=== PATIENT | male | born 1960 | race Two or more races ===

== ENCOUNTER → 2016-05-16 | Outpatient (CLI) | payer OTHER | LOC: M LAB 18:11 | PROVIDERS: ATTEND Physician Assistant | DX: R73.9 Hyperglycemia, unspecified (principal) ==

== ENCOUNTER → 2016-12-26 | Outpatient (CLI) | payer OTHER ==
[2016-12-26 17:45] LABS: BASO % 0.5 % (0.0-1.0); EOS # 0.1 K/mm3 (0.0-0.50); EOS % 1.4 % (0.0-3.0); LARGE UNSTAINED CELL # 0.2 K/mm3 (0.0-0.4); LYMPH # 2.1 K/mm3 (1.5-4.5); MEAN CORPUSCULAR HEMOGLOBIN 31.8 pg (27.0-33.0); MEAN CORPUSCULAR HGB CONC 34.1 g/dl (32.0-36.5); MEAN CORPUSCULAR VOLUME 93.3 fl (80.0-96.0); MONO # 0.5 K/mm3 (0.0-0.8); MONO % 5.9 % (0.0-5.0); NEUTROPHILS # 5.7 K/mm3 (1.8-7.7); NEUTROPHILS % 67.2 % (36.0-66.0); PLATELET COUNT, AUTOMATED 202 k/mm3 (150-450); RED CELL DISTRIBUTION WIDTH 13.1 % (11.5-14.5); WHITE BLOOD COUNT 8.5 K/mm3 (4.0-10.0)
[2016-12-26 18:50] LABS: ALBUMIN 3.5 GM/DL (3.2-5.2); ALBUMIN/GLOBULIN RATIO 0.83 (1.00-1.93); ALKALINE PHOSPHATASE 76 U/L (45-117); ALT/SGPT 34 U/L (12-78); ANION GAP 11 MEQ/L (8-16); AST/SGOT 22 U/L (15-37); BILIRUBIN,TOTAL 0.8 MG/DL (0.2-1.0); BLOOD UREA NITROGEN 21 MG/DL (7-18); CALCIUM LEVEL 8.2 MG/DL (8.5-10.1); CARBON DIOXIDE LEVEL 23 MEQ/L (21-32); CHLORIDE LEVEL 108 MEQ/L (98-107); CHOLESTEROL LEVEL 167 MG/DL (<200); CREATININE FOR GFR 0.87 MG/DL (0.70-1.30); FREE T4 0.94 NG/DL (0.76-1.46); GLOMERULAR FILTRATION RATE > 60.0 (>56); GLUCOSE, FASTING 102 MG/DL (70-105); POTASSIUM SERUM 4.4 MEQ/L (3.5-5.1); SODIUM LEVEL 142 MEQ/L (136-145); TOTAL PROTEIN 7.7 GM/DL (6.4-8.2); TRIGLYCERIDES LEVEL 86 MG/DL (<150)
== END ==
LOC: M LAB 17:10
PROVIDERS: ATTEND Physician Assistant
DX: Z13.29 Encounter for screening for other suspected endocrine disorder (principal); Z13.21 Encounter for screening for nutritional disorder

== ENCOUNTER → 2017-03-28 | Day surgery (SDC) | payer OTHER ==
[~2017-03-28] VITALS: Ht 175.3 cm; Wt 154.2 kg
[~2017-03-28] MED LIST: COLA100C5 PO; GLUC1CAP10 PO; LIDOCAINE 2% INJ 100 MG/5 ML SDV (FOR ANES.) As Ordered ONE; LISI-538; MELO15TA4; METO1TAB7; MULT1TAB10 PO; NS 1,000 ML IV ONE; OXYB10TA; PROPOFOL 200 MG/20 ML VIAL As Ordered ONE; TRAM50TA2; VITA500T PO; VITATAB11 PO
== END ==
LOC: M OPP 07:21
PROVIDERS: ATTEND Internal Medicine Gastroenterology
DX: Z12.11 Encounter for screening for malignant neoplasm of colon (principal); Z53.9 Procedure and treatment not carried out, unspecified reason

== ENCOUNTER → 2017-03-29 | Outpatient (CLI) | payer OTHER ==
[~2017-03-29] MED LIST changes: -LIDOCAINE 2% INJ 100 MG/5 ML SDV (FOR ANES.) As Ordered ONE; -NS 1,000 ML IV ONE; -PROPOFOL 200 MG/20 ML VIAL As Ordered ONE
[2017-03-29 16:09] LABS: BASO % 0.5 % (0.0-1.0); EOS # 0.1 10^3/uL (0.0-0.50); EOS % 1.3 % (0.0-3.0); IMMATURE GRANULOCYTE % 0.8 % (0-0); LYMPH # 1.6 10^3/uL (1.5-4.5); LYMPH % 20.4 % (24.0-44.0); MEAN CORPUSCULAR HEMOGLOBIN 30.5 pg (27.0-33.0); MEAN CORPUSCULAR HGB CONC 33.3 g/dl (32.0-36.5); MEAN CORPUSCULAR VOLUME 91.6 fl (80.0-96.0); MONO # 0.7 10^3/uL (0.0-0.8); MONO % 8.6 % (0.0-5.0); NEUTROPHILS # 5.2 10^3/uL (1.8-7.7); NEUTROPHILS % 68.4 % (36.0-66.0); PLATELET COUNT, AUTOMATED 210 10^3/uL (150-450); RED CELL DISTRIBUTION WIDTH 13.2 % (11.5-14.5); WHITE BLOOD COUNT 7.7 10^3/uL (4.0-10.0)
[2017-03-29 16:38] LABS: ALBUMIN 3.6 GM/DL (3.2-5.2); ALBUMIN/GLOBULIN RATIO 0.88 (1.00-1.93); ALKALINE PHOSPHATASE 80 U/L (45-117); ALT/SGPT 36 U/L (12-78); ANION GAP 8 MEQ/L (8-16); AST/SGOT 23 U/L (7-37); BILIRUBIN,TOTAL 0.8 MG/DL (0.2-1.0); BLOOD UREA NITROGEN 19 MG/DL (7-18); CALCIUM LEVEL 9.1 MG/DL (8.5-10.1); CARBON DIOXIDE LEVEL 26 MEQ/L (21-32); CHLORIDE LEVEL 106 MEQ/L (98-107); CREATININE FOR GFR 0.85 MG/DL (0.70-1.30); FERRITIN 73 NG/ML (26-388); GLOMERULAR FILTRATION RATE > 60.0 (>56); GLUCOSE, FASTING 113 MG/DL (70-105); PERCENT SATURATION 24.7 % (19.7-50.0); SODIUM LEVEL 140 MEQ/L (136-145); TOTAL IRON BINDING CAPACITY 279 UG/DL (250-450); TOTAL PROTEIN 7.7 GM/DL (6.4-8.2)
== END ==
LOC: M LAB 15:19
PROVIDERS: ATTEND Physician Assistant
DX: Z12.5 Encounter for screening for malignant neoplasm of prostate (principal); D64.9 Anemia, unspecified; I10 Essential (primary) hypertension; E55.9 Vitamin D deficiency, unspecified

== ENCOUNTER → 2017-07-11 | Outpatient (CLI) | payer OTHER | LOC: M PAIN 11:15 | DX: G89.29 Other chronic pain (principal); M54.5 Low back pain; M25.572 Pain in left ankle and joints of left foot; M25.571 Pain in right ankle and joints of right foot; M79.672 Pain in left foot; M79.671 Pain in right foot; E66.01 Morbid (severe) obesity due to excess calories; I10 Essential (primary) hypertension; R26.89 Other abnormalities of gait and mobility; I87.2 Venous insufficiency (chronic) (peripheral); Z87.891 Personal history of nicotine dependence; Z79.899 Other long term (current) drug therapy; Z88.2 Allergy status to sulfonamides; Z68.43 Body mass index [BMI] 50.0-59.9, adult | CPT/HCPCS: G0463 ==

== ENCOUNTER 2017-08-19 14:47 | Emergency (ER) | payer OTHER ==
[2017-08-19 15:56] LABS: KETONE, URINE AUTO RFX NEGATIVE (NEGATIVE); LEUKOCYTE ESTERASE UR AUTO RFX NEGATIVE (NEGATIVE); RBC, URINE AUTO RFX 1 /HPF (0-3); SPECIFIC GRAVITY UR AUTO RFX 1.017 (1.002-1.035); SQUAM EPITHELIAL CELL UR AURFX 0 /HPF (0-6); WBC, URINE AUTO RFX 1 /HPF (0-3)
[2017-08-19 16:35] LABS: NITRITE, URINE AUTO RFX POSITIVE (NEGATIVE)
== END 2017-08-19 16:48 | disposition home or self-care (01) ==
LOC: M ED 14:47
DX: N30.00 Acute cystitis without hematuria (principal); I10 Essential (primary) hypertension; G47.30 Sleep apnea, unspecified; N40.1 Benign prostatic hyperplasia with lower urinary tract symptoms; Z79.82 Long term (current) use of aspirin; Z79.899 Other long term (current) drug therapy; Z88.2 Allergy status to sulfonamides
CPT/HCPCS: 81001

== ENCOUNTER → 2017-08-29 | Outpatient (CLI) | payer OTHER ==
[2017-08-29 16:04] LABS: BASO # 0.1 10^3/uL (0.0-0.2); BASO % 0.8 % (0.0-1.0); EOS # 0.1 10^3/uL (0.0-0.50); EOS % 1.4 % (0.0-3.0); HEMATOCRIT 39.3 % (42.0-52.0); HEMOGLOBIN 13.4 g/dl (13.5-17.5); LYMPH # 1.6 10^3/uL (1.5-4.5); LYMPH % 20.3 % (24.0-44.0); MEAN CORPUSCULAR HEMOGLOBIN 31.9 pg (27.0-33.0); MEAN CORPUSCULAR HGB CONC 34.1 g/dl (32.0-36.5); MEAN CORPUSCULAR VOLUME 93.6 fl (80.0-96.0); MONO # 0.6 10^3/uL (0.0-0.8); MONO % 6.9 % (0.0-5.0); NEUTROPHILS # 5.6 10^3/uL (1.8-7.7); NEUTROPHILS % 69.6 % (36.0-66.0); PLATELET COUNT, AUTOMATED 196 10^3/uL (150-450); RED CELL DISTRIBUTION WIDTH 12.7 % (11.5-14.5)
[2017-08-29 16:14] LABS: ESTIMATED AVERAGE GLUCOSE 131 MG/DL (60-110); HEMOGLOBIN A1c 6.2 %
[2017-08-29 16:27] LABS: ALBUMIN 3.4 GM/DL (3.2-5.2); ALBUMIN/GLOBULIN RATIO 0.83 (1.00-1.93); ALKALINE PHOSPHATASE 86 U/L (45-117); ALT/SGPT 38 U/L (12-78); ANION GAP 7 MEQ/L (8-16); AST/SGOT 22 U/L (7-37); BILIRUBIN,TOTAL 0.6 MG/DL (0.2-1.0); BLOOD UREA NITROGEN 21 MG/DL (7-18); CALCIUM LEVEL 8.8 MG/DL (8.5-10.1); CARBON DIOXIDE LEVEL 26 MEQ/L (21-32); CHLORIDE LEVEL 108 MEQ/L (98-107); CREATININE FOR GFR 0.95 MG/DL (0.70-1.30); GLOMERULAR FILTRATION RATE > 60.0 (>56); GLUCOSE, FASTING 171 MG/DL (70-100); SODIUM LEVEL 141 MEQ/L (136-145); TOTAL 25(OH) VITAMIN D 30.8 NG/ML (30.0-100.0); TOTAL PROTEIN 7.5 GM/DL (6.4-8.2)
== END ==
LOC: M LAB 15:32
DX: R73.9 Hyperglycemia, unspecified (principal); I10 Essential (primary) hypertension; E55.9 Vitamin D deficiency, unspecified; R10.9 Unspecified abdominal pain
CPT/HCPCS: 74021

== ENCOUNTER → 2017-09-12 | Outpatient (CLI) | payer OTHER | LOC: M PAIN 14:00 | DX: G89.29 Other chronic pain (principal); M25.50 Pain in unspecified joint; M54.5 Low back pain; M79.672 Pain in left foot; M79.671 Pain in right foot; E66.01 Morbid (severe) obesity due to excess calories; I87.2 Venous insufficiency (chronic) (peripheral); R26.89 Other abnormalities of gait and mobility; I10 Essential (primary) hypertension; Z68.43 Body mass index [BMI] 50.0-59.9, adult; Z88.2 Allergy status to sulfonamides; Z79.891 Long term (current) use of opiate analgesic; Z79.899 Other long term (current) drug therapy | CPT/HCPCS: G0463 ==

== ENCOUNTER → 2017-11-07 | Outpatient (REF) | payer OTHER ==
[2017-11-07 19:07] LABS: AMORPHOUS SEDIMENT SMALL (NEGATIVE); APPEARANCE, URINE HAZY (CLEAR); BACTERIA, URINE AUTO NEGATIVE (NEGATIVE); BILIRUBIN, URINE AUTO NEGATIVE (NEGATIVE); BLOOD, URINE BLOOD NEGATIVE (NEGATIVE); COLOR, URINE YELLOW (YELLOW); GLUCOSE, URINE (UA) AUTO NEGATIVE (NEGATIVE); KETONE, URINE AUTO NEGATIVE (NEGATIVE); LEUKOCYTE ESTERASE, URINE AUTO NEGATIVE (NEGATIVE); MUCUS, URINE SMALL (NEGATIVE); NITRITE, URINE AUTO NEGATIVE (NEGATIVE); PROTEIN, URINE AUTO NEGATIVE (NEGATIVE); RBC, URINE AUTO 0 /HPF (0-3); SPECIFIC GRAVITY URINE AUTO 1.021 (1.002-1.035); SQUAMOUS EPITHELIAL CELL UR AU 1 /HPF (0-6); WBC, URINE AUTO 0 /HPF (0-3)
== END ==
LOC: M SMT 18:01
DX: N32.81 Overactive bladder (principal)
CPT/HCPCS: 81001

== ENCOUNTER → 2018-01-09 | Outpatient (CLI) | payer OTHER | LOC: M PAIN 11:45 | DX: M25.50 Pain in unspecified joint (principal); M54.5 Low back pain; M79.672 Pain in left foot; M79.671 Pain in right foot; G89.29 Other chronic pain; I10 Essential (primary) hypertension; G47.30 Sleep apnea, unspecified; E55.9 Vitamin D deficiency, unspecified; R73.9 Hyperglycemia, unspecified; E66.01 Morbid (severe) obesity due to excess calories; Z68.43 Body mass index [BMI] 50.0-59.9, adult; Z79.891 Long term (current) use of opiate analgesic; Z79.899 Other long term (current) drug therapy; Z88.2 Allergy status to sulfonamides | CPT/HCPCS: G0463 ==

== ENCOUNTER → 2018-06-05 | Outpatient (CLI) | payer OTHER ==
[~2018-06-05] MED LIST changes: +MACR100C43 PO; +MELO15TA28; -MELO15TA4
--- NOTE | 2018-06-13 01:16 | ECWPNPC ---
PATIENT NAME: RASHEEDA WELLER : 1960 GENDER: MALE VISIT DATE: 06/05/2018 DISCHARGE DATE: 06/05/18 1514 VISIT LOCKED DATE TIME: PHYSICIAN: JASON FRANCOIS RESOURCE: JASON FRANCOIS REASON FOR APPOINTMENT 1. APOLINAR FOOT AND KNEE PAIN HISTORY OF PRESENT ILLNESS HISTORY OF PRESENT ILLNESS: HERE FOR F/U OF CHRONIC BILAT. 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 PER DAY PRN FOR SEVERE PAIN EPISODES. PAIN THE PATIENT DESCRIBES THE PAIN... THE PATIENT DESCRIBES THE PAIN... THE PATIENT DESCRIBES THE PAIN... FALL RISK SCREENING: SCREENING :NO FALLS IN THE PAST YEAR CURRENT MEDICATIONS TAKING MULTIVITAMINS - CAPSULE ORALLY TAKING TRAMADOL HCL 50 MG TABLET 1 TABLET NEEDED ORALLY TID MDD#3 TAKING B COMPLEX - TABLET ORALLY TAKING TOPROL XL 50 MG TABLET EXTENDED RELEASE 24 HOUR 1 TABLET ORALLY ONCE A DAY TAKING LISINOPRIL 20 MG TABLET 1 TABLET ORALLY ONCE A DAY TAKING MOBIC 15 MG TABLET 1 TABLET ORALLY ONCE A DAY TAKING COLACE 100 MG CAPSULE 1 CAPSULE NEEDED ORALLY ONCE A DAY TAKING DRISDOL 94025 UNIT CAPSULE 1 CAPSULE ORALLY WEEKLY TAKING FLOMAX 0.4 MG CAPSULE 1 CAPSULE ORALLY ONCE A DAY MEDICATION LIST REVIEWED AND RECONCILED WITH THE PATIENT PAST MEDICAL HISTORY STASIS DERMATITIS MORBID OBESITY STASIS ULCER CHROMIC KNEE AND FOOT PAIN HTN HYPERKALEMIA SLEEP APNEA = VITAMIN D DEFICIENCY HYPERGLYCEMIA ANEMIA OAB, FREQ, URENCY ALLERGIES SULFA (FOR ALLERGY USE ONLY): STOMACH PAIN: SIDE EFFECTS SURGICAL HISTORY DEEP WOUND IN LUNG REPAIR 2009 FAMILY HISTORY FATHER: 60 YRS, QUADRUPAL BI-PASS, OF ESOPHOGEAL CANCER, DIAGNOSED WITH CANCER MOTHER: ALIVE 78 YRS, DIAGNOSED WITH HYPERTENSION SIBLINGS: ALIVE 54 YRS, BACK ISSUES. SISTER DISABLED, SISTER KIDNEY FAILURE, SISTER HAS KIDNEY STONES, DIAGNOSED WITH OTHER 1 SISTER(S) . SISTER: DIABLED D/T ABUSE FROM EX AND BACK RELATED ISSUES; HAS HAD CA PREVIOUSLY X2-PT UNSURE WHAT TYPE; HX OF KIDNEY STONES. SOCIAL HISTORY GENERAL: TOBACCO USE ARE YOU A:NONSMOKER LUNG CANCER SCREENING SMOKING STATUS:NON SMOKER BMI CARE GOAL FOLLOW-UP ABOVE NORMAL BMI FOLLOW-UPDIETARY MANAGEMENT EDUCATION, GUIDANCE, AND COUNSELING ALCOHOL SCREENING POINTS6 INTERPRETATIONPOSITIVE DID YOU HAVE A DRINK CONTAINING ALCOHOL IN THE PAST YEAR?YES HOW OFTEN DID YOU HAVE A DRINK CONTAINING ALCOHOL IN THE PAST YEAR?FOUR OR MORE TIMES A WEEK (4 POINTS) HOW MANY DRINKS DID YOU HAVE ON A TYPICAL DAY WHEN YOU WERE DRINKING IN THE PAST YEAR?3 OR 4 (1 POINT) HOW OFTEN DID YOU HAVE SIX OR MORE DRINKS ON ONE OCCASION IN THE PAST YEAR?LESS THAN MONTHLY (1 POINT) RECREATIONAL DRUG USE DRUG USE?NO CAFFEINE CAFFEINE USE?YES ENERGY DRINKS = 1 CAN PER DAY SODA = 1 CAN PER DAY HOW OFTEN AND HOW MUCH? 1 DAILY SEXUAL HX HAD SEX IN THE LAST 12 MONTHS (VAGINAL, ORAL, OR ANAL)?NO HAVE YOU EVER HAD AN STD?NO HIV / HEP-C SCREENING HIV TEST OFFERED TO PATIENT:YES DATE OFFERED:05/17/2016 TEST ACCEPTED:NO REASON:PATIENT DECLINED ALREADY TESTED HEP-C TEST OFFERED TO PATIENT:YES DATE OFFERED:05/17/2016 TEST ACCEPTED:NO REASON:PATIENT DECLINED ALREADY TESTED MANDAEISM [id number] NONE LANGUAGE LANGUAGES SPOKEN:PORTUGUESE EDUCATION LEVEL OF EDUCATION:FINISHED COLLEGE LEARNING BARRIERS / SPECIAL NEEDS CHANGE FROM LAST VISIT?NO BARRIERS TO LEARNING?NO HEARING IMPAIRED?NO VISION IMPAIRED?NO COGNITIVELY IMPAIRED?NO READINESS TO LEARN?YES LEARNING PREFERENCES?NO LEARNING CAPABILITIES PRESENT?YES EMOTIONAL BARRIERS?NO SPECIAL DEVICES?NO COGNOS ANALYST NEEDED?NO DOMESTIC VIOLENCE STATUS: DENIES 04/2018 DO YOU FEEL SAFE IN YOUR ENVIRONMENT?YES OCCUPATION: [employer] DIET: REGULAR. EXERCISE: NO REGULAR EXERCISE. MARITAL STATUS: SINGLE. OTHERS AT HOME: SISTER, NEPHEW. PAIN CLINIC PFS, CLERGY, PUBLIC HEALTH REFERRALS HAS THE PATIENT BEEN EDUCATED REGARDING HIS/HER PLAN OF CARE?YES HAS THE PATIENT BEEN EDUCATED REGARDING PAIN, THE RISK FOR PAIN, THE IMPORTANCE OF EFFECTIVE PAIN MANAGEMENT, AND THE PAIN ASSESSMENT PROCESS?YES PFS REFERRAL NEEDED?NO CLERGY REFERRAL NEEDED?NO PUBLIC HEALTH REFERRAL NEEDED?NO WAS THE PROVIDER NOTIFIED OF ANY PERTINENT INFO?NO HOUSING: SISTER, NEICE, NEPHEW. ADVANCE DIRECTIVE ADVANCE DIRECTIVE DISCUSSED WITH PATIENT:YES PT DOES NOT HAVE A HCP AND DECLINES INFO/ASSISTANCE WITH FORM AT THIS TIME. 06/05/18 BV REVIEWED WITH PT 06/05/18 [id number] BV. HOSPITALIZATION/MAJOR DIAGNOSTIC PROCEDURE SURGERY RELATED REVIEW OF SYSTEMS REVIEWED BY: PROVIDER: JASON BIRMINGHAM . CONSTITUTIONAL: ANY CHANGE IN YOUR MEDICAL CONDITION? NO . CHILLS NO . FEVER NO . INFECTION: DO YOU HAVE NEW INFECTIONS? YES, STATES HE HAS CURRENT EAR INFECTION IN LEFT EAR. HAS NOT SEEN PRIMARY DOCTOR YET FOR THIS. . DO YOU HAVE HISTORY OF MRSA? NO . MUSCULOSKELETAL: ANY NEW PATTERNS OF PAIN OR NUMBNESS? NO . GASTROENTEROLOGY: ANY NEW CHANGE IN BOWEL CONTROL? NO . GENITOURINARY: ANY NEW CHANGE IN BLADDER CONTROL? NO . IS THERE A CHANCE YOU COULD BE ? NO . HEMATOLOGY/LYMPH: DO YOU TAKE ANY BLOOD THINNERS? (FOR EXAMPLE- COUMADIN, PLAVIX, AGGRENOX, PLATEL, PRADAXA, OR XARELTO) NO . WHEN WAS YOUR LAST DOSE? DATE: TIME: . NEUROLOGY: HAVE YOU FALLEN IN THE PAST 12 MONTHS? NO . ANY NEW EXTREMITY NUMBNESS OR WEAKNESS? NO . CARDIOLOGY: DO YOU HAVE A PACEMAKER OR DEFIBRILLATOR? NO . RESPIRATORY: HAVE YOU BEEN SICK IN THE PAST WEEK? NO . FEVER NO . FLU LIKE SYMPTOMS? NO . COUGH NO . INTEGUMENTARY: DO YOU HAVE ANY RASHES OR OPEN SORES? NO . ALLERGIC/IMMUNO: ARE YOU ALLERGIC TO IV DYE? NO . ANY NEW ALLERGIES? NO . PSYCHIATRIC: DO YOU HAVE THOUGHTS OF HURTING YOURSELF OR SOMEONE ELSE? NO . ARE YOU ABUSED, NEGLECTED, OR IN AN UNSAFE ENVIRONMENT? NO . ENDOCRINOLOGY: ARE YOU DIABETIC? NO . OTHER: DO YOU NEED ANY PRESCRIPTIONS? YES, TRAMADOL . IF YES, PLEASE LIST: ____ . ANY NEW PROBLEMS WITH YOUR MEDICATIONS? NO . WHEN DID YOU LAST EAT? ____ . WHEN DID YOU LAST DRINK? ____ . WHAT DID YOU LAST DRINK? ____ . NAME OF PERSON DRIVING YOU HOME? ____ . DO YOU HAVE ANY OTHER QUESTIONS OR CONCERNS NO . VITAL SIGNS WT 357.8 LBS, HT 69 IN, BMI 52.83 INDEX, BP 154/74 MM HG, HR 80 /MIN, RR 18 /MIN, TEMP 99.4 F, OXYGEN SAT % 95%, NA INITIALS SC 14:19, REVIEWED BY: BV. EXAMINATION GENERAL EXAMINATION: GENERAL APPEARANCE:AWAKE,ALERT ,PLEAASANT . PSYCHAFFECT NORMAL . LUNGS:LUNG ARENAS ARE CLEAR TO AUSCULTATION BILATERALLY. GOOD MOVEMENT OF AIR . HEART:S1, S2 IN A REGULAR RATE AND RHYTHM. NO SIGNIFICANT MURMURS, RUBS OR GALLOPS NOTED . ASSESSMENTS ARTHRITIC-LIKE PAIN - M25.50 (PRIMARY) TREATMENT ARTHRITIC-LIKE PAIN REFILL TRAMADOL HCL TABLET, 50 MG, 1 TABLET NEEDED, ORALLY, TID MDD#3, 30 DAY(S), 90, REFILLS 2 NOTES: ISTOP REGISTRY REVIEWED AND DEMONSTRATES COMPLLIANCE. PROCEDURE CODES FA211 ESTABILISHED PATIENT [facility] CHARGE DISPOSITION & COMMUNICATION FOLLOW UP 3 MONTHS ELECTRONICALLY SIGNED BY VINNIE THORNTON ON 06/12/2018 AT 04:48 PM EST DISCLAIMER : THIS IS A VISIT SUMMARY EXTRACTED FROM THE [employer] CHART. IT IS NOT A COPY OF THE [employer] PROGRESS NOTE. JUNITOD
== END ==
LOC: M PAIN 14:00
PROVIDERS: ATTEND Nurse Practitioner Family
DX: M25.50 Pain in unspecified joint (principal); G89.29 Other chronic pain; I10 Essential (primary) hypertension; E87.5 Hyperkalemia; G47.33 Obstructive sleep apnea (adult) (pediatric); E66.01 Morbid (severe) obesity due to excess calories; Z68.43 Body mass index [BMI] 50.0-59.9, adult; Z88.2 Allergy status to sulfonamides; Z79.1 Long term (current) use of non-steroidal anti-inflammatories (NSAID); Z79.899 Other long term (current) drug therapy

== ENCOUNTER → 2018-07-03 | Outpatient (CLI) | payer OTHER ==
[2018-07-03 15:43] LABS: BASO % 0.5 % (0.0-1.0); EOS # 0.1 10^3/uL (0.0-0.50); EOS % 1.2 % (0.0-3.0); HEMATOCRIT 41.5 % (42.0-52.0); HEMOGLOBIN 13.7 g/dl (13.5-17.5); LYMPH # 1.5 10^3/uL (1.5-4.5); LYMPH % 18.1 % (24.0-44.0); MEAN CORPUSCULAR HEMOGLOBIN 29.8 pg (27.0-33.0); MEAN CORPUSCULAR VOLUME 90.4 fl (80.0-96.0); MONO # 0.6 10^3/uL (0.0-0.8); MONO % 7.9 % (0.0-5.0); NEUTROPHILS # 5.8 10^3/uL (1.8-7.7); NEUTROPHILS % 71.4 % (36.0-66.0); PLATELET COUNT, AUTOMATED 215 10^3/uL (150-450); RED BLOOD COUNT 4.59 10^6/uL (4.30-6.10); WHITE BLOOD COUNT 8.1 10^3/uL (4.0-10.0)
[2018-07-03 15:58] LABS: HEMOGLOBIN A1c 6.5 %
== END ==
LOC: M LAB 14:52
PROVIDERS: ATTEND Physician Assistant
DX: I10 Essential (primary) hypertension (principal); R73.9 Hyperglycemia, unspecified; F41.9 Anxiety disorder, unspecified; E55.9 Vitamin D deficiency, unspecified

== ENCOUNTER → 2018-07-10 | Outpatient (CLI) | payer OTHER ==
[2018-07-10 18:21] LABS: ALBUMIN 3.4 GM/DL (3.2-5.2); ALT/SGPT 34 U/L (12-78); BILIRUBIN,TOTAL 0.7 MG/DL (0.2-1.0); BLOOD UREA NITROGEN 21 MG/DL (7-18); CALCIUM LEVEL 8.8 MG/DL (8.5-10.1); CARBON DIOXIDE LEVEL 27 MEQ/L (21-32); CHLORIDE LEVEL 108 MEQ/L (98-107); CREATININE FOR GFR 0.86 MG/DL (0.70-1.30); GLOMERULAR FILTRATION RATE > 60.0 (>56); GLUCOSE, FASTING 108 MG/DL (70-100); POTASSIUM SERUM 4.2 MEQ/L (3.5-5.1); SODIUM LEVEL 142 MEQ/L (136-145); TOTAL PROTEIN 7.5 GM/DL (6.4-8.2)
[2018-07-10 18:27] LABS: TOTAL 25(OH) VITAMIN D 41.9 NG/ML (30.0-100.0)
== END ==
LOC: M LAB 17:05
PROVIDERS: ATTEND Physician Assistant
DX: R73.9 Hyperglycemia, unspecified (principal); F41.9 Anxiety disorder, unspecified; E55.9 Vitamin D deficiency, unspecified

== ENCOUNTER → 2018-11-20 | Outpatient (CLI) | payer OTHER ==
--- NOTE | 2018-12-02 01:20 | ECWPNPC ---
PATIENT NAME: RASHEEDA WELLER : 1960 GENDER: MALE VISIT DATE: 11/20/2018 DISCHARGE DATE: 11/20/18 1521 VISIT LOCKED DATE TIME: PHYSICIAN: JASON FRANCOIS RESOURCE: JASON FRANCOIS REASON FOR APPOINTMENT 1. FOOT/LEG HISTORY OF PRESENT ILLNESS HISTORY OF PRESENT ILLNESS: HERE FOR F/U OF CHRONIC BILAT. KNEE PAIN AND FOOT PAIN.USING TRAMADOL ON A REGULAR BASIS PRN FOR SEVERE PAIN WITH GOOD EFFECT.RATING PAIN VAS 6/10. PAIN THE PATIENT DESCRIBES THE PAIN... FALL RISK SCREENING: SCREENING :NO FALLS REPORTED IN THE LAST YEAR CURRENT MEDICATIONS TAKING MULTIVITAMINS - CAPSULE ORALLY TAKING B COMPLEX - TABLET ORALLY TAKING COLACE 100 MG CAPSULE 1 CAPSULE NEEDED ORALLY ONCE A DAY TAKING DRISDOL 02498 UNIT CAPSULE 1 CAPSULE ORALLY WEEKLY TAKING FLOMAX 0.4 MG CAPSULE 1 CAPSULE ORALLY ONCE A DAY TAKING TRAMADOL HCL 50 MG TABLET 1 TABLET NEEDED ORALLY TID MDD#3 TAKING LISINOPRIL 20 MG TABLET 1 TABLET ORALLY ONCE A DAY TAKING MOBIC 15 MG TABLET 1 TABLET ORALLY ONCE A DAY TAKING TOPROL XL 50 MG TABLET EXTENDED RELEASE 24 HOUR 1 TABLET ORALLY ONCE A DAY MEDICATION LIST REVIEWED AND RECONCILED WITH THE PATIENT PAST MEDICAL HISTORY STASIS DERMATITIS MORBID OBESITY STASIS ULCER CHROMIC KNEE AND FOOT PAIN HTN HYPERKALEMIA SLEEP APNEA = VITAMIN D DEFICIENCY HYPERGLYCEMIA ANEMIA OAB, FREQ, URENCY ALLERGIES SULFA (FOR ALLERGY USE ONLY): STOMACH PAIN - SIDE EFFECTS SURGICAL HISTORY DEEP WOUND IN LUNG REPAIR 2009 FAMILY HISTORY FATHER: 60 YRS, QUADRUPAL BI-PASS, OF ESOPHOGEAL CANCER, DIAGNOSED WITH CANCER MOTHER: ALIVE 78 YRS, HYPERTENSION SIBLINGS: ALIVE 54 YRS, BACK ISSUES. SISTER DISABLED, SISTER KIDNEY FAILURE, SISTER HAS KIDNEY STONES, OTHER 1 SISTER(S) . SISTER: DIABLED D\/T ABUSE FROM EX AND BACK RELATED ISSUES; HAS HAD CA PREVIOUSLY X2-PT UNSURE WHAT TYPE; HX OF KIDNEY STONES. SOCIAL HISTORY GENERAL: TOBACCO USE ARE YOU A:NONSMOKER HIV / HEP-C SCREENING HIV TEST OFFERED TO PATIENT:YES DATE OFFERED:05/17/2016 TEST ACCEPTED:NO REASON:PATIENT DECLINED ALREADY TESTED HEP-C TEST OFFERED TO PATIENT:YES DATE OFFERED:05/17/2016 TEST ACCEPTED:NO REASON:PATIENT DECLINED ALREADY TESTED OTHERS AT HOME: SISTER, NEPHEW. HOUSING: SISTER, NELINSEY, NEPHEW. EDUCATION LEVEL OF EDUCATION:FINISHED COLLEGE DIET: REGULAR. LANGUAGE LANGUAGES SPOKEN:[place] DOMESTIC VIOLENCE DO YOU FEEL SAFE IN YOUR ENVIRONMENT?YES BMI CARE GOAL FOLLOW-UP ABOVE NORMAL BMI FOLLOW-UPDIETARY MANAGEMENT EDUCATION, GUIDANCE, AND COUNSELING RECREATIONAL DRUG USE DRUG USE?NO EXERCISE: NO REGULAR EXERCISE. LEARNING BARRIERS / SPECIAL NEEDS CHANGE FROM LAST VISIT?NO BARRIERS TO LEARNING?NO HEARING IMPAIRED?NO VISION IMPAIRED?NO COGNITIVELY IMPAIRED?NO READINESS TO LEARN?YES LEARNING PREFERENCES?NO LEARNING CAPABILITIES PRESENT?YES EMOTIONAL BARRIERS?NO SPECIAL DEVICES?NO PHOTOVOLTAIC POWER SYSTEMS ENGINEER NEEDED?NO LUNG CANCER SCREENING SMOKING STATUS:NON SMOKER PAIN CLINIC PFS, CLERGY, PUBLIC HEALTH REFERRALS HAS THE PATIENT BEEN EDUCATED REGARDING HIS/HER PLAN OF CARE?YES HAS THE PATIENT BEEN EDUCATED REGARDING PAIN, THE RISK FOR PAIN, THE IMPORTANCE OF EFFECTIVE PAIN MANAGEMENT, AND THE PAIN ASSESSMENT PROCESS?YES LATEX QUESTIONNAIRE LATEX ALLERGY : HAVE YOU EVER DEVELOPED ANY TYPE OF REACTION AFTER HANDLING LATEX PRODUCTS SUCH RUBBER GLOVES, CONDOMS, DIAPHRAGMS, BALLOONS, SOCKS, OR UNDERWEAR?NO LATEX ALLERGY : HAVE YOU EVER DEVELOPED ANY TYPE OF REACTION DURING OR AFTER DENTAL APPOINTMENT, VAGINAL/RECTAL EXAMINATION, SURGICAL PROCEDURE, OR ANY OTHER EXPOSURE?NO LATEX RISK : HAVE YOU EVER HAD ANY DIFFICULTY BREATHING OR HIVES AFTER EATING OR HANDLING ANY FRUITS, OR VEGETABLES; SUCH KIWI, BANANAS, STONE FRUITS, OR CHESTNUTSNO LATEX RISK : DO YOU HAVE A PREVIOUS PERSONAL HISTORY OF MORE THAN NINE SURGERIES, SPINA BIFIDA, OR REPEATED CATHERIZATIONS? NO LATEX RISK : ARE YOU FREQUENTLY EXPOSED TO LATEX PRODUCTS IN YOUR OCCUPATION?YES DATE ASKED : 07/17/2018 CAFFEINE CAFFEINE USE?YES ENERGY DRINKS = 1 CAN PER DAY SODA = 1 CAN PER DAY HOW OFTEN AND HOW MUCH? 1 DAILY ADVANCE DIRECTIVE ADVANCE DIRECTIVE DISCUSSED WITH PATIENT:YES PT DOES NOT HAVE A HCP AND DECLINES INFO/ASSISTANCE WITH FORM AT THIS TIME. YARSANISM [id number] NONE MARITAL STATUS: SINGLE. ALCOHOL SCREENING DID YOU HAVE A DRINK CONTAINING ALCOHOL IN THE PAST YEAR?YES HOW OFTEN DID YOU HAVE A DRINK CONTAINING ALCOHOL IN THE PAST YEAR?FOUR OR MORE TIMES A WEEK (4 POINTS) HOW MANY DRINKS DID YOU HAVE ON A TYPICAL DAY WHEN YOU WERE DRINKING IN THE PAST YEAR?3 OR 4 (1 POINT) HOW OFTEN DID YOU HAVE SIX OR MORE DRINKS ON ONE OCCASION IN THE PAST YEAR?LESS THAN MONTHLY (1 POINT) POINTS6 INTERPRETATIONPOSITIVE OCCUPATION: [employer]. SEXUAL HX HAD SEX IN THE LAST 12 MONTHS (VAGINAL, ORAL, OR ANAL)?NO HAVE YOU EVER HAD AN STD?NO REVIEWED 06/16/18 LYNDSEY RNREVIEWED WITH PATIENT 11/20/18 1429 JS. HOSPITALIZATION/MAJOR DIAGNOSTIC PROCEDURE SURGERY RELATED REVIEW OF SYSTEMS REVIEWED BY: PROVIDER: JASON BIRMINGHAM . CONSTITUTIONAL: ANY CHANGE IN YOUR MEDICAL CONDITION? NO . CHILLS NO . FEVER NO . INFECTION: DO YOU HAVE NEW INFECTIONS? NO . DO YOU HAVE HISTORY OF MRSA? YES, HISTORY OF MRSA IN ANKLE . MUSCULOSKELETAL: ANY NEW PATTERNS OF PAIN OR NUMBNESS? NO . GASTROENTEROLOGY: ANY NEW CHANGE IN BOWEL CONTROL? NO . GENITOURINARY: ANY NEW CHANGE IN BLADDER CONTROL? NO . IS THERE A CHANCE YOU COULD BE ? NO . HEMATOLOGY/LYMPH: DO YOU TAKE ANY BLOOD THINNERS? (FOR EXAMPLE- COUMADIN, PLAVIX, AGGRENOX, PLATEL, PRADAXA, OR XARELTO) NO . WHEN WAS YOUR LAST DOSE? DATE: TIME: . NEUROLOGY: HAVE YOU FALLEN IN THE PAST 12 MONTHS? NO . ANY NEW EXTREMITY NUMBNESS OR WEAKNESS? NO . CARDIOLOGY: DO YOU HAVE A PACEMAKER OR DEFIBRILLATOR? NO . RESPIRATORY: HAVE YOU BEEN SICK IN THE PAST WEEK? NO . FEVER NO . FLU LIKE SYMPTOMS? NO . COUGH NO . INTEGUMENTARY: DO YOU HAVE ANY RASHES OR OPEN SORES? YES, OPEN SORE TO BACK OF RIGHT ANKLE . ALLERGIC/IMMUNO: ARE YOU ALLERGIC TO IV DYE? NO . ANY NEW ALLERGIES? NO . PSYCHIATRIC: DO YOU HAVE THOUGHTS OF HURTING YOURSELF OR SOMEONE ELSE? NO . ARE YOU ABUSED, NEGLECTED, OR IN AN UNSAFE ENVIRONMENT? NO . ENDOCRINOLOGY: ARE YOU DIABETIC? NO . OTHER: DO YOU NEED ANY PRESCRIPTIONS? YES . IF YES, PLEASE LIST: ____TRAMADOL . ANY NEW PROBLEMS WITH YOUR MEDICATIONS? NO . WHEN DID YOU LAST EAT? ____ . WHEN DID YOU LAST DRINK? ____ . WHAT DID YOU LAST DRINK? ____ . NAME OF PERSON DRIVING YOU HOME? ____ . DO YOU HAVE ANY OTHER QUESTIONS OR CONCERNS NO . VITAL SIGNS WT 361.2 LBS, HT 69 IN, BMI 53.33 INDEX, BP 167/70 MM HG, HR 76 /MIN, RR 18 /MIN, TEMP 97.5 F, OXYGEN SAT % 94%, SAFE IN ENV? (Y/N) YES, NA INITIALS SC 14:20, REVIEWED BY: MELL. EXAMINATION GENERAL EXAMINATION: GENERALAWAKE,ALERT ,PLEAASANT . PSYCHAFFECT NORMAL . LUNGS:LUNG ARENAS ARE CLEAR TO AUSCULTATION BILATERALLY. GOOD MOVEMENT OF AIR . HEART:S1, S2 IN A REGULAR RATE AND RHYTHM. NO SIGNIFICANT MURMURS, RUBS OR GALLOPS NOTED . ASSESSMENTS ARTHRITIC-LIKE PAIN - M25.50 (PRIMARY) TREATMENT ARTHRITIC-LIKE PAIN CONTINUE TRAMADOL HCL TABLET, 50 MG, 1 TABLET NEEDED, ORALLY, TID MDD#3 CONTINUE MOBIC TABLET, 15 MG, 1 TABLET, ORALLY, ONCE A DAY NOTES: ISTOP REGISTRY REVIEWED AND DEMONSTRATES COMPLLIANCE. BRINGS IN MEDICATIONS WHICH IS APPROPRIATE FOR WHAT WAS DISPENSED. RECENT URINE TOXICOLOGY REVIEWED. NO UNAUTHORIZED MEDICATIONS. NO ILLICIT SUBSTANCES AND PRESCRIBED MEDICATIONS WERE PRESENT. URINE TOX TODAY, RISKS AND BENEFITS OF NARCOTIC/OPIOD MEDICATIONS WERE REVIEWED WITH PATIENT - THIS INCLUDES BUT IS NOT LIMITED TO RISK OF DEPENDANCE/DEVELOPMENT OF ADDICTION, MOOD DISTURBANCE AND DEPRESSION, OSTEOPOROSIS, HORMONAL AND LABIDAL CHANGES, RESPIRATORY DEPRESSION AND . PATIENT IS ADVISED NOT TO DRIVE OR DRINK ALCOHOL WHILE ON THESE MEDICATIONS, RISKS AND BENEFITS OF NARCOTIC/OPIOD MEDICATIONS WERE REVIEWED WITH PATIENT - THIS INCLUDES BUT IS NOT LIMITED TO RISK OF DEPENDANCE/DEVELOPMENT OF ADDICTION, MOOD DISTURBANCE AND DEPRESSION, OSTEOPOROSIS, HORMONAL AND LABIDAL CHANGES, RESPIRATORY DEPRESSION AND . PATIENT IS ADVISED NOT TO DRIVE OR DRINK ALCOHOL WHILE ON THESE MEDICATIONS. PROCEDURE CODES FA211 ESTABILISHED PATIENT [facility] CHARGE DISPOSITION & COMMUNICATION FOLLOW UP 3 MONTHS (REASON: MED MGMNT) ELECTRONICALLY SIGNED BY VINNIE THORNTON ON 12/01/2018 AT 03:41 PM EDT DISCLAIMER : THIS IS A VISIT SUMMARY EXTRACTED FROM THE [employer] CHART. IT IS NOT A COPY OF THE [employer] PROGRESS NOTE. GAURAV
== END ==
LOC: M PAIN 13:30
PROVIDERS: ATTEND Nurse Practitioner Family
DX: M25.561 Pain in right knee (principal); M25.562 Pain in left knee; E66.01 Morbid (severe) obesity due to excess calories; I10 Essential (primary) hypertension; E87.5 Hyperkalemia; G47.30 Sleep apnea, unspecified; E55.9 Vitamin D deficiency, unspecified; R73.9 Hyperglycemia, unspecified; I87.2 Venous insufficiency (chronic) (peripheral); D64.9 Anemia, unspecified; N32.81 Overactive bladder; Z79.891 Long term (current) use of opiate analgesic; Z79.899 Other long term (current) drug therapy; Z79.1 Long term (current) use of non-steroidal anti-inflammatories (NSAID); Z88.2 Allergy status to sulfonamides

== ENCOUNTER → 2019-02-05 | Outpatient (CLI) | payer OTHER ==
[~2019-02-05] MED LIST changes: -OXYB10TA; +OXYB10TA2
[2019-02-05 12:01] LABS: BASO # 0.1 10^3/uL (0.0-0.2); BASO % 0.7 % (0.0-1.0); EOS # 0.2 10^3/uL (0.0-0.5); EOS % 1.9 % (0.0-3.0); HEMOGLOBIN 12.9 g/dl (13.5-17.5); LYMPH # 1.6 10^3/uL (1.5-5.0); MEAN CORPUSCULAR HEMOGLOBIN 31.3 pg (27.0-33.0); MEAN CORPUSCULAR HGB CONC 33.9 g/dl (32.0-36.5); MEAN CORPUSCULAR VOLUME 92.2 fl (80.0-96.0); MONO # 0.8 10^3/uL (0.0-0.8); NEUTROPHILS # 5.3 10^3/uL (1.5-8.5); PLATELET COUNT, AUTOMATED 234 10^3/uL (150-450); RED BLOOD COUNT 4.12 10^6/uL (4.30-6.10)
[2019-02-05 12:24] LABS: HEMOGLOBIN A1c 6.2 %
[2019-02-05 12:26] LABS: ALBUMIN 3.3 GM/DL (3.2-5.2); ALT/SGPT 35 U/L (12-78); BILIRUBIN,TOTAL 0.7 MG/DL (0.2-1.0); BLOOD UREA NITROGEN 19 MG/DL (7-18); CALCIUM LEVEL 9.3 MG/DL (8.5-10.1); CARBON DIOXIDE LEVEL 27 MEQ/L (21-32); CHLORIDE LEVEL 105 MEQ/L (98-107); CHOLESTEROL LEVEL 130 MG/DL (<200); CHOLESTEROL RISK RATIO 3.421 (<5); CREATININE FOR GFR 0.79 MG/DL (0.70-1.30); GLOMERULAR FILTRATION RATE > 60.0 (>56); GLUCOSE, FASTING 105 MG/DL (70-100); HDL CHOLESTEROL 38 MG/DL (>40); LDL CHOLESTEROL 76 MG/DL (<100); NON-HDL-C 92 MG/DL; POTASSIUM SERUM 4.1 MEQ/L (3.5-5.1); SODIUM LEVEL 138 MEQ/L (136-145); TOTAL PROTEIN 7.1 GM/DL (6.4-8.2); TRIGLYCERIDES LEVEL 81 MG/DL (<150)
[2019-02-05 12:30] LABS: TOTAL 25(OH) VITAMIN D 47.7 NG/ML (30.0-100.0)
== END ==
LOC: M LAB 10:36
PROVIDERS: ATTEND Physician Assistant
DX: I10 Essential (primary) hypertension (principal)

== ENCOUNTER → 2019-02-19 | Outpatient (CLI) | payer OTHER ==
--- NOTE | 2019-03-01 03:25 | ECWPNPC ---
PATIENT NAME: RASHEEDA WELLER : 1960 GENDER: MALE VISIT DATE: 02/19/2019 DISCHARGE DATE: 02/19/19 1446 VISIT LOCKED DATE TIME: PHYSICIAN: JASON FRANCOIS RESOURCE: JASON FRANCOIS REASON FOR APPOINTMENT 1. MED MANAGEMENT HISTORY OF PRESENT ILLNESS HISTORY OF PRESENT ILLNESS: HERE FOR F/U OF CHRONIC BILAT. KNEE PAIN AND FOOT PAIN.USING TRAMADOL ON A REGULAR BASIS PRN FOR SEVERE PAIN WITH GOOD EFFECT.RATING PAIN VAS 7/10. PAIN THE PATIENT DESCRIBES THE PAIN... THE PATIENT DESCRIBES THE PAIN... FALL RISK SCREENING: SCREENING :NO FALLS REPORTED IN THE LAST YEAR CURRENT MEDICATIONS TAKING MULTIVITAMINS - CAPSULE ORALLY TAKING B COMPLEX - TABLET ORALLY TAKING DRISDOL 23581 UNIT CAPSULE 1 CAPSULE ORALLY WEEKLY TAKING TOPROL XL 50 MG TABLET EXTENDED RELEASE 24 HOUR 1 TABLET ORALLY ONCE A DAY TAKING MOBIC 15 MG TABLET 1 TABLET ORALLY ONCE A DAY TAKING FLOMAX 0.4 MG CAPSULE 1 CAPSULE ORALLY ONCE A DAY TAKING COLACE 100 MG CAPSULE 1 CAPSULE NEEDED ORALLY ONCE A DAY TAKING TRAMADOL HCL 50 MG TABLET 1 TABLET NEEDED ORALLY TID MDD#3 TAKING VITAMIN C 1000 MG TABLET CHEWABLE 1 CAP ORALLY DAILY TAKING LISINOPRIL 30 MG TABLET 1 TABLET ORALLY ONCE A DAY TAKING LORATADINE 10 MG TABLET 1 TABLET ORALLY ONCE A DAY MEDICATION LIST REVIEWED AND RECONCILED WITH THE PATIENT PAST MEDICAL HISTORY STASIS DERMATITIS MORBID OBESITY STASIS ULCER CHROMIC KNEE AND FOOT PAIN HTN HYPERKALEMIA SLEEP APNEA = VITAMIN D DEFICIENCY HYPERGLYCEMIA ANEMIA OAB, FREQ, URENCY HISTORY OF IV DRUG ABUSE, LAST USE 2000 ALLERGIES SULFA (FOR ALLERGY USE ONLY): STOMACH PAIN - SIDE EFFECTS SURGICAL HISTORY DEEP WOUND IN LUNG REPAIR 2009 FAMILY HISTORY FATHER: 60 YRS, QUADRUPAL BI-PASS, OF ESOPHOGEAL CANCER, DIAGNOSED WITH OTHER MALIGNANT NEOPLASM OF UNSPECIFIED SITE MOTHER: ALIVE 78 YRS, HYPERTENSION SIBLINGS: ALIVE 54 YRS, BACK ISSUES. SISTER DISABLED, SISTER KIDNEY FAILURE, SISTER HAS KIDNEY STONES, OTHER SPECIFIED CONDITIONS INFLUENCING HEALTH STATUS 1 SISTER(S) . SISTER: DIABLED D\\/T ABUSE FROM EX AND BACK RELATED ISSUES; HAS HAD CA PREVIOUSLY X2-PT UNSURE WHAT TYPE; HX OF KIDNEY STONESSISTER RECENTLY DIAGNOSED WITH THYROID CANCER. SOCIAL HISTORY GENERAL: TOBACCO USE ARE YOU A:NONSMOKER HIV / HEP-C SCREENING HIV TEST OFFERED TO PATIENT:YES DATE OFFERED:05/17/2016 TEST ACCEPTED:NO HEP-C TEST OFFERED TO PATIENT:YES DATE OFFERED:05/17/2016 REASON:PATIENT DECLINED ALREADY TESTED TEST ACCEPTED:NO REASON:PATIENT DECLINED ALREADY TESTED OTHERS AT HOME: SISTER, NEPHEW. HOUSING: SISTER, SHAKILA, NEPHEW. EDUCATION LEVEL OF EDUCATION:FINISHED COLLEGE DIET: REGULAR. LANGUAGE LANGUAGES SPOKEN:TAMAZIGHT DOMESTIC VIOLENCE DO YOU FEEL SAFE IN YOUR ENVIRONMENT?YES BMI CARE GOAL FOLLOW-UP ABOVE NORMAL BMI FOLLOW-UPDIETARY MANAGEMENT EDUCATION, GUIDANCE, AND COUNSELING RECREATIONAL DRUG USE DRUG USE?NO EXERCISE: NO REGULAR EXERCISE. LEARNING BARRIERS / SPECIAL NEEDS CHANGE FROM LAST VISIT?NO BARRIERS TO LEARNING?NO HEARING IMPAIRED?NO VISION IMPAIRED?NO COGNITIVELY IMPAIRED?NO READINESS TO LEARN?YES LEARNING PREFERENCES?NO LEARNING CAPABILITIES PRESENT?YES EMOTIONAL BARRIERS?NO SPECIAL DEVICES?NO FORGING ROLL OPERATOR NEEDED?NO LUNG CANCER SCREENING SMOKING STATUS:NON SMOKER PAIN CLINIC PFS, CLERGY, PUBLIC HEALTH REFERRALS HAS THE PATIENT BEEN EDUCATED REGARDING HIS/HER PLAN OF CARE?YES HAS THE PATIENT BEEN EDUCATED REGARDING PAIN, THE RISK FOR PAIN, THE IMPORTANCE OF EFFECTIVE PAIN MANAGEMENT, AND THE PAIN ASSESSMENT PROCESS?YES LATEX QUESTIONNAIRE LATEX ALLERGY : HAVE YOU EVER DEVELOPED ANY TYPE OF REACTION AFTER HANDLING LATEX PRODUCTS SUCH RUBBER GLOVES, CONDOMS, DIAPHRAGMS, BALLOONS, SOCKS, OR UNDERWEAR?NO LATEX ALLERGY : HAVE YOU EVER DEVELOPED ANY TYPE OF REACTION DURING OR AFTER DENTAL APPOINTMENT, VAGINAL/RECTAL EXAMINATION, SURGICAL PROCEDURE, OR ANY OTHER EXPOSURE?NO DATE ASKED : 07/17/2018 LATEX RISK : HAVE YOU EVER HAD ANY DIFFICULTY BREATHING OR HIVES AFTER EATING OR HANDLING ANY FRUITS, OR VEGETABLES; SUCH KIWI, BANANAS, STONE FRUITS, OR CHESTNUTSNO LATEX RISK : DO YOU HAVE A PREVIOUS PERSONAL HISTORY OF MORE THAN NINE SURGERIES, SPINA BIFIDA, OR REPEATED CATHERIZATIONS? NO LATEX RISK : ARE YOU FREQUENTLY EXPOSED TO LATEX PRODUCTS IN YOUR OCCUPATION?YES CAFFEINE CAFFEINE USE?YES ENERGY DRINKS = 1 CAN PER DAY SODA = 1 CAN PER DAY HOW OFTEN AND HOW MUCH? 1 DAILY ADVANCE DIRECTIVE ADVANCE DIRECTIVE DISCUSSED WITH PATIENT:YES PT DOES NOT HAVE A HCP AND DECLINES INFO/ASSISTANCE WITH FORM AT THIS TIME. CONFUCIANIST [id number] NONE MARITAL STATUS: SINGLE. ALCOHOL SCREENING DID YOU HAVE A DRINK CONTAINING ALCOHOL IN THE PAST YEAR?YES HOW OFTEN DID YOU HAVE SIX OR MORE DRINKS ON ONE OCCASION IN THE PAST YEAR?LESS THAN MONTHLY (1 POINT) HOW MANY DRINKS DID YOU HAVE ON A TYPICAL DAY WHEN YOU WERE DRINKING IN THE PAST YEAR?3 OR 4 (1 POINT) HOW OFTEN DID YOU HAVE A DRINK CONTAINING ALCOHOL IN THE PAST YEAR?FOUR OR MORE TIMES A WEEK (4 POINTS) POINTS6 INTERPRETATIONPOSITIVE OCCUPATION: [employer]. SEXUAL HX HAD SEX IN THE LAST 12 MONTHS (VAGINAL, ORAL, OR ANAL)?NO HAVE YOU EVER HAD AN STD?NO REVIEWED 06/16/18 LYNDSEY RNREVIEWED WITH PATIENT 11/20/18 1429 JSREVIEWED WITH PATIENT 02/19/19 1356 NLJ. HOSPITALIZATION/MAJOR DIAGNOSTIC PROCEDURE SURGERY RELATED REVIEW OF SYSTEMS REVIEWED BY: PROVIDER: JASON BIRMINGHAM . CONSTITUTIONAL: ANY CHANGE IN YOUR MEDICAL CONDITION? NO . CHILLS NO . FEVER NO . INFECTION: DO YOU HAVE NEW INFECTIONS? NO . DO YOU HAVE HISTORY OF MRSA? NO . MUSCULOSKELETAL: ANY NEW PATTERNS OF PAIN OR NUMBNESS? NO- STATES THAT PAIN IS "ABOUT THE SAME GENERALLY", STATES TRAMADOL DOES HELP WITH PAIN . GASTROENTEROLOGY: ANY NEW CHANGE IN BOWEL CONTROL? NO . GENITOURINARY: ANY NEW CHANGE IN BLADDER CONTROL? NO . IS THERE A CHANCE YOU COULD BE ? NO . HEMATOLOGY/LYMPH: DO YOU TAKE ANY BLOOD THINNERS? (FOR EXAMPLE- COUMADIN, PLAVIX, AGGRENOX, PLATEL, PRADAXA, OR XARELTO) NO . WHEN WAS YOUR LAST DOSE? DATE: TIME: . NEUROLOGY: HAVE YOU FALLEN IN THE PAST 12 MONTHS? NO . ANY NEW EXTREMITY NUMBNESS OR WEAKNESS? NO . CARDIOLOGY: DO YOU HAVE A PACEMAKER OR DEFIBRILLATOR? NO . RESPIRATORY: HAVE YOU BEEN SICK IN THE PAST WEEK? NO . FEVER NO . FLU LIKE SYMPTOMS? NO . COUGH NO . INTEGUMENTARY: DO YOU HAVE ANY RASHES OR OPEN SORES? YES- RASH . ALLERGIC/IMMUNO: ARE YOU ALLERGIC TO IV DYE? NO . ANY NEW ALLERGIES? NO . PSYCHIATRIC: DO YOU HAVE THOUGHTS OF HURTING YOURSELF OR SOMEONE ELSE? NO . ARE YOU ABUSED, NEGLECTED, OR IN AN UNSAFE ENVIRONMENT? NO . ENDOCRINOLOGY: ARE YOU DIABETIC? NO . OTHER: DO YOU NEED ANY PRESCRIPTIONS? YES . IF YES, PLEASE LIST: ____TRAMADOL . ANY NEW PROBLEMS WITH YOUR MEDICATIONS? NO . WHEN DID YOU LAST EAT? ____ . WHEN DID YOU LAST DRINK? ____ . WHAT DID YOU LAST DRINK? ____ . NAME OF PERSON DRIVING YOU HOME? ____ . DO YOU HAVE ANY OTHER QUESTIONS OR CONCERNS NO- RECEIVED THE FLU SHOT LAST WEEK (01/2019) . VITAL SIGNS WT 357.4 LBS, HT 69 IN, BMI 52.77 INDEX, BP 146/64 MM HG, HR 88 /MIN, RR 20 /MIN, TEMP 97.6 F, OXYGEN SAT % 95%, SAFE IN ENV? (Y/N) YES, NA INITIALS MI 14:04, REVIEWED BY: YADIRA. EXAMINATION GENERAL EXAMINATION: GENERALAWAKE,ALERT ,PLEAASANT . PSYCHAFFECT NORMAL . LUNGS:LUNG ARENAS ARE CLEAR TO AUSCULTATION BILATERALLY. GOOD MOVEMENT OF AIR . HEART:S1, S2 IN A REGULAR RATE AND RHYTHM. NO SIGNIFICANT MURMURS, RUBS OR GALLOPS NOTED . ASSESSMENTS ARTHRITIC-LIKE PAIN - M25.50 (PRIMARY) TREATMENT ARTHRITIC-LIKE PAIN CONTINUE TRAMADOL HCL TABLET, 50 MG, 1 TABLET NEEDED, ORALLY, TID MDD#3 NOTES: ISTOP REGISTRY REVIEWED AND DEMONSTRATES COMPLLIANCE. BRINGS IN MEDICATIONS WHICH IS APPROPRIATE FOR WHAT WAS DISPENSED. RECENT URINE TOXICOLOGY REVIEWED. NO UNAUTHORIZED MEDICATIONS. NO ILLICIT SUBSTANCES AND PRESCRIBED MEDICATIONS WERE PRESENT. , RISKS OF NARCOTIC/OPIOD MEDICATIONS INCLUDES BUT IS NOT LIMITED TO RISK OF DEPENDANCE/DEVELOPMENT OF ADDICTION, MOOD DISTURBANCE AND DEPRESSION, OSTEOPOROSIS, HORMONAL AND LABIDAL CHANGES, RESPIRATORY DEPRESSION AND . PATIENT IS ADVISED NOT TO DRIVE OR DRINK ALCOHOL WHILE ON THESE MEDICATIONS. REFERRAL TO:[facility] [place] [facility] REASON:LOWER EXTREMITY NEUROPATHY-MANAGEABLE ON TRAMADO 3 TAB PER DAY PROCEDURE CODES FA211 ESTABILISHED PATIENT [facility] FACILITY CHARGE DISPOSITION & COMMUNICATION FOLLOW UP STAR REFERRAL ELECTRONICALLY SIGNED BY VINNIE THORNTON ON 02/28/2019 AT 03:36 PM EDT DISCLAIMER : THIS IS A VISIT SUMMARY EXTRACTED FROM THE [employer] CHART. IT IS NOT A COPY OF THE [employer] PROGRESS NOTE. MTDD
== END ==
LOC: M PAIN 13:45
PROVIDERS: ATTEND Nurse Practitioner Family
DX: M25.50 Pain in unspecified joint (principal); G89.29 Other chronic pain; I10 Essential (primary) hypertension; G47.30 Sleep apnea, unspecified; E55.9 Vitamin D deficiency, unspecified; Z88.2 Allergy status to sulfonamides; E66.01 Morbid (severe) obesity due to excess calories; Z68.43 Body mass index [BMI] 50.0-59.9, adult; Z79.899 Other long term (current) drug therapy

== ENCOUNTER → 2019-02-26 | Outpatient (CLI) | payer OTHER ==
--- NOTE | 2019-02-26 15:52 | REP ---
Clinical: Right lower extremity varicosities and nonhealing ulcer . Technique: Goodrich scale and color Doppler evaluation using linear high frequency transducer with reflux evaluation . Findings: Ultrasound examination of the right lower extremity deep venous structures from the common femoral vein to the popliteal vein demonstrates normal compressibility flow and wave patterns in response to respiration and augmentation. There is no evidence for deep venous thrombosis. Barbosa's cyst along the medial popliteal fossa measures 4.1 x 1.4 x 1.9 cm. Reflux noted through the deep system including common femoral vein, superficial femoral vein and popliteal vein as well as through the distal greater saphenous vein at the knee which measures 7.5 mm diameter with a reflux duration of 3.9 seconds. Reflux also identified within the anterior accessory saphenous vein to the mid thigh with multiple collateral varicosities. Impression: No evidence for deep venous thrombosis. Elements of reflux disease as noted above primarily involving the deep venous system and anterior accessory saphenous vein with associated collateral varicosities. Electronically Signed by Salvador Hurley MD 02/26/2019 03:43 P
== END ==
LOC: M RAD 13:57
PROVIDERS: ATTEND Family Medicine
DX: I83.012 Varicose veins of right lower extremity with ulcer of calf (principal)

== ENCOUNTER → 2019-12-17 | Outpatient (CLI) | payer OTHER ==
[~2019-12-17] MED LIST changes: -OXYB10TA2; +OXYB10TA23; +VITA-243 PO; -VITA500T PO
[2020-02-14 14:42] LABS: BLOOD UREA NITROGEN 15 MG/DL (7-18); CREATININE FOR GFR 0.86 MG/DL (0.70-1.30); GLOMERULAR FILTRATION RATE > 60.0 (>56); GLUCOSE, FASTING 124 MG/DL (70-100); POTASSIUM SERUM 4.4 MEQ/L (3.5-5.1); SODIUM LEVEL 135 MEQ/L (136-145)
[2020-02-14 14:43] LABS: ALT/SGPT 44 IU/L (0-32); BILIRUBIN,TOTAL 0.7 MG/DL (0.2-1.0); CALCIUM LEVEL 8.8 MG/DL (8.5-10.1); CARBON DIOXIDE LEVEL 24 mmol/L (20-29); CHLORIDE LEVEL 106 MEQ/L (98-107)
[2020-02-14 14:44] LABS: TRIGLYCERIDES LEVEL 91 MG/DL (<150)
[2020-02-14 14:45] LABS: ALBUMIN 3.4 GM/DL (3.2-5.2); CHOLESTEROL LEVEL 144 MG/DL (<200); CHOLESTEROL RISK RATIO 3.692 (<5); HDL CHOLESTEROL 39 MG/DL (>40); LDL CHOLESTEROL 86.8 MG/DL (<100); NON-HDL-C 105 MG/DL; TOTAL PROTEIN 7.3 GM/DL (6.4-8.2)
[2020-02-14 16:15] LABS: HEMATOCRIT 38.9 % (42.0-52.0); HEMOGLOBIN 12.7 g/dl (13.5-17.5); MEAN CORPUSCULAR HEMOGLOBIN 30.7 pg (27.0-33.0); MEAN CORPUSCULAR HGB CONC 32.6 g/dl (32.0-36.5); PLATELET COUNT, AUTOMATED 232 10^3/uL (150-450); RED BLOOD COUNT 4.14 10^6/uL (4.30-6.10); WHITE BLOOD COUNT 8.2 10^3/uL (4.0-10.0)
== END ==
LOC: M LAB 15:14
PROVIDERS: ATTEND Family Medicine
DX: E78.00 Pure hypercholesterolemia, unspecified (principal); I10 Essential (primary) hypertension

== ENCOUNTER → 2020-01-14 | Outpatient (CLI) | payer OTHER ==
--- NOTE | 2020-01-30 10:51 | REP ---
LUMBOSACRAL SPINE SERIES CLINICAL: Lower back pain. TECHNIQUE: AP, lateral, bilateral oblique, and sunrise views of the lumbosacral spine. FINDINGS: No acute fracture/compression injury or subluxation. Moderate/advanced multilevel degenerative changes are appreciated primarily involving the visualized lower thoracic and upper lumbar spine including osteophytosis, endplate sclerosis, and disc space narrowing. Oblique views cannot exclude spondylolysis at L5-S1. IMPRESSION: Moderate to advanced multilevel degenerative changes primarily involving the lower thoracic and upper lumbar spine, as well as L5-S1. MTDD
== END ==
LOC: M ADAMS 16:18
PROVIDERS: ATTEND Family Medicine
DX: M51.37 Other intervertebral disc degeneration, lumbosacral region (principal)

== ENCOUNTER → 2020-01-21 | Outpatient (CLI) | payer OTHER ==
[2020-01-21 16:19] LABS: ALBUMIN 3.3 GM/DL (3.2-5.2); ALT/SGPT 38 U/L (12-78); BILIRUBIN,TOTAL 0.6 MG/DL (0.2-1.0); BLOOD UREA NITROGEN 18 MG/DL (7-18); CARBON DIOXIDE LEVEL 26 MEQ/L (21-32); CHLORIDE LEVEL 108 MEQ/L (98-107); CREATININE FOR GFR 0.84 MG/DL (0.70-1.30); GLOMERULAR FILTRATION RATE > 60.0 (>56); GLUCOSE, FASTING 111 MG/DL (70-100); POTASSIUM SERUM 4.2 MEQ/L (3.5-5.1); SODIUM LEVEL 138 MEQ/L (136-145); TOTAL PROTEIN 7.4 GM/DL (6.4-8.2)
[2020-01-21 17:00] LABS: HEMOGLOBIN A1c 6.1 %
== END ==
LOC: M LAB 15:13
PROVIDERS: ATTEND Family Medicine
DX: R73.01 Impaired fasting glucose (principal)

== ENCOUNTER → 2020-03-17 | Outpatient (REF) | payer OTHER ==
[~2020-03-17] MED LIST changes: +AUGM875T28 PO; +FLOM0.4C39 PO; +LISI30TA4 PO; +MELO15TA28 PO; +METO1TAB7 PO; +MULTCAP PO; +TRAM50TA2 PO; +VITA50005 PO; +VITATAB73 PO
== END ==
LOC: M LAB REF 15:13
PROVIDERS: ATTEND Podiatrist
DX: L03.119 Cellulitis of unspecified part of limb (principal); M79.671 Pain in right foot

== ENCOUNTER → 2020-04-15 | Outpatient (REF) | payer OTHER | LOC: M LAB REF 16:08 | PROVIDERS: ATTEND Physician Assistant | DX: R35.0 Frequency of micturition (principal) ==

== ENCOUNTER → 2020-04-21 | Outpatient (REF) | payer OTHER | LOC: M LAB REF 21:22 | PROVIDERS: ATTEND Physician Assistant Medical | DX: U07.1 COVID-19 (principal) ==

== ENCOUNTER → 2020-04-30 | Outpatient (CLI) | payer OTHER ==
--- NOTE | 2020-04-30 16:27 | REPPI ---
INDICATION: COUGH, SOB, COVID-19 COMPARISON: None. TECHNIQUE: PA and lateral. FINDINGS: The mediastinum and cardiac silhouette are normal. Primarily left-sided infiltrates are appreciated along with suspicious bilateral round pulmonary mass lesions measuring roughly up to 3.5 cm concerning for the possibility of underlying metastatic disease and correlation is required. No effusion. No pneumothorax. Skeletal structures suggest old healed left rib fractures. IMPRESSION: 1. Multifocal airspace disease primarily involving the left lung consistent with pneumonia and COVID-19 pulmonary disease. 2. Suspicious bilateral rounded mass lesions up to 3.5 cm concerning for metastatic disease <Electronically signed by Salvador Hurley > 04/30/20 [id number]
== END ==
LOC: M PLARAD 15:18
PROVIDERS: ATTEND Physician Assistant
DX: U07.1 COVID-19 (principal); R06.02 Shortness of breath

== ENCOUNTER → 2020-06-02 | Outpatient (CLI) | payer OTHER ==
--- NOTE | 2020-06-03 09:04 | REP ---
INDICATION: ABNORMAL CHEST XRAY COMPARISON: None TECHNIQUE: Axial noncontrast images from the thoracic inlet to the upper abdomen with coronal and sagittal reformations. This CT examination was performed using the following dose reduction techniques: Automated exposure control, adjustment of mA and/or kv according to the patient's size, and use of iterative reconstruction technique. FINDINGS: Lung vanegas demonstrate innumerable bilateral rounded nodular mass lesions measuring up to 5.0 cm diameter along with mediastinal and left hilar adenopathy consistent with malignancy and metastatic disease. No effusion. No pneumothorax. Atherosclerotic changes to the thoracic aorta and coronary arteries noted without aortic aneurysm or cardiomegaly. No pericardial effusion. Limited upper abdomen demonstrates innumerable low-density lesions throughout the liver again consistent with metastatic disease. Enlarged lymph nodes in the gastrohepatic ligament are also identified measuring up to 3 cm. Normal bilateral adrenal glands. IMPRESSION: Findings consistent with malignancy/metastatic disease. <Electronically signed by Salvador Hurley > 06/03/20 0901
== END ==
LOC: M RAD 15:46
PROVIDERS: ATTEND Family Medicine
DX: R93.89 Abnormal findings on diagnostic imaging of other specified body structures (principal); R91.8 Other nonspecific abnormal finding of lung field; I70.0 Atherosclerosis of aorta; I25.10 Atherosclerotic heart disease of native coronary artery without angina pectoris; K76.89 Other specified diseases of liver; R59.0 Localized enlarged lymph nodes

== ENCOUNTER → 2020-06-20 | Outpatient (CLI) | payer OTHER ==
[~2020-06-20] MED LIST changes: +DOK1CAP7 PO; -LISI-538; +LISI20TA33; +MULT-90 PO; +TAMS1CAP17 PO
== END ==
LOC: M LABSMTC 13:13
PROVIDERS: ATTEND Anesthesiology
DX: Z01.812 Encounter for preprocedural laboratory examination (principal); Z20.822 Contact with and (suspected) exposure to COVID-19

== ENCOUNTER 2020-06-25 11:17 | Day surgery (SDC) | payer OTHER ==
[~2020-06-25] VITALS: Ht 172.7 cm; Wt 135.5 kg
[~2020-06-25 11:17] MED LIST changes: -ALBU8.5H INH; -GINKGO BILOBA PO; -HYDR-3713 PO; -LIDOCAINE 1% MDV 20ML VIAL As Ordered ONE; -MAGICMW SSP; +NS 1,000 ML IV ONE; -ONDA8TAB10 PO; -PROC10TA4 PO; -SODIUM CHLORIDE 0.9% INJ 10 ML SYR IV PRN; -SODIUM CHLORIDE 0.9% INJ 10 ML SYR IV SCH; -TAMS1CAP17; -[UNRECOGNIZED DRUG - REMARK] PO
[2020-06-25] MEDS ORDERED: GINKGO BILOBA PO (11:57)
[2020-06-25] MEDS ORDERED: [UNRECOGNIZED DRUG - REMARK] PO (11:57)
--- NOTE | 2020-06-25 14:32 | ROOR ---
Patient Name: Cirilo Begum Procedure Date: 06/25/2020 1:55 PM Date of : 1960 Age: 59 Room: [facility] Gender: Male Note Status: Finalized Procedure: Colonoscopy Indications: Rectal bleeding, Abnormal CT of the GI tract- chest CT shows lung and liver metastases Providers: Maged Bates MD Referring MD: Francisca GOMEZ DO Requesting Provider: Medicines: Monitored Anesthesia Care Complications: No immediate complications. Procedure: Pre-Anesthesia Assessment: - Prior to the procedure, a History and Physical was performed, and patient medications and allergies were reviewed. The patient is competent. The risks and benefits of the procedure and the sedation options and risks were discussed with the patient. All questions were answered and informed consent was obtained. Patient identification and proposed procedure were verified by the physician, the nurse and the hair stylist in the procedure room. Mental Status Examination: alert and oriented. Prophylactic Antibiotics: The patient does not require prophylactic antibiotics. Prior Anticoagulants: The patient has taken no previous anticoagulant or antiplatelet agents. ASA Grade Assessment: III - A patient with severe systemic disease. After reviewing the risks and benefits, the patient was deemed in satisfactory condition to undergo the procedure. The anesthesia plan was to use monitored anesthesia care (MAC). Immediately prior to administration of medications, the patient was re-assessed for adequacy to receive sedatives. The heart rate, respiratory rate, oxygen saturations, blood pressure, adequacy of pulmonary ventilation, and response to care were monitored throughout the procedure. The physical status of the patient was re-assessed after the procedure. The Colonoscope was introduced through the anus with the intention of advancing to the cecum. The scope was advanced to the sigmoid colon before the procedure was aborted. Medications were given. The colonoscopy was performed without difficulty. The patient tolerated the procedure well. The quality of the bowel preparation was good. Findings: Hemorrhoids were found on perianal exam. A fungating and infiltrative completely obstructing large mass was found at 50 cm proximal to the anus. The mass was circumferential. Biopsies were taken with a cold forceps for histology. Estimated blood loss was minimal. Impression: - Hemorrhoids found on perianal exam. - Malignant completely obstructing tumor at 50 cm proximal to the anus. Biopsied. Recommendation: - Discharge patient to home. - Resume previous diet. - Continue present medications. - Await pathology results. Procedure Code(s): --- Professional --- 21239, 52, Colonoscopy, flexible; with biopsy, single or multiple Diagnosis Code(s): --- Professional --- K64.9, Unspecified hemorrhoids C18.9, Malignant neoplasm of colon, unspecified K56.691, Other complete intestinal obstruction K62.5, Hemorrhage of anus and rectum R93.3, Abnormal findings on diagnostic imaging of other parts of digestive tract CPT copyright 2019 [employer]. All rights reserved. The codes documented in this report are preliminary and upon return to vendor review may be revised to meet current compliance requirements. Maged Bates MD Maged Bates MD 06/25/2020 2:32:26 PM Electronically signed by Maged Bates MD Number of Addenda: 0 Note Initiated On: 06/25/2020 1:55 PM Estimated Blood Loss: Estimated blood loss was minimal.
[2020-06-25] MEDS ORDERED: HEPARIN SOD (PORCINE) 5000UNITS/ML 1ML VIAL/SYRINGE As Ordered ONE (14:51)
[2020-06-25 15:00] VITALS: BP 131/69
[2020-06-25] MEDS ORDERED: SODIUM CHLORIDE 0.9% INJ 10 ML SYR IV SCH (18:00)
== END 2020-06-25 15:30 | disposition home or self-care (01) ==
LOC: M OPP 11:17
PROVIDERS: ATTEND Surgery
DX: K62.5 Hemorrhage of anus and rectum (principal); R93.3 Abnormal findings on diagnostic imaging of other parts of digestive tract; C18.9 Malignant neoplasm of colon, unspecified; K64.9 Unspecified hemorrhoids; K56.691 Other complete intestinal obstruction; I10 Essential (primary) hypertension; M19.90 Unspecified osteoarthritis, unspecified site; G47.33 Obstructive sleep apnea (adult) (pediatric); E66.01 Morbid (severe) obesity due to excess calories; N40.0 Benign prostatic hyperplasia without lower urinary tract symptoms; Z86.14 Personal history of Methicillin resistant Staphylococcus aureus infection; Z88.2 Allergy status to sulfonamides; Z79.899 Other long term (current) drug therapy

== ENCOUNTER → 2020-06-25 | Outpatient (CLI) | payer OTHER ==
[~2020-06-25] MED LIST changes: +GINKGO BILOBA PO; +[UNRECOGNIZED DRUG - REMARK] PO
[2020-06-25 11:35] LABS: BASO % 0.5 % (0.0-1.0); EOS # 0.3 10^3/uL (0.0-0.5); EOS % 3.9 % (0.0-3.0); HEMATOCRIT 31.2 % (42.0-52.0); HEMOGLOBIN 9.7 g/dl (13.5-17.5); LYMPH # 1.2 10^3/uL (1.5-5.0); LYMPH % 15.4 % (24.0-44.0); MEAN CORPUSCULAR HEMOGLOBIN 26.4 pg (27.0-33.0); MEAN CORPUSCULAR HGB CONC 31.1 g/dl (32.0-36.5); MEAN CORPUSCULAR VOLUME 84.8 fl (80.0-96.0); MONO # 0.8 10^3/uL (0.0-0.8); MONO % 10.3 % (2.0-8.0); NEUTROPHILS # 5.2 10^3/uL (1.5-8.5); NEUTROPHILS % 69.2 % (36.0-66.0); PLATELET COUNT, AUTOMATED 271 10^3/uL (150-450); RED BLOOD COUNT 3.68 10^6/uL (4.30-6.10); WHITE BLOOD COUNT 7.5 10^3/uL (4.0-10.0)
[2020-06-25 11:46] LABS: INR 1.09; PARTIAL THROMBOPLASTIN TIME 35.4 SECONDS (24.2-38.5); PROTHROMBIN TIME 14.3 SECONDS (12.5-14.3)
[2020-06-25 11:58] LABS: ALT/SGPT 62 U/L (12-78); BLOOD UREA NITROGEN 12 MG/DL (7-18); CALCIUM LEVEL 9.3 MG/DL (8.5-10.1); CARBON DIOXIDE LEVEL 26 MEQ/L (21-32); CHLORIDE LEVEL 103 MEQ/L (98-107); CREATININE FOR GFR 0.75 MG/DL (0.70-1.30); GLOMERULAR FILTRATION RATE > 60.0 (>56); GLUCOSE, FASTING 97 MG/DL (70-100); POTASSIUM SERUM 3.7 MEQ/L (3.5-5.1); SODIUM LEVEL 136 MEQ/L (136-145); TOTAL PROTEIN 7.7 GM/DL (6.4-8.2)
== END ==
LOC: M LAB 09:22
PROVIDERS: ATTEND Internal Medicine Pulmonary Disease
DX: F11.21 Opioid dependence, in remission (principal)

== ENCOUNTER → 2020-06-25 | Outpatient (CLI) | payer OTHER ==
[~2020-06-25] MED LIST changes: +ALBU8.5H INH; +HYDR-3713 PO; +LIDOCAINE 1% MDV 20ML VIAL As Ordered ONE; +LIDOCAINE 2% 100MG/5ML SDV (FOR ANES.) As Ordered ONE; +MAGICMW SSP; +ONDA8TAB10 PO; +PROC10TA4 PO; +SODIUM CHLORIDE 0.9% INJ 10 ML SYR IV PRN; +SODIUM CHLORIDE 0.9% INJ 10 ML SYR IV SCH; +TAMS1CAP17; +propofoL 200 MG/20 ML VIAL As Ordered ONE
[2020-06-25 10:37] VITALS: BP 143/64
--- NOTE | 2020-06-25 13:03 | REP ---
PROCEDURE NAME: PICC LINE INSERTION W/SITERITE CLINICAL INFORMATION: NO IV ACCESS. COMPARISON: None. PROCEDURE DESCRIPTION: The procedure was performed by SIMEON Virk, under the direct supervision of Dr. Ordonez. The risks and benefits of the procedure were explained to the patient and an informed consent was obtained both verbally and written. Directly prior to the start of the procedure a formal time-out was completed in the procedure room. The left medial brachial vein was localized using ultrasound guidance. The skin was prepped and draped in sterile fashion. One ML of 1% lidocaine 10 mg/mL was used as a local anesthetic. Using ultrasound guidance the left medial brachial vein was cannulated, and a 0.018 guidewire was inserted and advanced to the level of SVC using fluoroscopic guidance. The needle was removed and a 4.5 Zambian dilator and peel-away sheath was inserted over the guidewire. A 4.5 Zambian single lumen catheter was cut to a length of 40 cm. The dilator was removed and the catheter was inserted over the guidewire with the tip ending at the level of the SVC. The peel-away sheath was removed and the catheter was flushed with heparinized saline as per hospital protocol. The catheter was affixed to the skin and a sterile dressing was applied. The patient tolerated the procedure well and there were no immediate complications. CONCLUSION: PICC line insertion into the left medial brachial vein. 0.01 minutes of fluoroscopy time was utilized for this procedure. Some fluoroscopic images are performed with last image hold technology. These images require no additional radiation. <Electronically signed by Therese Gan > 06/25/20 1213 <Electronically signed by Kevin Ordonez > 06/25/20 2222
== END ==
LOC: M IRPRO 10:27
PROVIDERS: ATTEND Family Medicine
DX: C80.1 Malignant (primary) neoplasm, unspecified (principal)
CPT/HCPCS: 36573; C1751; J1642; J1644

== ENCOUNTER → 2020-06-27 | Outpatient (CLI) | payer OTHER ==
[~2020-06-27] MED LIST changes: +GASTROGRAFIN SOLUTION 30ML (Q9963) As Ordered ONE; +GINKGO BILOBA PO; +ISOVUE-370 76% 100ML VIAL As Ordered ONE; -LIDOCAINE 2% 100MG/5ML SDV (FOR ANES.) As Ordered ONE; -NS 1,000 ML IV ONE; +[UNRECOGNIZED DRUG - REMARK] PO; -propofoL 200 MG/20 ML VIAL As Ordered ONE
--- NOTE | 2020-06-27 17:14 | REP ---
INDICATION: LIVER TUMOR. Patient gives a history of colon carcinoma with metastasis to lung and liver and lymph nodes. COMPARISON: None. TECHNIQUE: Helical scanning is acquired and 3 mm axial images re-formatted. Coronal and sagittal MPR images are generated. The CT contrast enhancement dose is 100 mL of intravenous Isovue 370. Oral contrast was also administered. FINDINGS: Digital preliminary valver radiograph demonstrates multiple pulmonary nodules. Bowel gas pattern is normal. Axial CT images through the lung bases show multiple metastatic pulmonary nodules. There are multiple low-density liver lesions throughout the right and left lobe consistent with metastatic disease to the liver. These range in size up to 5.6 cm. The liver is mildly enlarged. The spleen is mildly enlarged as well but homogeneous. It measures up to 15 cm in greatest dimension. There is evidence of metastatic adenopathy in the right retrocrural region. There is a suspicious small lymph node in the epicardial fat in the midline. A small nodule is seen in the right adrenal gland. There is celiac axis lymphadenopathy. The largest lymph node here measures 3.4 cm by 3.5 cm. No pancreatic mass is seen. Calcified gallstones are noted in the gallbladder. There is anterior periaortic madison disease with a madison focus measuring 4.5 x 2.3 by 2.2 cm anterior to the aortic bifurcation. No renal mass lesion is seen. The kidneys enhance symmetrically. There is intrarenal nephrolithiasis in the lower pole of the left kidney. There is a small cyst in the right kidney. Dystrophic calcifications are noted in the prostate. Urinary bladder is unremarkable. No definite pelvic adenopathy is seen. There is mural thickening in a segment of sigmoid colon with pericolonic nodes. This suggests a primary site in the sigmoid colon. The largest pericolonic lymph node measures 1.6 by 0.9 cm. No abdominal wall defect is seen. Bone window settings demonstrate no focal bony destructive lesion. IMPRESSION: Fairly extensive intra-metastatic disease with numerous metastatic lesions in the liver. There is madison metastatic disease in celiac axis, periaortic, aortocaval, and pericolonic lymph node chains. There is a segment of mural thickening in the sigmoid colon which may be the primary site. Multiple pulmonary metastases are seen. Hepatosplenomegaly is noted. Intrarenal nephrolithiasis left kidney without hydronephrosis. Cholelithiasis. <Electronically signed by Kevin Ordonez > 06/27/20 [id number]
== END ==
LOC: M RAD 12:31
PROVIDERS: ATTEND Family Medicine
DX: C78.7 Secondary malignant neoplasm of liver and intrahepatic bile duct (principal); C77.8 Secondary and unspecified malignant neoplasm of lymph nodes of multiple regions; N20.0 Calculus of kidney; R16.2 Hepatomegaly with splenomegaly, not elsewhere classified; Z85.038 Personal history of other malignant neoplasm of large intestine
CPT/HCPCS: 74177; Q9963; Q9967

== ENCOUNTER → 2020-06-30 | Outpatient (CLI) | payer OTHER ==
[~2020-06-30] MED LIST changes: +ALBU8.5H INH; -GASTROGRAFIN SOLUTION 30ML (Q9963) As Ordered ONE; +HYDR-3713 PO; -ISOVUE-370 76% 100ML VIAL As Ordered ONE; +LIDOCAINE 1% MDV 20ML VIAL As Ordered ONE; +MAGICMW SSP; +ONDA8TAB10 PO; +PROC10TA4 PO; +SODIUM BICARBONATE 8.4% INJ 50MEQ 50 ML VIAL As Ordered ONE
[2020-06-30 11:40] VITALS: BP 129/59
--- NOTE | 2020-06-30 16:47 | REP ---
INDICATION: SECONDARY MALIG NEOPLASM OF LIVER AND INTRAHEPATIC BILE DUCT. COMPARISON: None. TECHNIQUE: The procedure was performed by SIMEON Virk, under the direct supervision of Dr. Goodrich. The risks and benefits of the procedure were explained to the patient and an informed consent was obtained both verbally and written. Directly prior to the start of the procedure a formal time-out was completed in the procedure room. FINDINGS: Using ultrasound guidance one of the left lobe liver masses was localized. The skin was prepped and draped in a sterile fashion. Fifteen mL of buffered lidocaine was used as a local anesthetic. Using ultrasound guidance a 19/20 gauge coaxial needle biopsy system was inserted and advanced into the left lobe of the liver. Six core biopsy specimens were obtained and sent to pathology for further analysis. The patient tolerated the procedure well and there were no immediate complications. After the appropriate amount of monitored convalescence the patient was discharged from the department. IMPRESSION: 1. Ultrasound-guided left lobe liver mass biopsy. <Electronically signed by Therese Gan > 06/30/20 1227 <Electronically signed by Jesse Goodrich > 06/30/20 2744
== END ==
LOC: M IRPRO 08:58
PROVIDERS: ATTEND Internal Medicine Pulmonary Disease
DX: C78.7 Secondary malignant neoplasm of liver and intrahepatic bile duct (principal)
CPT/HCPCS: 47000; 76942; 88307; 88341; 88342; J1642; J1644

== ENCOUNTER → 2020-06-30 | Outpatient (CLI) | payer OTHER ==
[~2020-06-30] MED LIST changes: -ALBU8.5H INH; -HYDR-3713 PO; -LIDOCAINE 1% MDV 20ML VIAL As Ordered ONE; -MAGICMW SSP; -ONDA8TAB10 PO; -PROC10TA4 PO; -SODIUM BICARBONATE 8.4% INJ 50MEQ 50 ML VIAL As Ordered ONE
[2020-06-30 13:29] VITALS: BP 141/63
--- NOTE | 2020-07-01 12:43 | REP ---
PROCEDURE NAME: PICC LINE (FLUORO GUIDE) CLINICAL INFORMATION: PICC EXCHANGE. COMPARISON: None. PROCEDURE DESCRIPTION: The procedure was performed by SIMEON Virk, under the direct supervision of Dr. Goodrich. The risks and benefits of the procedure were explained to the patient and an informed consent was obtained both verbally and written. Directly prior to the start of the procedure a formal time-out was completed in the procedure room. While the patient was already here for a liver biopsy they asked that the PICC line dressing be reapplied. It was then noticed that the PICC line had been pulled out at least 2 inches. The referring provider was informed and sent in order for us to replace the existing PICC line with a new one. The skin and existing PICC line was prepped and draped in sterile fashion. A 0.018 guidewire was inserted into the existing PICC and advanced to the level of SVC using fluoroscopic guidance. The existing PICC line was removed and a 4.5 Niuean dilator and peel-away sheath was inserted over the guidewire. A 4.5 Niuean single lumen catheter was cut to a length of 40 cm. The dilator was removed and the catheter was inserted over the guidewire with the tip ending at the level of the SVC. The peel-away sheath was removed and the catheter was flushed with heparinized saline as per hospital protocol. The catheter was sutured to the skin and a sterile dressing was applied. The patient tolerated the procedure well and there were no immediate complications. CONCLUSION: PICC line in the left medial brachial vein exchanged for a new PICC line after it had been pulled out approximately 2 in.. 0.5 minutes of fluoroscopy time was utilized for this procedure. Some fluoroscopic images are performed with last image hold technology. These images require no additional radiation. <Electronically signed by Therese Gan > 06/30/20 1456 <Electronically signed by Jesse Goodrich > 07/01/20 1241
== END ==
LOC: M RAD 12:26 → M IRPRO 12:26
PROVIDERS: ATTEND Family Medicine
DX: C22.9 Malignant neoplasm of liver, not specified as primary or secondary (principal)
CPT/HCPCS: 36585; 77001; C1751; C1769

== ENCOUNTER → 2020-07-11 | Outpatient (CLI) | payer OTHER ==
[~2020-07-11] MED LIST changes: +LIDOCAINE 1% MDV 20ML VIAL As Ordered ONE; +ONDA8TAB10 PO; +PROC10TA4 PO; +ceFAZolin 1GM VIAL (J0690 PER 500MG) As Ordered ONE
[2020-07-11 12:15] VITALS: BP 146/73
--- NOTE | 2020-07-16 13:37 | IRPON ---
IR Postoperative Note Date Of Procedure: Jul 11, 2020 Time Of Procedure: 16:00 IR Postoperative Note IR Ultrasound and fluoroscopy guided port placement. IR Ultrasound of the neck. Clinical indication: Colon cancer Physician: Dr. Sanz. Procedure: The patient was advised of the benefits, risks, and alternatives of the procedure and informed consent was obtained. A time-out was performed with verification of the patient's name, MRN, site of procedure and type of procedure to be performed. The patient was positioned in the supine position on the angiographic table. The site was prepped and draped in the usual sterile fashion. Moderate sedation was not performed as per patient request. The physician spent 45 minutes of continuous face to face time with the patient. Ultrasound of the neck reveals a patent and compressible right internal jugular vein. A motorcycle fabricator radiograph reveals increased lung markings and mediastinal widening. The neck and anterior chest wall were anesthetized with lidocaine. The right internal jugular vein was accessed using a microintroducer needle under ultrasound guidance, via a lateral approach. An 018 wire was advanced into the superior vena cava, the needle was removed and a microsheath was placed. An Amplatz wire was then passed into the inferior vena cava. An incision at the internal jugular vein access site and anterior chest wall were made using a scalpel. An incision was made at the anterior chest wall. A small pocket was created using a combination of blunt and sharp dissection. A tunneling device was then used to pass the catheter from the pocket to the neck puncture site. An 8- Thai Angio dynamics Smart power port was then positioned in the pocket. The catheter was then measured and cut. The introducer sheath was exchanged for a peel-away sheath. The catheter was passed through the peel-away sheath into the internal jugular vein and the peel-away sheath was removed. The port tip was positioned at the cavoatrial junction. The port was then accessed with a Kingsley needle. The port flushes and aspirates well. The puncture site in the neck was closed. The chest wall incision was then closed with 2-0 Vicryl and 4-0 Monocryl. Glue and Steri- Strips were applied. A sterile dressing was then applied. The patient tolerated the procedure well and was returned to the PRU in stable condition. Estimated blood loss: <5 ml. Complications: None. Conclusion: 1. Successful placement of an 8-Thai Angio dynamics Smart power port via the right internal jugular vein. The port is ready for immediate use. 2. Patient to follow up in IR clinic in 2 weeks. Thank you for this referral. CHEATN SANZ MD Jul 16, 2020 13:37
== END ==
LOC: M IRPRO 09:59
PROVIDERS: ATTEND Radiology Diagnostic Radiology
DX: C18.9 Malignant neoplasm of colon, unspecified (principal)
CPT/HCPCS: 36561; 99152; 99153; C1769; C1788; C1894; J0690; J1642; J1644

== ENCOUNTER → 2020-08-05 | Outpatient (POV) | payer OTHER ==
[~2020-08-05] VITALS: Ht 167.6 cm; Wt 141.8 kg
[~2020-08-05] MED LIST changes: +ALBU8.5H INH; +HYDR-3713 PO; -LIDOCAINE 1% MDV 20ML VIAL As Ordered ONE; +MAGICMW SSP; -ceFAZolin 1GM VIAL (J0690 PER 500MG) As Ordered ONE
[2020-08-05 11:15] VITALS: BP 156/110
--- NOTE | 2020-08-06 13:20 | IRPN ---
[facility] IR Progress Note IR Progress Note DATE: Aug 05, 2020 FOLLOW-UP: Status post port placement. Patient reports he is doing well. No fevers, chills or pain at the site. ON EXAMINATION: Port site appears to be healing well. No redness, discharge or fluctuance. IMPRESSION: Doing well status post port placement. No further follow-up scheduled unless initiated by patient and/or referring provider. Thank you for this referral Allergies Coded Allergies: Sulfa (Sulfonamide Antibiotics) (Verified Adverse Reaction, Intermediate, GI upset, 03/18/20) VS,Fishbone, I+O VS, Fishbone, I+O Vital Signs Date Time Temp Pulse Resp B/P (MAP) Pulse Ox O2 Delivery O2 Flow Rate FiO2 08/05/20 11:15 97.8 84 20 156/110 (125) 95 Room Air CHETAN MONTIEL MD Aug 06, 2020 13:20
== END ==
LOC: M TMIRPOV 11:10
PROVIDERS: ATTEND Radiology Diagnostic Radiology
DX: Z45.2 Encounter for adjustment and management of vascular access device (principal)

== ENCOUNTER → 2020-08-19 | Outpatient (CLI) | payer OTHER ==
[~2020-08-19] MED LIST changes: +TAMS1CAP17
--- NOTE | 2020-08-19 16:38 | RADONC.CN ---
Radiation Oncology Hx/Consult Radiation Oncology Consult Date of Service: Aug 19, 2020 Pt Identifier Cirilo Begum is a 59 year old male with widely metastatic colon cancer currently receiving FOLFOX chemotherapy. He is seen for consideration of palliative RT to his partially obstructing and bleeding sigmoid mass. Diagnosis/Treatment History Oncologic History [id number] noted onset of bloody BMs, and narrowing of stool caliber over time Patient had CXR for new SOB on 04/30/20 with concern for metastatic lesions 06/25/20 Colonoscopy with sigmoid mass @ 50 cm pathology showing adenocarcinoma MMR intact Subsequent CT chest on 06/02/20 showed innumerable pulmonary metastases. CT abdomen and pelvis on 06/27/20 showed obstructin mass in the sigmoid as well as abdominal adenopathy and liver metastases Liver biopsy 06/30/20 showed adenocarcinoma c/w colon primary 07/29/20 started FOLFOX Interval History Notes he has less bleeding with his current bowel regimen than before when he was taking more laxative as well as NSAIDs for pain relief. He is on narcotic pain medication now with positive effect. He has some blood streaked stool now but no patrice bleeding. He is requiring mag citrate intermittently to maintain regular BMs. His stool is narrow caliber, not pencil thin. He takes dulcolax TID. He does not usually have more than 1 BM daily. He has some intermittent cramping abdominal pain but no nausea or vomiting. He does have KOENIG persistent. He also describes mild dysphagia to dry foods, but this is not overly botherso me. Past Medical History: Former IVDU HTN LOTTIE Past Surgical History: As above Family History: Father-esophagus cancer Sister-medullary thyroid cancer Social History: Never smoker Drinks 2-3 alcoholic beverages per day Allergies / Meds Allergies: Coded Allergies: Sulfa (Sulfonamide Antibiotics) (Verified Adverse Reaction, Intermediate, GI upset, 03/18/20) Home Meds Active Scripts Hydrocodone/Acetaminophen (Hydrocodone-Acetamin 5-325 mg) 1 Each Tablet, 1 TAB PO Q6H for PAIN MDD 4, #40 TAB MDD 4 Prov:ERIKA ESPARZA MD 08/13/20 Magic Mouthwash (First-Mouthwash Blm) 1 Ea Susp, 10 ML SSP QID PRN for MUCOSITIS, #240 ML 5 Refills (Diphenhydramine/maalox/lidocaine 1:1:1) May compound if kit unavailable/not covered by insurance Prov:ERIKA ESPARZA MD 08/07/20 Albuterol Sulfate (Albuterol Sulfate Hfa) 8.5 Gm Hfa.aer.ad, 2 PUFFS INH Q4-6HP PRN for DYSPNEA, #1 INHALER 2 Refills Prov:ERIKA ESPARZA MD 08/07/20 Prochlorperazine Maleate (Prochlorperazine Maleate) 10 Mg Tablet, 10 MG PO Q8H PRN for NAUSEA OR VOMITING, #30 TAB 3 Refills Prov:ERIKA ESPARZA MD 07/18/20 Ondansetron HCl (Ondansetron HCl) 8 Mg Tablet, 8 MG PO TID for nausea/vomiting for 10 Days, #30 TAB 3 Refills Prov:ERIKA ESPARZA MD 07/18/20 Reported Medications Tamsulosin Hcl (Tamsulosin HCl) 0.4 Mg Capsule 08/15/20 Meloxicam (Meloxicam) 15 Mg Tablet, 1 TAB PO DAILY for 30 Days, #30 TAB 07/17/20 [GNP GinPluggedIn biloba ex] No Conflict Check, 60 MG PO DAILY 06/25/20 Docusate Sodium (Dok) 100 Mg Capsule, 1 CAP PO DAILYPRN PRN for CONSTIPATION 06/16/20 Multivitamin (Multivitamin) 1 Each Tablet, 1 EACH PO DAILY, TAB 06/16/20 Vitamin B Complex (Vitamin B Complex) 1 Each Tablet, 1 TAB PO DAILY, TAB 03/18/20 Ergocalciferol (Vitamin D2) (Vitamin D2) 50,000 Units Cap, 71641 UNITS PO QWEEK, CAP 03/18/20 Tramadol HCl (Tramadol HCl) 50 Mg Tablet, 50 MG PO Q4HP PRN for PAIN, TAB 03/18/20 Tamsulosin HCl (Flomax) 0.4 Mg Capsule, 0.4 MG PO DAILY, CAP 03/18/20 Metoprolol Succinate (Metoprolol Succinate) 50 Mg Tab.er.24h, 50 MG PO DAILY, TAB 03/18/20 Lisinopril (Lisinopril) 30 Mg Tablet, 30 MG PO DAILY, TAB 03/18/20 Ascorbic Acid (Vitamin C) 500 Mg Tab, 500 MG PO DAILY, TAB 03/21/17 Review of Systems Constitutional: Reports: Fatigue; Denies: Chills, Fever Eyes: Denies: Pain HEENT: Denies: Head Aches Skin: Denies: Rash Pulmonary: Reports: Dyspnea, Cough Cardiovascular: Reports: Chest Pain; Denies: Palpitations Gastrointestinal: Reports: Hematochezia; Denies: Nausea, Vomiting, Diarrhea Genitourinary: Denies: Dysuria Hematologic: Denies: Bruising Musculoskeletal: Reports: Back pain; Denies: Neck pain Neurological: Denies: Weakness, Numbness, Change in Speech Psych: Reports: Mood Normal Vital Signs Ht 66" Wt 311 lbs BMI 50 T 96.7 RR 18 BP 136/81 O2 96% Pain 3 Fatigue 2 General Exam: Positive: Alert, Cooperative, No Acute Distress Eye Exam: Positive: PERRLA, EOMI ENT EXAM: Positive: Mucous membr. moist/pink, Pharynx Normal Neck Exam: Negative: Thyromegaly, Lymphadenopathy Chest Exam: Positive: Clear to auscultation, Normal air movement Heart Exam: Positive: Rate Normal, Regular Rhythm Abdomen Exam: Positive: Soft; Negative: Tenderness, Mass Extremity Exam: Positive: Edema Skin Exam: Positive: Nl turgor and temperature; Negative: Rash Neuro Exam: Positive: Normal Gait, Normal Speech, Cranial Nerves 3-12 NL Psych Exam: Positive: Mental status NL, Mood NL, Memory Intact Diagnostic and Laboratory Diagnostic Review Radiologic images, relevant labs and pathology reports were personally reviewed and discussed with Mr. Begum. Assessment and Plan Impression Mr. Begum is a 59 year old male with a history of widely metastatic colon cancer currently receiving FOLFOX chemotherapy. He is seen for consideration of palliative RT to his partially obstructing and bleeding sigmoid mass. Stage Colon adenocarcinoma MMR intact stage [id number] IVB Performance Status ECOG 1 Plan We had an extensive discussion with Mr. Begum regarding the diagnosis at hand and available therapeutic options. I reviewed his CT scans in detail he has a radiographically evident sigmoid mass ~ 6 cm in longitudinal extent which is consistent with Dr. Bates's colonoscopy report. It obstructing and causing his difficulties in regulating his bowel movements. He was offered diversion but declined, wisely in favor of immediate chemotherapy. The mass is also likely at least partially to blame for his hematochezia, which he says has been better lately. This may be treatment effect from the chemo versus less bleeding from hemorrhoidal sources (which he was noted to have on colonoscopy). We discussed 5 fractions of palliative RT to the obstructing mass. I would recommend 25 Gy which is a tolerable dose commonly used in rectal cases. I would treat a limited field with 3D planning techniques (he lacks much intervening bowel around the mass and so should be a low risk for significant GI side effects), I will use daily CBCT for localization as the bowel can move substantially from day-to-day. His habitus overall is conducive to this approach and should make localization of the target pre-treatment relatively easy (as opposed to those who have tightly interspersed bowel which is hard to visualize). He agreed to proceed. We will work his treatment in between FOLFOX cycles and aim for the week of 08/31/20. We discussed the logistics of receiving radiation therapy in detail including the need for a 1-time planning session. This will occur next week. We reviewed the possible side effects fatigue, and increased frequency of bowel movements. After discussing the risks, benefits and alternatives to radiation therapy, Mr. Begum was amenable to pursuing radiotherapy. All questions were answered to the patient's satisfaction. We instructed the patient that if there were any questions,concerns or changes in clinical status in the interim to contact us. Recommendations Palliative RT to the obstructing sigmoid mass 25 Gy in 5 fractions 3D with daily CBCT Simulation next week Billing Statement Total time of [35] minutes was spent preparing for the visit [3], obtaining HPI [4], examining the patient [1], reviewing diagnostic tests [3], discussing management options [13], coordinating care [1], and writing this note [10]. ORLIN PACHECO MD Aug 19, 2020 16:38
== END ==
LOC: M ONCR 13:35
PROVIDERS: ATTEND General Practice
DX: C18.9 Malignant neoplasm of colon, unspecified (principal)

== ENCOUNTER → 2020-08-22 | Outpatient (CLI) | payer OTHER ==
--- NOTE | 2020-08-22 14:58 | REP ---
INDICATION: MET COLON CA. COMPARISON: Comparison is made with CT abdomen pelvis images from June 27, 2020.. TECHNIQUE/RADIOTRACER AND DOSE: 22.0 mCi of Technetium-99m MDP was injected and standard whole-body bone scanning is acquired. FINDINGS: There is arthritic uptake in the medial compartment of each knee and in the small joints of the feet bilaterally. Mild arthritic uptake is seen in the acromioclavicular joints bilaterally. There is uptake in bilateral kidneys and in the urinary bladder. There is a single focus of intensely increased uptake in the right side posterior aspect of the midthoracic spine at what appears to be T8 or T9 level. This is un fortunately just above the top of the imaging field of view on the CT study of the abdomen and pelvis. In metastatic focus here must be suspected. No other abnormal uptake is appreciated. IMPRESSION: There is a suspicious focus of increased uptake in the thoracic spine at what appears to be T8 or T9 vertebral body to the right of midline. Consider thoracic spine CT study. Osteoarthritic uptake pattern in the knees and acromioclavicular joints. No other evidence to suggest metastasis.. <Electronically signed by Kevin Ordonez > 08/22/20 [id number]
== END ==
LOC: M RAD 10:58
PROVIDERS: ATTEND Specialist
DX: C18.9 Malignant neoplasm of colon, unspecified (principal); R93.7 Abnormal findings on diagnostic imaging of other parts of musculoskeletal system; M17.0 Bilateral primary osteoarthritis of knee
CPT/HCPCS: 78306; A9503

== ENCOUNTER 2020-08-25 14:06 | Outpatient (RCR) | payer OTHER ==
[2020-09-03] MEDS ORDERED: HYDR-3713 PO (13:10)
== END 2020-08-29 ==
LOC: M ONCR 14:06
PROVIDERS: ATTEND General Practice
DX: C18.7 Malignant neoplasm of sigmoid colon (principal)

== ENCOUNTER 2020-09-12 13:30 | Outpatient (RCR) | payer OTHER ==
[2020-09-15] MEDS ORDERED: HYDR-3713 PO (14:42)
== END 2020-09-29 ==
LOC: M ONCR 13:30
PROVIDERS: ATTEND General Practice
DX: C18.7 Malignant neoplasm of sigmoid colon (principal)

== ENCOUNTER → 2020-12-10 | Outpatient (CLI) | payer OTHER ==
[~2020-12-10] MED LIST changes: +DOK1CAP4 PO; -DOK1CAP7 PO; +ERGO500029 PO; -VITA50005 PO
--- NOTE | 2020-12-10 16:03 | RADONC ---
Radiation Oncology Hx/FUP Radiation Oncology Hx/FUP Date of Service: Dec 10, 2020 Pt Identifier Cirilo BegumJr is a 60 year old male seen for a followup visit today at the department of radiation oncology for a history of widely metastatic colon cancer currently receiving FOLFOX chemotherapy. Was seen for consideration of palliative RT to his partially obstructing and bleeding sigmoid mass and completed 20 Gy in 5 fractions on 09/12/20. Diagnosis/Treatment History Oncologic History [id number] noted onset of bloody BMs, and narrowing of stool caliber over time Patient had CXR for new SOB on 04/30/20 with concern for metastatic lesions 06/25/20 Colonoscopy with sigmoid mass @ 50 cm pathology showing adenocarcinoma MMR intact Subsequent CT chest on 06/02/20 showed innumerable pulmonary metastases. CT abdomen and pelvis on 06/27/20 showed obstructin mass in the sigmoid as well as abdominal adenopathy and liver metastases Liver biopsy 06/30/20 showed adenocarcinoma c/w colon primary 07/29/20- started FOLFOX 09/08/20-09/12/20 20 Gy in 5 fractions to an obstructing and bleeding sigmoid mass Item Value Date Time Carcinoembryonic Antigen 1464.0 NG/ML H 07/17/20 1541 Carcinoembryonic Antigen 1171.5 NG/ML H 08/12/20 1103 Carcinoembryonic Antigen 248.6 NG/ML H 09/09/20 1037 Carcinoembryonic Antigen 90.0 NG/ML H 09/30/20 1419 Interval History [place] started his next cycle of chemotherapy today, he thinks this cycle 7. He has had a dose reduction due to thrombocytopenia. Otherwise he tolerates the chemotherapy reasonably well. Abdominal pain is well controlled at present. He is having regular bowel movements, much broader caliber than prior to radiation treatment. He has no further rectal bleeding. His only bowel complaint is that he had a bout of diarrhea last month, which was self limited, and that he occasionally has to defecate in the middle of the night with some urgency. He is using dulcolax as needed, as well as imodium when he runs loose. He has stable q1h urinary frequency which has not changed since prior to diagnosis. He is on disability now. Overall he is satisfied with the treatment and how he is tolerating things. Current Therapy FOLFOX (Dr. Corbett) Stage Colon adenocarcinoma stage IV Social History: Never smoker Drinks 2-3 alcoholic beverages per day Allergies / Meds Allergies: Coded Allergies: Sulfa (Sulfonamide Antibiotics) (Verified Adverse Reaction, Intermediate, GI upset, 03/18/20) Home Meds Active Scripts Hydrocodone/Acetaminophen (Hydrocodone-Acetamin 5-325 mg) 1 Each Tablet, 1 TAB PO Q6H for PAIN MDD 4, #40 TAB MDD 4 Prov:ERIKA CORBETT MD 09/15/20 Magic Mouthwash (First-Mouthwash Blm) 1 Ea Susp, 10 ML SSP QID PRN for MUCOSITIS, #240 ML 5 Refills (Diphenhydramine/maalox/lidocaine 1:1:1) May compound if kit unavailable/not covered by insurance Prov:ERIKA CORBETT MD 08/07/20 Albuterol Sulfate (Albuterol Sulfate Hfa) 8.5 Gm Hfa.aer.ad, 2 PUFFS INH Q4-6HP PRN for DYSPNEA, #1 INHALER 2 Refills Prov:ERIKA CORBETT MD 08/07/20 Prochlorperazine Maleate (Prochlorperazine Maleate) 10 Mg Tablet, 10 MG PO Q8H PRN for NAUSEA OR VOMITING, #30 TAB 3 Refills Prov:ERIKA CORBETT MD 07/18/20 Ondansetron HCl (Ondansetron HCl) 8 Mg Tablet, 8 MG PO TID for nausea/vomiting for 10 Days, #30 TAB 3 Refills Prov:ERIKA CORBETT MD 07/18/20 Reported Medications Tamsulosin Hcl (Tamsulosin HCl) 0.4 Mg Capsule 08/15/20 Meloxicam (Meloxicam) 15 Mg Tablet, 1 TAB PO DAILY for 30 Days, #30 TAB 07/17/20 [GNP Ginko biloba ex] No Conflict Check, 60 MG PO DAILY 06/25/20 Docusate Sodium (Dok) 100 Mg Capsule, 1 CAP PO DAILYPRN PRN for CONSTIPATION 06/16/20 Multivitamin (Multivitamin) 1 Each Tablet, 1 EACH PO DAILY, TAB 06/16/20 Vitamin B Complex (Vitamin B Complex) 1 Each Tablet, 1 TAB PO DAILY, TAB 03/18/20 Ergocalciferol (Vitamin D2) (Vitamin D2) 50,000 Units Cap, 32923 UNITS PO QWEEK, CAP 03/18/20 Tramadol HCl (Tramadol HCl) 50 Mg Tablet, 50 MG PO Q4HP PRN for PAIN, TAB 03/18/20 Tamsulosin HCl (Flomax) 0.4 Mg Capsule, 0.4 MG PO DAILY, CAP 03/18/20 Metoprolol Succinate (Metoprolol Succinate) 50 Mg Tab.er.24h, 50 MG PO DAILY, TAB 03/18/20 Lisinopril (Lisinopril) 30 Mg Tablet, 30 MG PO DAILY, TAB 03/18/20 Ascorbic Acid (Vitamin C) 500 Mg Tab, 500 MG PO DAILY, TAB 03/21/17 Review of Systems Review of Systems Constitutional: Reports: Fatigue; Denies: Chills, Fever, Weight Loss Eyes: Denies: Pain HEENT: Denies: Head Aches Skin: Denies: Rash Pulmonary: Reports: Dyspnea; Denies: Cough Cardiovascular: Denies: Chest Pain Gastrointestinal: Reports: Abdominal Pain; Denies: Hematochezia Genitourinary: Reports: Frequency; Denies: Incontinence Hematologic: Denies: Bleeding Excessively Musculoskeletal: Denies: Neck pain Neurological: Denies: Weakness, Numbness Psych: Reports: Mood Normal Physical Examination Vital Signs Wt 338 T 96.2 P 75 RR 20 BP 167/80 O2 98% Pain 0 Fatigue 0 General Exam: Alert, Cooperative, No Acute Distress Eye Exam: PERRLA, EOMI ENT EXAM: Atraumatic Neck Exam: Supple Chest Exam: Clear to auscultation Heart Exam: Rate Normal Abdomen Exam: Soft Extremity Exam: Negative: Edema Skin Exam: Nl turgor and temperature Neuro Exam: Normal Gait, Normal Speech, Cranial Nerves 3-12 NL Psych Exam: Mental status NL Diagnostic and Laboratory Diagnostic Review Radiologic images, relevant labs and pathology reports were personally reviewed and discussed with Mr. Begum. Assessment and Plan Impression Assessment Mr. Begum is a 60 year old male with a history of widely metastatic colon cancer currently receiving FOLFOX chemotherapy. Was seen for consideration of palliative RT to his partially obstructing and bleeding sigmoid mass and completed 20 Gy in 5 fractions on 09/12/20. Based on his bowel habit normalization I think he has had a good palliative response to chemotherapy and the palliative RT. Discussed that the chemotherapy has evidence of ongoing positive effect given reversal of his prior weight loss and the downtrending CEA. As he has no acute symptoms of concern I think he can follow up with me as needed for now. He is continuing FOLFOX with Dr. Corbett with plan for 12 cycles. He can be referred back to me if needed. [place] agreed to the plan. Performance Status ECOG 1 Plan Follow up PRN Mr. Begum was encouraged to call with questions or concerns in the interim period. Billing Statement Total time of [21] minutes was spent preparing for the visit [3], obtaining HPI [4], examining the patient [2], reviewing diagnostic tests [2], discussing management options [3], coordinating care [0], and writing this note [7]. ORLIN PACHECO MD Dec 10, 2020 16:02
== END ==
LOC: M ONCR 14:53
PROVIDERS: ATTEND General Practice
DX: C18.7 Malignant neoplasm of sigmoid colon (principal); D69.6 Thrombocytopenia, unspecified; Z88.2 Allergy status to sulfonamides; Z79.899 Other long term (current) drug therapy; Z92.21 Personal history of antineoplastic chemotherapy; Z92.3 Personal history of irradiation

== ENCOUNTER → 2021-02-06 | Outpatient (CLI) | payer MEDICAID, OTHER, SELFPAY ==
[~2021-02-06] MED LIST changes: +GINK60CA8 PO
--- NOTE | 2021-02-06 13:48 | REP ---
INDICATION: COLON CA W/ METS RT RIB PAIN ? METS. COMPARISON: Comparison radionuclide bone scan August 22, 2020. TECHNIQUE/RADIOTRACER AND DOSE: 22.0 mCi of Technetium-99m MDP was injected and standard whole-body bone scanning is acquired. FINDINGS: There is again noted a focus of intensely increased uptake to the right of midline in the lower thoracic spine at what appears to be T8. This is essentially unchanged from the August 22, 2020 study. No new suspicious skeletal lesion is seen. Arthritic uptake is again noted in the medial aspect of each knee and in bilateral acromioclavicular joints. There is uptake in bilateral kidneys and in the urinary bladder. IMPRESSION: Findings unchanged from August 22, 2020. Focus of intensely increased uptake in the midthoracic spine persists unchanged. No new abnormality. <Electronically signed by Kevin Ordonez > 02/06/21 [id number]
== END ==
LOC: M RAD 10:21
PROVIDERS: ATTEND Specialist
DX: C18.9 Malignant neoplasm of colon, unspecified (principal)
CPT/HCPCS: 78306; A9503

== ENCOUNTER → 2021-03-02 | Outpatient (CLI) | payer OTHER ==
[~2021-03-02] MED LIST changes: +GASTROGRAFIN SOLUTION 30ML (Q9963) As Ordered ONE; +ISOVUE-370 76% 100ML VIAL As Ordered ONE
--- NOTE | 2021-03-03 09:24 | REP ---
INDICATION: COLORECTAL CA. COMPARISON: 06/02/2020 TECHNIQUE: Bolus 100 mL Isovue 370 scanning through the chest with coronal and sagittal reconstructions. FINDINGS: There is marked improvement in the pattern of the metastatic nodules throughout the lungs. For example in the deep sulcus left lower lobe posterior basal segment is an 18 mm irregular shaped lesion which on the previous study measured 38 mm. The left upper lobe peripherally on image 19 is a 21 mm nodule that previously measured 40 mm. Similar changes in both lungs and many smaller nodules have disappeared. I do not see pleural effusion. There are no definite new nodules left hilar and prevascular space adenopathy has significantly improved there are small AP window precarinal and right hilar nodes present. There are no pathologic sized axillary or supraclavicular nodes. There is an indwelling right jugular port cath with tip at the SVC junction with the right atrium. There is no pericardial thickening or effusion. There are atherosclerotic calcifications aorta without aneurysm or dissection. Bone windows show the sternum, manubrium and medial clavicles, visualized portions of scapula, humeral heads and ribs to be without acute finding. There are stable old posttraumatic changes with some healed left lateral rib fractures. Diffuse thoracic spondylosis with osteophytes and syndesmophytes throughout the thoracic spine unchanged. No compression fracture or destructive lesions. The upper abdomen shows spleen enlarged and the liver with multiple lesions somewhat improved. See full report on the CT abdomen this date. IMPRESSION: 1. The bilateral of metastatic CT nodules small masses throughout the lung vanegas at all show significant decrease in size with many of the smaller lesions resolved since the previous study of 06/02/2020. Please see details above. No pleural effusion. No new lesions. 2. Improvement in the mediastinal adenopathy. 3. No acute bony finding. <Electronically signed by Canelo Chowdhury > 03/03/21 [id number]
--- NOTE | 2021-03-03 09:50 | REP ---
INDICATION: COLORECTAL CA. COMPARISON: 06/27/2020 TECHNIQUE: Oral Gastrografin mixture 10 mL in 290 mL of flavored water for 2 doses per our bowel contrast protocol followed by 100 mL Isovue 370 scanning through the abdomen and pelvis and with both coronal and sagittal reconstructions. Delayed images were obtained through the liver. FINDINGS: CT abdomen: Multiple lung nodules in the bases have improved since the previous study. See CT chest report for detail. There is no hiatal hernia. Multiple metastatic lesions in the liver are noted most of which are somewhat smaller compared to the previous study. Of the maximum vertical diameter of the liver on the right is 21 cm, previously 23 cm. The largest lesion is now about 3.1 cm, previously 5.6 cm. All of the other lesions show similar a decreases in size. No new lesions are identified. There is splenomegaly with an index of 2159 (upper normal 480) and maximum diameter of 20.2 cm. Spleen has increased in size but is without any focal lesion. Gallbladder shows some dependent calcified stones unchanged. Pancreas is unremarkable. Periaortic adenopathy with the madison lesion 2.9 x 1.7 by 2.5 cm, previously 4.5 x 2.3 x 2.2 cm. Celiac axis node measures 2.5 x 1.9 cm, previously 3.5 x 3.4 cm. Small epicardial fat node is seen decreased in size as well. Right adrenal gland shows a small nodule unchanged. Left adrenal gland unremarkable. Pancreas unchanged. Kidneys were symmetric and show a the nonobstructing punctate calcifications lower pole on the left there is no hydronephrosis hydroureter or ureteral stone on either side. Small bowel loops are unremarkable. Abdominal portion of the colon is without acute abnormality. The small bowel loops are without dilatation or air-fluid levels. Some diastasis of the rectus muscles in the periumbilical region. This is unchanged and without a bowel obstruction. Lung window review of all CT slices shows no perforation or free air. There is thoracic and lumbar spondylosis and vacuum phenomena at all of the lumbar disc levels without destructive lesion or compression fractures. CT pelvis: The mural thickening seen in the segment of sigmoid colon midline on the previous CT is no longer evident. There are some fat replaced iliac nodes adjacent to the external iliac chain on each side. These are similar to the previous study. The pericolonic nodes in the previous study are all smaller or resolved. No ventral or inguinal hernia. No pathologic sized inguinal adenopathy. Bladder shows only partial filling without stone, mass or wall thickening. Pelvic phleboliths are seen but no distal ureteral dilatation or stone. Appendix is seen and normal. Distal sigmoid and rectum are unremarkable. The bony pelvis shows sacrum, SI joints pelvis and hips without acute finding. No destructive bone lesion identified IMPRESSION: 1. The extensive intrahepatic metastatic disease is again noted but all the lesions are somewhat and smaller degree of hepatomegaly is noted. No ascites. 2. Splenomegaly is increased compared to the previous study with maximum splenic diameter 20.2 cm, previously 15.5 cm. No discrete lesion. 3. Periaortic, celiac axis and pericolonic adenopathy is again seen and all decreased in size. A small epicardial space node is again seen, also decreased. 4. Segment of mural thickening of the sigmoid colon on the previous exam is not visualized on today's study. No definite sigmoid mass. No obstruction. No perforation or free air. 5. Stable cholelithiasis. No biliary dilatation. No bony metastatic disease. <Electronically signed by Canelo Chowdhury > 03/03/21 0905
== END ==
LOC: M RAD 15:54
PROVIDERS: ATTEND Internal Medicine Medical Oncology
DX: C18.9 Malignant neoplasm of colon, unspecified (principal)
CPT/HCPCS: 71260; 74177; J1642; Q9963; Q9967

== ENCOUNTER → 2021-05-14 | Outpatient (REF) | payer OTHER ==
[~2021-05-14] MED LIST changes: -GASTROGRAFIN SOLUTION 30ML (Q9963) As Ordered ONE; -ISOVUE-370 76% 100ML VIAL As Ordered ONE; +ONDA-84 PO; -ONDA8TAB10 PO; -PROC10TA4 PO; +PROC10TA5 PO
== END ==
LOC: M SFHCADAM 15:55
PROVIDERS: ATTEND Family Medicine
DX: R05.9 Cough, unspecified (principal)

== ENCOUNTER → 2021-06-12 | Outpatient (CLI) | payer MEDICAID, MEDICARE, OTHER ==
[~2021-06-12] MED LIST changes: +GASTROGRAFIN SOLUTION 30ML (Q9963) As Ordered ONE; +ISOVUE-370 76% 100ML VIAL As Ordered ONE; +METF500T13
== END ==
LOC: M RAD 13:55
PROVIDERS: ATTEND Specialist
DX: C18.9 Malignant neoplasm of colon, unspecified (principal)
CPT/HCPCS: 71260; 74177; J1642; Q9963; Q9967

== ENCOUNTER → 2021-06-29 | Outpatient (REF) | payer OTHER ==
[~2021-06-29] MED LIST changes: -GASTROGRAFIN SOLUTION 30ML (Q9963) As Ordered ONE; -ISOVUE-370 76% 100ML VIAL As Ordered ONE
[2021-06-29 16:14] LABS: APPEARANCE, URINE CLOUDY (CLEAR); BACTERIA, URINE AUTO NEGATIVE (NEGATIVE); BILIRUBIN, URINE AUTO NEGATIVE (NEGATIVE); BLOOD, URINE BLOOD NEGATIVE (NEGATIVE); COLOR, URINE AMBER (YELLOW); GLUCOSE, URINE (UA) AUTO 3+ mg/dL (NEGATIVE); KETONE, URINE AUTO TRACE mg/dL (NEGATIVE); LEUKOCYTE ESTERASE, URINE AUTO NEGATIVE (NEGATIVE); NITRITE, URINE AUTO NEGATIVE (NEGATIVE); PROTEIN, URINE AUTO NEGATIVE (NEGATIVE); RBC, URINE AUTO 0 /HPF (0-3); SQUAMOUS EPITHELIAL CELL UR AU 1 /HPF (0-6); WBC, URINE AUTO 1 /HPF (0-3)
== END ==
LOC: M SFHCADAM 15:50
PROVIDERS: ATTEND Family Medicine
DX: R82.90 Unspecified abnormal findings in urine (principal)

== ENCOUNTER → 2021-07-20 | Outpatient (REF) | payer OTHER ==
[~2021-07-20] MED LIST changes: -METF500T13; +METF500T13 PO
[2021-07-21 17:36] LABS: MALB URINE SIEMENS 32.1 MG/L; MAU/CREAT RATIO 12.6 MCG/MG (0.0-30.0)
== END ==
LOC: M LAB REF 16:56
PROVIDERS: ATTEND Nurse Practitioner Family
DX: E11.65 Type 2 diabetes mellitus with hyperglycemia (principal)

== ENCOUNTER 2021-09-05 00:09 | Inpatient (IN) | payer MEDICAID, OTHER ==
[~2021-09-05] VITALS: Ht 170.2 cm; Wt 143.7 kg
[~2021-09-05 00:09] MED LIST changes: +INSU100V12 INJ
[2021-09-05 01:32] VITALS: BP 127/86
[2021-09-05] MEDS ORDERED: GLUCAGON INJ 1MG VIAL SC PRN (01:35)
[2021-09-05] MEDS ORDERED: DEXTROSE 50% 50 ML SYRINGE IV PRN (01:35)
[2021-09-05] MEDS ORDERED: GLUCOSE 4GM CHEW TABLET PO PRN (01:35)
[2021-09-05] MEDS ORDERED: ACETAMINOPHEN TAB 650MG DOSE (2X325MG) PO PRN (01:35)
[2021-09-05] MEDS ORDERED: traMADol 50 MG TAB PO PRN (02:50)
[2021-09-05] MEDS ORDERED: PREPARATION H SUPP (HEMORRHOID) PR PRN (02:50)
[2021-09-05] MEDS ORDERED: LIDOCAINE 5% (LIDODERM) PATCH TD SCH (02:50)
[2021-09-05] MEDS ORDERED: SODIUM CHLORIDE 0.9% INJ 10 ML SYR IV PRN (03:25)
[2021-09-05] MEDS ORDERED: NS 1,000 ML IV SCH (03:35)
[2021-09-05] MEDS: NORCO, ANEXSIA 5/325MG TABLET (HYDROcodone/ACETAMINOPHEN) PO PRN ×3 (03:54→21:15)
[2021-09-05] MEDS: SODIUM CHLORIDE 0.9% INJ 10 ML SYR IV PRN ×3 (04:02→17:41)
[2021-09-05] MEDS ORDERED: HYDR-3719 PO (05:10)
[2021-09-05] MEDS ORDERED: METF10004 PO (05:10)
[2021-09-05] MEDS ORDERED: MYRB50TA PO (05:10)
[2021-09-05] MEDS ORDERED: PROAAER10 INH (05:10)
[2021-09-05] MEDS ORDERED: DOCU100C16 PO (05:10)
[2021-09-05] MEDS ORDERED: HOME MED LIST COMPLETE! XX SCH (05:15)
[2021-09-05] MEDS ORDERED: DOCUSATE SODIUM 100MG CAPSULE PO PRN (05:20)
[2021-09-05] MEDS ORDERED: PROCHLORPERAZINE 5MG TAB PO PRN (05:20)
[2021-09-05] MEDS ORDERED: ALBUTEROL 90 MCG/ACT 8GM HFA INHALER INH PRN (05:20)
[2021-09-05 05:41] LABS: BASO # 0.1 10^3/uL (0.0-0.2); BASO % 0.9 % (0.0-1.0); EOS # 0.2 10^3/uL (0.0-0.5); EOS % 2.3 % (0.0-3.0); HEMOGLOBIN 13.5 g/dl (13.5-17.5); LYMPH # 1.4 10^3/uL (1.5-5.0); LYMPH % 13.2 % (24.0-44.0); MEAN CORPUSCULAR HEMOGLOBIN 33.2 pg (27.0-33.0); MEAN CORPUSCULAR HGB CONC 34.6 g/dl (32.0-36.5); MEAN CORPUSCULAR VOLUME 95.8 fl (80.0-96.0); NEUTROPHILS # 7.4 10^3/uL (1.5-8.5); NEUTROPHILS % 71.7 % (36.0-66.0); PLATELET COUNT, AUTOMATED 194 10^3/uL (150-450); RED BLOOD COUNT 4.07 10^6/uL (4.30-6.10); WHITE BLOOD COUNT 10.4 10^3/uL (4.0-10.0)
[2021-09-05] MEDS: SODIUM CHLORIDE 0.9% INJ 10 ML SYR IV SCH (05:43)
[2021-09-05 05:54] LABS: INR 1.01; PROTHROMBIN TIME 13.7 SECONDS (12.7-14.5)
[2021-09-05 05:55] LABS: PARTIAL THROMBOPLASTIN TIME 34.8 SECONDS (25.9-37.0)
[2021-09-05 06:00] VITALS: BP 128/81
[2021-09-05 06:04] LABS: HEMOGLOBIN A1c 5.7 %
[2021-09-05 06:11] LABS: ALBUMIN 3.7 GM/DL (3.2-5.2); ALT/SGPT 92 U/L (12-78); BILIRUBIN,TOTAL 1.5 MG/DL (0.2-1.0); BLOOD UREA NITROGEN 37 MG/DL (7-18); CALCIUM LEVEL 9.1 MG/DL (8.8-10.2); CARBON DIOXIDE LEVEL 25 MEQ/L (21-32); CHLORIDE LEVEL 105 MEQ/L (98-107); CREATININE FOR GFR 1.14 MG/DL (0.70-1.30); GLOMERULAR FILTRATION RATE > 60.0 (>49); GLUCOSE, FASTING 140 MG/DL (70-100); MAGNESIUM LEVEL 2.8 MG/DL (1.8-2.4); POTASSIUM SERUM 4.2 MEQ/L (3.5-5.1); SODIUM LEVEL 137 MEQ/L (136-145)
[2021-09-05] MEDS: MORPHINE 2 MG/ML 1ML VIAL IV PRN ×3 (06:32→17:40)
[2021-09-05] MEDS: HumaLOG INSULIN (NovoLOG) PER UNIT SC SCH ×4 (07:30→21:00)
[2021-09-05] MEDS: cefTRIAXone SOD 1 GM in D5W MINI-BAG PLUS 50 ML IV SCH (08:40)
[2021-09-05] MEDS: LACTOBACILLUS ACIDOPHILUS CAP (BACID) PO SCH (08:42)
[2021-09-05] MEDS: FLUTICASONE PROP 0.05% NASAL SPRAY 16 GM (FLONASE) NARES SCH ×2 (08:42→21:16)
[2021-09-05] MEDS: ASCORBIC ACID 500 MG TAB PO SCH (08:42)
[2021-09-05] MEDS: THIAMINE 100 MG TAB PO SCH (08:43)
[2021-09-05] MEDS: FOLIC ACID 1 MG TAB PO SCH (08:43)
[2021-09-05] MEDS: METOPROLOL SUCC (TopROL XL) 50MG **XL** TAB PO SCH (08:43)
[2021-09-05] MEDS: MULTIVITAMINS/MINERALS THERAP 1 TAB PO SCH (08:43)
[2021-09-05] MEDS: ENOXAPARIN 40MG/0.4ML SYRINGE (J1650 PER 10MG) SC SCH (08:45)
[2021-09-05] MEDS: LEVEMIR (INSULIN DETEMIR) 1 UNITS/0.01ML SC SCH ×2 (08:45→21:18)
[2021-09-05] MEDS: LIDOCAINE 5% (LIDODERM) PATCH TD SCH (08:45)
[2021-09-05] MEDS ORDERED: **NOTE PATIENT COMMENT** MISC XX SCH (09:00)
[2021-09-05] MEDS ORDERED: SODIUM CHLORIDE 0.9% INJ 10 ML SYR IV SCH (09:00)
[2021-09-05 14:00] VITALS: BP 147/75
[2021-09-05] MEDS ORDERED: PROHANCE 279.3MG/ML 5ML VIAL As Ordered ONE (18:10)
[2021-09-05] MEDS ORDERED: PROHANCE 279.3MG/ML 15ML VIAL As Ordered ONE (18:10)
[2021-09-05] MEDS: **NOTE PATIENT COMMENT** MISC XX SCH (21:00)
[2021-09-05 22:00] VITALS: BP 132/65
[2021-09-06] MEDS: SODIUM CHLORIDE 0.9% INJ 10 ML SYR IV PRN ×3 (02:02→16:41)
[2021-09-06] MEDS: MORPHINE 2 MG/ML 1ML VIAL IV PRN ×2 (02:05→06:09)
[2021-09-06] MEDS: NORCO, ANEXSIA 5/325MG TABLET (HYDROcodone/ACETAMINOPHEN) PO PRN (04:05)
[2021-09-06 06:00] VITALS: BP 152/82
[2021-09-06] MEDS: SODIUM CHLORIDE 0.9% INJ 10 ML SYR IV SCH ×2 (06:00→06:06)
[2021-09-06 06:47] LABS: BASO % 0.4 % (0.0-1.0); EOS % 0.1 % (0.0-3.0); HEMATOCRIT 38.1 % (42.0-52.0); HEMOGLOBIN 13.2 g/dl (13.5-17.5); LYMPH # 0.9 10^3/uL (1.5-5.0); LYMPH % 9.9 % (24.0-44.0); MEAN CORPUSCULAR HEMOGLOBIN 33.4 pg (27.0-33.0); MEAN CORPUSCULAR HGB CONC 34.6 g/dl (32.0-36.5); MEAN CORPUSCULAR VOLUME 96.5 fl (80.0-96.0); MONO # 0.3 10^3/uL (0.0-0.8); MONO % 3.6 % (2.0-8.0); NEUTROPHILS # 7.8 10^3/uL (1.5-8.5); NEUTROPHILS % 84.4 % (36.0-66.0); PLATELET COUNT, AUTOMATED 199 10^3/uL (150-450); RED BLOOD COUNT 3.95 10^6/uL (4.30-6.10); WHITE BLOOD COUNT 9.2 10^3/uL (4.0-10.0)
[2021-09-06 07:18] LABS: BLOOD UREA NITROGEN 28 MG/DL (7-18); CARBON DIOXIDE LEVEL 22 MEQ/L (21-32); CHLORIDE LEVEL 107 MEQ/L (98-107); GLOMERULAR FILTRATION RATE > 60.0 (>49); GLUCOSE, FASTING 161 MG/DL (70-100); MAGNESIUM LEVEL 2.7 MG/DL (1.8-2.4); POTASSIUM SERUM 4.7 MEQ/L (3.5-5.1); SODIUM LEVEL 136 MEQ/L (136-145)
[2021-09-06] MEDS: ENOXAPARIN 40MG/0.4ML SYRINGE (J1650 PER 10MG) SC SCH (08:33)
[2021-09-06] MEDS: cefTRIAXone SOD 1 GM in D5W MINI-BAG PLUS 50 ML IV SCH (08:34)
[2021-09-06] MEDS: ASCORBIC ACID 500 MG TAB PO SCH (08:37)
[2021-09-06] MEDS: LACTOBACILLUS ACIDOPHILUS CAP (BACID) PO SCH (08:37)
[2021-09-06] MEDS: HumaLOG INSULIN (NovoLOG) PER UNIT SC SCH ×4 (08:37→20:08)
[2021-09-06] MEDS: MULTIVITAMINS/MINERALS THERAP 1 TAB PO SCH (08:37)
[2021-09-06] MEDS: FOLIC ACID 1 MG TAB PO SCH (08:38)
[2021-09-06] MEDS: THIAMINE 100 MG TAB PO SCH (08:38)
[2021-09-06] MEDS: METOPROLOL SUCC (TopROL XL) 50MG **XL** TAB PO SCH (08:38)
[2021-09-06] MEDS: FLUTICASONE PROP 0.05% NASAL SPRAY 16 GM (FLONASE) NARES SCH ×2 (08:44→20:14)
[2021-09-06] MEDS: LIDOCAINE 5% (LIDODERM) PATCH TD SCH (08:44)
[2021-09-06] MEDS: DOCUSATE SODIUM 100MG CAPSULE PO SCH ×2 (11:15→20:12)
[2021-09-06] MEDS: LEVEMIR (INSULIN DETEMIR) 1 UNITS/0.01ML SC SCH ×2 (11:16→20:28)
[2021-09-06] MEDS: MELOXICAM (MOBIC) 7.5 MG TAB PO SCH (11:16)
[2021-09-06] MEDS: ANEXSIA, NORCO 7.5MG/325MG TABLET(HYDROCODONE/APAP) PO PRN ×2 (12:00→17:44)
[2021-09-06 14:00] VITALS: BP 142/75
[2021-09-06] MEDS: MORPHINE 4 MG/ML 1ML VIAL/SYRINGE IV PRN (16:36)
[2021-09-06] MEDS: SENNA 8.6 MG TAB (SENOKOT) PO SCH (20:12)
[2021-09-06 20:27] VITALS: BP 122/64
[2021-09-06] MEDS ORDERED: LEVEMIR (INSULIN DETEMIR) 1 UNITS/0.01ML SC ONE (21:00)
[2021-09-06] MEDS: **NOTE PATIENT COMMENT** MISC XX SCH (21:00)
[2021-09-07] MEDS: MORPHINE 4 MG/ML 1ML VIAL/SYRINGE IV PRN (03:47)
[2021-09-07] MEDS: SODIUM CHLORIDE 0.9% INJ 10 ML SYR IV SCH (05:56)
[2021-09-07 06:00] VITALS: BP 151/76
[2021-09-07 06:10] LABS: BASO % 0.3 % (0.0-1.0); EOS % 0.2 % (0.0-3.0); HEMATOCRIT 38.8 % (42.0-52.0); HEMOGLOBIN 13.4 g/dl (13.5-17.5); LYMPH # 1.4 10^3/uL (1.5-5.0); MEAN CORPUSCULAR HEMOGLOBIN 33.1 pg (27.0-33.0); MEAN CORPUSCULAR HGB CONC 34.5 g/dl (32.0-36.5); MEAN CORPUSCULAR VOLUME 95.8 fl (80.0-96.0); MONO # 0.9 10^3/uL (0.0-0.8); MONO % 7.9 % (2.0-8.0); NEUTROPHILS # 8.8 10^3/uL (1.5-8.5); NEUTROPHILS % 78.2 % (36.0-66.0); PLATELET COUNT, AUTOMATED 219 10^3/uL (150-450); RED BLOOD COUNT 4.05 10^6/uL (4.30-6.10); WHITE BLOOD COUNT 11.3 10^3/uL (4.0-10.0)
[2021-09-07 07:00] LABS: BLOOD UREA NITROGEN 26 MG/DL (7-18); CALCIUM LEVEL 9.5 MG/DL (8.8-10.2); CARBON DIOXIDE LEVEL 21 MEQ/L (21-32); CHLORIDE LEVEL 110 MEQ/L (98-107); CREATININE FOR GFR 0.94 MG/DL (0.70-1.30); GLOMERULAR FILTRATION RATE > 60.0 (>49); GLUCOSE, FASTING 126 MG/DL (70-100); MAGNESIUM LEVEL 2.6 MG/DL (1.8-2.4); POTASSIUM SERUM 4.1 MEQ/L (3.5-5.1); SODIUM LEVEL 139 MEQ/L (136-145)
[2021-09-07] MEDS: HumaLOG INSULIN (NovoLOG) PER UNIT SC SCH ×4 (07:30→19:59)
[2021-09-07] MEDS: ANEXSIA, NORCO 7.5MG/325MG TABLET(HYDROCODONE/APAP) PO PRN ×3 (07:44→23:09)
[2021-09-07] MEDS: cefTRIAXone SOD 1 GM in D5W MINI-BAG PLUS 50 ML IV SCH (08:34)
[2021-09-07] MEDS: ENOXAPARIN 40MG/0.4ML SYRINGE (J1650 PER 10MG) SC SCH (08:35)
[2021-09-07] MEDS: MULTIVITAMINS/MINERALS THERAP 1 TAB PO SCH (08:36)
[2021-09-07] MEDS: DOCUSATE SODIUM 100MG CAPSULE PO SCH ×2 (08:36→20:26)
[2021-09-07] MEDS: LACTOBACILLUS ACIDOPHILUS CAP (BACID) PO SCH (08:36)
[2021-09-07] MEDS: FOLIC ACID 1 MG TAB PO SCH (08:37)
[2021-09-07] MEDS: THIAMINE 100 MG TAB PO SCH (08:37)
[2021-09-07] MEDS: ASCORBIC ACID 500 MG TAB PO SCH (08:37)
[2021-09-07] MEDS: MELOXICAM (MOBIC) 7.5 MG TAB PO SCH (08:37)
[2021-09-07] MEDS: METOPROLOL SUCC (TopROL XL) 50MG **XL** TAB PO SCH (08:39)
[2021-09-07] MEDS: FLUTICASONE PROP 0.05% NASAL SPRAY 16 GM (FLONASE) NARES SCH ×2 (08:39→20:26)
[2021-09-07] MEDS: LEVEMIR (INSULIN DETEMIR) 1 UNITS/0.01ML SC SCH ×2 (08:41→20:27)
[2021-09-07] MEDS: LIDOCAINE 5% (LIDODERM) PATCH TD SCH (08:41)
[2021-09-07] MEDS ORDERED: MIRALAX *UNIT DOSE* 17GM PACKET PO PRN (09:25)
[2021-09-07] MEDS: SODIUM CHLORIDE 0.9% INJ 10 ML SYR IV PRN (10:10)
[2021-09-07 14:00] VITALS: BP 134/63
[2021-09-07] MEDS: CALCIUM CARBONATE 500 MG CHEW U/D PO PRN (15:41)
[2021-09-07] MEDS: SENNA 8.6 MG TAB (SENOKOT) PO SCH (20:27)
[2021-09-07] MEDS: **NOTE PATIENT COMMENT** MISC XX SCH (20:29)
[2021-09-07 22:00] VITALS: BP 131/65
[2021-09-08] MEDS: SODIUM CHLORIDE 0.9% INJ 10 ML SYR IV SCH (05:04)
[2021-09-08] MEDS: ANEXSIA, NORCO 7.5MG/325MG TABLET(HYDROCODONE/APAP) PO PRN ×5 (05:17→23:19)
[2021-09-08 05:21] LABS: HEMATOCRIT 38.3 % (42.0-52.0); HEMOGLOBIN 13.2 g/dl (13.5-17.5); MEAN CORPUSCULAR HEMOGLOBIN 33.2 pg (27.0-33.0); MEAN CORPUSCULAR HGB CONC 34.5 g/dl (32.0-36.5); MEAN CORPUSCULAR VOLUME 96.5 fl (80.0-96.0); PLATELET COUNT, AUTOMATED 217 10^3/uL (150-450); RED BLOOD COUNT 3.97 10^6/uL (4.30-6.10); WHITE BLOOD COUNT 10.5 10^3/uL (4.0-10.0)
[2021-09-08 06:00] VITALS: BP 137/69
[2021-09-08 06:13] LABS: ALBUMIN 3.5 GM/DL (3.2-5.2); ALT/SGPT 123 U/L (12-78); BILIRUBIN,TOTAL 0.7 MG/DL (0.2-1.0); BLOOD UREA NITROGEN 32 MG/DL (7-18); CARBON DIOXIDE LEVEL 24 MEQ/L (21-32); CHLORIDE LEVEL 108 MEQ/L (98-107); CREATININE FOR GFR 0.95 MG/DL (0.70-1.30); GLOMERULAR FILTRATION RATE > 60.0 (>49); GLUCOSE, FASTING 96 MG/DL (70-100); POTASSIUM SERUM 4.3 MEQ/L (3.5-5.1); SODIUM LEVEL 138 MEQ/L (136-145)
[2021-09-08] MEDS: HumaLOG INSULIN (NovoLOG) PER UNIT SC SCH ×4 (07:30→20:03)
[2021-09-08] MEDS: LEVEMIR (INSULIN DETEMIR) 1 UNITS/0.01ML SC SCH ×2 (08:22→21:08)
[2021-09-08 08:30] VITALS: BP 131/68
[2021-09-08] MEDS: DOCUSATE SODIUM 100MG CAPSULE PO SCH ×2 (08:42→21:06)
[2021-09-08] MEDS: FOLIC ACID 1 MG TAB PO SCH (08:42)
[2021-09-08] MEDS: MULTIVITAMINS/MINERALS THERAP 1 TAB PO SCH (08:42)
[2021-09-08] MEDS: MELOXICAM (MOBIC) 7.5 MG TAB PO SCH (08:42)
[2021-09-08] MEDS: THIAMINE 100 MG TAB PO SCH (08:42)
[2021-09-08] MEDS: LACTOBACILLUS ACIDOPHILUS CAP (BACID) PO SCH (08:42)
[2021-09-08] MEDS: FLUTICASONE PROP 0.05% NASAL SPRAY 16 GM (FLONASE) NARES SCH ×2 (08:43→21:06)
[2021-09-08] MEDS: LIDOCAINE 5% (LIDODERM) PATCH TD SCH (08:43)
[2021-09-08] MEDS: ASCORBIC ACID 500 MG TAB PO SCH (08:44)
[2021-09-08] MEDS: METOPROLOL SUCC (TopROL XL) 50MG **XL** TAB PO SCH (08:44)
[2021-09-08] MEDS: ENOXAPARIN 40MG/0.4ML SYRINGE (J1650 PER 10MG) SC SCH (08:44)
[2021-09-08] MEDS: cefTRIAXone SOD 1 GM in D5W MINI-BAG PLUS 50 ML IV SCH (08:45)
[2021-09-08] MEDS: SODIUM CHLORIDE 0.9% INJ 10 ML SYR IV PRN (09:31)
[2021-09-08 14:00] VITALS: BP 118/66
[2021-09-08] MEDS: dexameTHASONE 4 MG/ML 1ML VIAL (J1100 PER 1MG) IV SCH (14:42)
[2021-09-08] MEDS: SENNA 8.6 MG TAB (SENOKOT) PO SCH (21:07)
[2021-09-08] MEDS: **NOTE PATIENT COMMENT** MISC XX SCH (21:08)
[2021-09-08 22:00] VITALS: BP 108/69
[2021-09-09] MEDS: dexameTHASONE 4 MG/ML 1ML VIAL (J1100 PER 1MG) IV SCH ×2 (02:07→14:10)
[2021-09-09] MEDS: SODIUM CHLORIDE 0.9% INJ 10 ML SYR IV PRN ×3 (02:07→14:14)
[2021-09-09] MEDS: SODIUM CHLORIDE 0.9% INJ 10 ML SYR IV SCH (05:00)
[2021-09-09 05:19] LABS: HEMATOCRIT 38.1 % (42.0-52.0); MEAN CORPUSCULAR HEMOGLOBIN 32.5 pg (27.0-33.0); MEAN CORPUSCULAR HGB CONC 34.1 g/dl (32.0-36.5); MEAN CORPUSCULAR VOLUME 95.3 fl (80.0-96.0); PLATELET COUNT, AUTOMATED 161 10^3/uL (150-450); WHITE BLOOD COUNT 9.9 10^3/uL (4.0-10.0)
[2021-09-09 05:58] LABS: ALBUMIN 3.5 GM/DL (3.2-5.2); ALT/SGPT 139 U/L (12-78); BILIRUBIN,TOTAL 0.7 MG/DL (0.2-1.0); BLOOD UREA NITROGEN 25 MG/DL (7-18); CALCIUM LEVEL 8.8 MG/DL (8.8-10.2); CARBON DIOXIDE LEVEL 24 MEQ/L (21-32); CHLORIDE LEVEL 108 MEQ/L (98-107); CREATININE FOR GFR 0.85 MG/DL (0.70-1.30); GLOMERULAR FILTRATION RATE > 60.0 (>49); GLUCOSE, FASTING 152 MG/DL (70-100); POTASSIUM SERUM 4.7 MEQ/L (3.5-5.1); SODIUM LEVEL 137 MEQ/L (136-145); TOTAL PROTEIN 6.9 GM/DL (6.4-8.2)
[2021-09-09 06:00] VITALS: BP 127/78
[2021-09-09] MEDS: HumaLOG INSULIN (NovoLOG) PER UNIT SC SCH ×4 (09:00→22:21)
[2021-09-09] MEDS: ENOXAPARIN 40MG/0.4ML SYRINGE (J1650 PER 10MG) SC SCH (09:01)
[2021-09-09] MEDS: LEVEMIR (INSULIN DETEMIR) 1 UNITS/0.01ML SC SCH ×2 (09:01→22:28)
[2021-09-09] MEDS: cefTRIAXone SOD 1 GM in D5W MINI-BAG PLUS 50 ML IV SCH (09:01)
[2021-09-09] MEDS: FLUTICASONE PROP 0.05% NASAL SPRAY 16 GM (FLONASE) NARES SCH ×2 (09:01→22:21)
[2021-09-09] MEDS: THIAMINE 100 MG TAB PO SCH (09:09)
[2021-09-09] MEDS: LIDOCAINE 5% (LIDODERM) PATCH TD SCH (09:09)
[2021-09-09] MEDS: FOLIC ACID 1 MG TAB PO SCH (09:09)
[2021-09-09] MEDS: ANEXSIA, NORCO 7.5MG/325MG TABLET(HYDROCODONE/APAP) PO PRN ×4 (09:09→22:28)
[2021-09-09] MEDS: MELOXICAM (MOBIC) 7.5 MG TAB PO SCH (09:10)
[2021-09-09] MEDS: MULTIVITAMINS/MINERALS THERAP 1 TAB PO SCH (09:10)
[2021-09-09] MEDS: DOCUSATE SODIUM 100MG CAPSULE PO SCH ×2 (09:10→22:27)
[2021-09-09] MEDS: ASCORBIC ACID 500 MG TAB PO SCH (09:10)
[2021-09-09] MEDS: LACTOBACILLUS ACIDOPHILUS CAP (BACID) PO SCH (09:10)
[2021-09-09] MEDS: METOPROLOL SUCC (TopROL XL) 50MG **XL** TAB PO SCH (09:10)
[2021-09-09 14:00] VITALS: BP 128/77
[2021-09-09] MEDS: CALCIUM CARBONATE 500 MG CHEW U/D PO PRN ×2 (14:10→22:27)
[2021-09-09 20:00] VITALS: BP 126/68
[2021-09-09] MEDS: **NOTE PATIENT COMMENT** MISC XX SCH (22:22)
[2021-09-09] MEDS: SENNA 8.6 MG TAB (SENOKOT) PO SCH (22:27)
[2021-09-10] MEDS: dexameTHASONE 4 MG/ML 1ML VIAL (J1100 PER 1MG) IV SCH ×2 (03:10→14:29)
[2021-09-10] MEDS: SODIUM CHLORIDE 0.9% INJ 10 ML SYR IV PRN ×4 (03:10→22:02)
[2021-09-10] MEDS: ANEXSIA, NORCO 7.5MG/325MG TABLET(HYDROCODONE/APAP) PO PRN ×4 (03:11→23:45)
[2021-09-10 06:00] VITALS: BP 149/77
[2021-09-10] MEDS: SODIUM CHLORIDE 0.9% INJ 10 ML SYR IV SCH (06:08)
[2021-09-10] MEDS: traMADol 50 MG TAB PO PRN (06:08)
[2021-09-10] MEDS: DOCUSATE SODIUM 100MG CAPSULE PO SCH ×2 (08:24→22:01)
[2021-09-10] MEDS: LACTOBACILLUS ACIDOPHILUS CAP (BACID) PO SCH (08:24)
[2021-09-10] MEDS: MELOXICAM (MOBIC) 7.5 MG TAB PO SCH (08:24)
[2021-09-10] MEDS: LEVEMIR (INSULIN DETEMIR) 1 UNITS/0.01ML SC SCH ×2 (08:25→22:05)
[2021-09-10] MEDS: MULTIVITAMINS/MINERALS THERAP 1 TAB PO SCH (08:25)
[2021-09-10] MEDS: FOLIC ACID 1 MG TAB PO SCH (08:25)
[2021-09-10] MEDS: METOPROLOL SUCC (TopROL XL) 50MG **XL** TAB PO SCH (08:25)
[2021-09-10] MEDS: THIAMINE 100 MG TAB PO SCH (08:25)
[2021-09-10] MEDS: ASCORBIC ACID 500 MG TAB PO SCH (08:25)
[2021-09-10] MEDS: LIDOCAINE 5% (LIDODERM) PATCH TD SCH (08:26)
[2021-09-10] MEDS: ENOXAPARIN 40MG/0.4ML SYRINGE (J1650 PER 10MG) SC SCH (08:26)
[2021-09-10] MEDS: FLUTICASONE PROP 0.05% NASAL SPRAY 16 GM (FLONASE) NARES SCH ×2 (08:26→21:00)
[2021-09-10] MEDS: HumaLOG INSULIN (NovoLOG) PER UNIT SC SCH ×4 (08:27→22:04)
[2021-09-10 08:50] LABS: BASO % 0.4 % (0.0-1.0); EOS % 0.2 % (0.0-3.0); HEMATOCRIT 37.7 % (42.0-52.0); LYMPH % 9.4 % (24.0-44.0); MEAN CORPUSCULAR HEMOGLOBIN 32.7 pg (27.0-33.0); MEAN CORPUSCULAR HGB CONC 34.5 g/dl (32.0-36.5); MONO # 0.4 10^3/uL (0.0-0.8); MONO % 3.9 % (2.0-8.0); NEUTROPHILS # 9.1 10^3/uL (1.5-8.5); NEUTROPHILS % 84.9 % (36.0-66.0); PLATELET COUNT, AUTOMATED 171 10^3/uL (150-450); RED BLOOD COUNT 3.97 10^6/uL (4.30-6.10); WHITE BLOOD COUNT 10.8 10^3/uL (4.0-10.0)
[2021-09-10 09:35] LABS: ALBUMIN 3.3 GM/DL (3.2-5.2); ALT/SGPT 131 U/L (12-78); BILIRUBIN,TOTAL 0.7 MG/DL (0.2-1.0); BLOOD UREA NITROGEN 26 MG/DL (7-18); C REACTIVE PROTEIN QUANTITATIV 0.88 MG/DL (0.00-0.30); CALCIUM LEVEL 9.4 MG/DL (8.8-10.2); CARBON DIOXIDE LEVEL 23 MEQ/L (21-32); CHLORIDE LEVEL 108 MEQ/L (98-107); CREATININE FOR GFR 0.79 MG/DL (0.70-1.30); GLOMERULAR FILTRATION RATE > 60.0 (>49); GLUCOSE, FASTING 159 MG/DL (70-100); MAGNESIUM LEVEL 2.3 MG/DL (1.8-2.4); POTASSIUM SERUM 4.7 MEQ/L (3.5-5.1); SODIUM LEVEL 137 MEQ/L (136-145); TOTAL PROTEIN 7.1 GM/DL (6.4-8.2)
[2021-09-10 14:56] VITALS: BP 140/73
[2021-09-10 22:00] VITALS: BP 133/72
[2021-09-10] MEDS: SENNA 8.6 MG TAB (SENOKOT) PO SCH (22:01)
[2021-09-10] MEDS: **NOTE PATIENT COMMENT** MISC XX SCH (22:07)
[2021-09-10] MEDS: MORPHINE 4 MG/ML 1ML VIAL/SYRINGE IV PRN (22:11)
[2021-09-10] MEDS: CALCIUM CARBONATE 500 MG CHEW U/D PO PRN (22:22)
[2021-09-11] MEDS: dexameTHASONE 4 MG/ML 1ML VIAL (J1100 PER 1MG) IV SCH ×2 (04:17→14:19)
[2021-09-11] MEDS: SODIUM CHLORIDE 0.9% INJ 10 ML SYR IV PRN ×4 (04:17→14:20)
[2021-09-11] MEDS: ANEXSIA, NORCO 7.5MG/325MG TABLET(HYDROCODONE/APAP) PO PRN ×2 (04:18→09:24)
[2021-09-11 06:09] VITALS: BP 136/77
[2021-09-11] MEDS: SODIUM CHLORIDE 0.9% INJ 10 ML SYR IV SCH (06:20)
[2021-09-11] MEDS: CALCIUM CARBONATE 500 MG CHEW U/D PO PRN (06:21)
[2021-09-11] MEDS: traMADol 50 MG TAB PO PRN (06:21)
[2021-09-11 08:37] LABS: BASO # 0.1 10^3/uL (0.0-0.2); BASO % 0.5 % (0.0-1.0); EOS % 0.2 % (0.0-3.0); HEMATOCRIT 39.3 % (42.0-52.0); HEMOGLOBIN 13.5 g/dl (13.5-17.5); LYMPH # 1.2 10^3/uL (1.5-5.0); LYMPH % 9.4 % (24.0-44.0); MEAN CORPUSCULAR HEMOGLOBIN 32.6 pg (27.0-33.0); MEAN CORPUSCULAR HGB CONC 34.4 g/dl (32.0-36.5); MEAN CORPUSCULAR VOLUME 94.9 fl (80.0-96.0); MONO # 0.5 10^3/uL (0.0-0.8); NEUTROPHILS # 10.4 10^3/uL (1.5-8.5); NEUTROPHILS % 84.3 % (36.0-66.0); PLATELET COUNT, AUTOMATED 195 10^3/uL (150-450); RED BLOOD COUNT 4.14 10^6/uL (4.30-6.10); WHITE BLOOD COUNT 12.3 10^3/uL (4.0-10.0)
[2021-09-11] MEDS: LIDOCAINE 5% (LIDODERM) PATCH TD SCH (09:00)
[2021-09-11 09:05] LABS: BLOOD UREA NITROGEN 26 MG/DL (7-18); CALCIUM LEVEL 9.6 MG/DL (8.8-10.2); CARBON DIOXIDE LEVEL 23 MEQ/L (21-32); CHLORIDE LEVEL 105 MEQ/L (98-107); CREATININE FOR GFR 0.85 MG/DL (0.70-1.30); GLOMERULAR FILTRATION RATE > 60.0 (>49); GLUCOSE, FASTING 154 MG/DL (70-100); MAGNESIUM LEVEL 2.2 MG/DL (1.8-2.4); POTASSIUM SERUM 4.9 MEQ/L (3.5-5.1); SODIUM LEVEL 136 MEQ/L (136-145)
[2021-09-11] MEDS: MELOXICAM (MOBIC) 7.5 MG TAB PO SCH (09:22)
[2021-09-11] MEDS: ASCORBIC ACID 500 MG TAB PO SCH (09:23)
[2021-09-11] MEDS: METOPROLOL SUCC (TopROL XL) 50MG **XL** TAB PO SCH (09:23)
[2021-09-11] MEDS: LACTOBACILLUS ACIDOPHILUS CAP (BACID) PO SCH (09:23)
[2021-09-11] MEDS: MULTIVITAMINS/MINERALS THERAP 1 TAB PO SCH (09:23)
[2021-09-11] MEDS: DOCUSATE SODIUM 100MG CAPSULE PO SCH (09:23)
[2021-09-11] MEDS: FOLIC ACID 1 MG TAB PO SCH (09:23)
[2021-09-11] MEDS: THIAMINE 100 MG TAB PO SCH (09:23)
[2021-09-11 09:25] VITALS: BP 131/78
[2021-09-11] MEDS: FLUTICASONE PROP 0.05% NASAL SPRAY 16 GM (FLONASE) NARES SCH (09:25)
[2021-09-11] MEDS: ENOXAPARIN 40MG/0.4ML SYRINGE (J1650 PER 10MG) SC SCH (09:25)
[2021-09-11] MEDS: LEVEMIR (INSULIN DETEMIR) 1 UNITS/0.01ML SC SCH (09:25)
[2021-09-11] MEDS: HumaLOG INSULIN (NovoLOG) PER UNIT SC SCH ×2 (10:39→14:00)
[2021-09-11] MEDS ORDERED: DEXA1TA PO ×2 (10:59→11:04)
[2021-09-11] MEDS ORDERED: FOLI1TAB11 PO (10:59)
[2021-09-11] MEDS ORDERED: RISATAB3 PO (10:59)
[2021-09-11] MEDS ORDERED: INSU100V12 INJ (10:59)
[2021-09-11] MEDS ORDERED: THIA100TA PO (10:59)
[2021-09-11] MEDS ORDERED: PANT40TA29 PO (11:00)
[2021-09-11 14:02] VITALS: BP 130/77
[2021-09-11] MEDS: MORPHINE 4 MG/ML 1ML VIAL/SYRINGE IV PRN (14:02)
== END 2021-09-11 15:35 | DRG 41 ==
LOC: M MSPAV 00:09 → UNDOADMOB 01:32 → INTOOBSV 01:32 → M MSPAV 01:32 → OBSVTOIN 09-06 17:01
PROVIDERS: ADMIT Family Medicine; ATTEND Family Medicine
DX: C79.31 Secondary malignant neoplasm of brain (principal); A41.9 Sepsis, unspecified organism; C78.7 Secondary malignant neoplasm of liver and intrahepatic bile duct; C78.00 Secondary malignant neoplasm of unspecified lung; E66.2 Morbid (severe) obesity with alveolar hypoventilation; Z68.42 Body mass index [BMI] 45.0-49.9, adult; C18.9 Malignant neoplasm of colon, unspecified; N39.0 Urinary tract infection, site not specified; I10 Essential (primary) hypertension; R73.9 Hyperglycemia, unspecified; Z92.21 Personal history of antineoplastic chemotherapy; G89.3 Neoplasm related pain (acute) (chronic); Z79.899 Other long term (current) drug therapy; Z88.2 Allergy status to sulfonamides

== ENCOUNTER 2021-09-11 09:55 | Inpatient (IN) | payer MEDICAID, OTHER ==
[~2021-09-11] VITALS: Ht 170.2 cm; Wt 146.0 kg
[~2021-09-11 09:55] MED LIST changes: +DOCU100C16 PO; +HYDR-3719 PO; +METF10004 PO; +MYRB50TA PO; +PROAAER10 INH
[2021-09-11] MEDS ORDERED: THIA100TA PO (10:59)
[2021-09-11] MEDS ORDERED: RISATAB3 PO (10:59)
[2021-09-11] MEDS ORDERED: DEXA1TA PO ×2 (10:59→11:04)
[2021-09-11] MEDS ORDERED: FOLI1TAB11 PO (10:59)
[2021-09-11] MEDS ORDERED: INSU100V12 INJ (10:59)
[2021-09-11] MEDS ORDERED: PANT40TA29 PO (11:00)
[2021-09-11] MEDS ORDERED: MIRALAX *UNIT DOSE* 17GM PACKET PO PRN (14:45)
[2021-09-11] MEDS ORDERED: CALCIUM CARBONATE 500 MG CHEW U/D PO PRN (14:45)
[2021-09-11] MEDS ORDERED: BISACODYL 5 MG TAB PO PRN (14:45)
[2021-09-11] MEDS ORDERED: ANEXSIA, NORCO 7.5MG/325MG TABLET(HYDROCODONE/APAP) PO PRN (14:45)
[2021-09-11] MEDS: BISACODYL 5 MG TAB PO SCH (17:48)
[2021-09-11] MEDS: CALCIUM CARBONATE 500 MG CHEW U/D PO SCH ×2 (17:53→20:42)
[2021-09-11] MEDS: ANEXSIA, NORCO 7.5MG/325MG TABLET(HYDROCODONE/APAP) PO SCH ×2 (17:54→22:18)
[2021-09-11 20:00] VITALS: BP 154/78
[2021-09-11] MEDS: COMBIVENT RESPIMAT 100-20MCG INHALER 4GM INH SCH (20:30)
[2021-09-11] MEDS: SENNA 8.6 MG TAB (SENOKOT) PO SCH (20:42)
[2021-09-11] MEDS: DOCUSATE SODIUM 100MG CAPSULE PO SCH (20:42)
[2021-09-11] MEDS: GABAPENTIN 100 MG CAP PO SCH (20:42)
[2021-09-11] MEDS: PANTOPRAZOLE 40MG TAB (PROTONIX) PO SCH (20:42)
[2021-09-11] MEDS: LEVEMIR (INSULIN DETEMIR) 1 UNITS/0.01ML SC SCH (20:43)
[2021-09-11] MEDS: FLUTICASONE PROP 0.05% NASAL SPRAY 16 GM (FLONASE) NARES SCH (20:43)
[2021-09-11] MEDS: **NOTE PATIENT COMMENT** MISC XX SCH (20:44)
[2021-09-11] MEDS: PREPARATION H SUPP (HEMORRHOID) PR SCH (20:44)
[2021-09-11] MEDS ORDERED: MAALOX 30 ML SUSP *UDC PO PRN (22:25)
[2021-09-12] MEDS: ANEXSIA, NORCO 7.5MG/325MG TABLET(HYDROCODONE/APAP) PO PRN ×2 (02:53→15:12)
[2021-09-12 06:00] VITALS: BP 174/93
[2021-09-12] MEDS: ANEXSIA, NORCO 7.5MG/325MG TABLET(HYDROCODONE/APAP) PO SCH ×4 (06:44→21:46)
[2021-09-12] MEDS: COMBIVENT RESPIMAT 100-20MCG INHALER 4GM INH SCH ×3 (07:06→20:00)
[2021-09-12] MEDS: PREPARATION H SUPP (HEMORRHOID) PR SCH ×2 (09:00→21:00)
[2021-09-12] MEDS: FLUTICASONE PROP 0.05% NASAL SPRAY 16 GM (FLONASE) NARES SCH ×2 (09:00→21:00)
[2021-09-12] MEDS ORDERED: LIDOCAINE 5% (LIDODERM) PATCH TD SCH (09:00)
[2021-09-12] MEDS: MULTIVITAMINS/MINERALS THERAP 1 TAB PO SCH (09:17)
[2021-09-12] MEDS: DOCUSATE SODIUM 100MG CAPSULE PO SCH ×2 (09:17→21:39)
[2021-09-12] MEDS: LACTOBACILLUS ACIDOPHILUS CAP (BACID) PO SCH (09:17)
[2021-09-12] MEDS: METOPROLOL SUCC (TopROL XL) 50MG **XL** TAB PO SCH (09:17)
[2021-09-12] MEDS: GABAPENTIN 100 MG CAP PO SCH ×3 (09:17→21:39)
[2021-09-12] MEDS: ASCORBIC ACID 500 MG TAB PO SCH (09:17)
[2021-09-12] MEDS: PANTOPRAZOLE 40MG TAB (PROTONIX) PO SCH ×2 (09:18→21:39)
[2021-09-12] MEDS: FOLIC ACID 1 MG TAB PO SCH (09:18)
[2021-09-12] MEDS: BISACODYL 5 MG TAB PO SCH (09:18)
[2021-09-12] MEDS: THIAMINE 100 MG TAB PO SCH (09:18)
[2021-09-12] MEDS: CALCIUM CARBONATE 500 MG CHEW U/D PO SCH ×3 (09:18→21:39)
[2021-09-12] MEDS: LIDOCAINE 5% (LIDODERM) PATCH TD SCH (09:19)
[2021-09-12] MEDS: ENOXAPARIN 40MG/0.4ML SYRINGE (J1650 PER 10MG) SC SCH (09:20)
[2021-09-12] MEDS: LEVEMIR (INSULIN DETEMIR) 1 UNITS/0.01ML SC SCH ×2 (09:20→21:40)
[2021-09-12 11:17] LABS: BASO # 0.1 10^3/uL (0.0-0.2); BASO % 0.7 % (0.0-1.0); EOS # 0.2 10^3/uL (0.0-0.5); EOS % 0.9 % (0.0-3.0); HEMATOCRIT 40.4 % (42.0-52.0); HEMOGLOBIN 13.9 g/dl (13.5-17.5); LYMPH # 1.8 10^3/uL (1.5-5.0); LYMPH % 9.2 % (24.0-44.0); MEAN CORPUSCULAR HEMOGLOBIN 32.6 pg (27.0-33.0); MEAN CORPUSCULAR HGB CONC 34.4 g/dl (32.0-36.5); MEAN CORPUSCULAR VOLUME 94.8 fl (80.0-96.0); MONO # 1.4 10^3/uL (0.0-0.8); NEUTROPHILS # 15.7 10^3/uL (1.5-8.5); NEUTROPHILS % 80.1 % (36.0-66.0); PLATELET COUNT, AUTOMATED 288 10^3/uL (150-450); RED BLOOD COUNT 4.26 10^6/uL (4.30-6.10); WHITE BLOOD COUNT 19.6 10^3/uL (4.0-10.0)
[2021-09-12 12:04] LABS: ALBUMIN 3.5 GM/DL (3.2-5.2); ALT/SGPT 152 U/L (12-78); BILIRUBIN,TOTAL 1.1 MG/DL (0.2-1.0); BLOOD UREA NITROGEN 32 MG/DL (7-18); CALCIUM LEVEL 9.6 MG/DL (8.8-10.2); CARBON DIOXIDE LEVEL 22 MEQ/L (21-32); CHLORIDE LEVEL 105 MEQ/L (98-107); CREATININE FOR GFR 1.02 MG/DL (0.70-1.30); GLOMERULAR FILTRATION RATE > 60.0 (>49); GLUCOSE, FASTING 171 MG/DL (70-100); SODIUM LEVEL 137 MEQ/L (136-145); TOTAL PROTEIN 7.1 GM/DL (6.4-8.2)
[2021-09-12 14:00] VITALS: BP 119/78
[2021-09-12 20:00] VITALS: BP 149/82
[2021-09-12] MEDS: **NOTE PATIENT COMMENT** MISC XX SCH (21:00)
[2021-09-12] MEDS: SENNA 8.6 MG TAB (SENOKOT) PO SCH (21:40)
[2021-09-13] MEDS: ANEXSIA, NORCO 7.5MG/325MG TABLET(HYDROCODONE/APAP) PO PRN (04:03)
[2021-09-13 06:00] VITALS: BP 139/75
[2021-09-13] MEDS: COMBIVENT RESPIMAT 100-20MCG INHALER 4GM INH SCH ×3 (07:26→19:45)
[2021-09-13] MEDS: ANEXSIA, NORCO 7.5MG/325MG TABLET(HYDROCODONE/APAP) PO SCH ×4 (08:23→22:34)
[2021-09-13] MEDS: BISACODYL 5 MG TAB PO SCH (08:24)
[2021-09-13] MEDS: DOCUSATE SODIUM 100MG CAPSULE PO SCH ×2 (08:24→20:49)
[2021-09-13] MEDS: LACTOBACILLUS ACIDOPHILUS CAP (BACID) PO SCH (08:24)
[2021-09-13] MEDS: GABAPENTIN 100 MG CAP PO SCH ×3 (08:25→20:54)
[2021-09-13] MEDS: MULTIVITAMINS/MINERALS THERAP 1 TAB PO SCH (08:25)
[2021-09-13] MEDS: THIAMINE 100 MG TAB PO SCH (08:25)
[2021-09-13] MEDS: FOLIC ACID 1 MG TAB PO SCH (08:25)
[2021-09-13] MEDS: PANTOPRAZOLE 40MG TAB (PROTONIX) PO SCH ×2 (08:25→20:49)
[2021-09-13] MEDS: METOPROLOL SUCC (TopROL XL) 50MG **XL** TAB PO SCH (08:26)
[2021-09-13] MEDS: CALCIUM CARBONATE 500 MG CHEW U/D PO SCH ×3 (08:26→20:50)
[2021-09-13] MEDS: ASCORBIC ACID 500 MG TAB PO SCH (08:26)
[2021-09-13] MEDS: PREPARATION H SUPP (HEMORRHOID) PR SCH ×2 (08:27→20:51)
[2021-09-13] MEDS: LEVEMIR (INSULIN DETEMIR) 1 UNITS/0.01ML SC SCH ×2 (08:27→20:50)
[2021-09-13] MEDS: ENOXAPARIN 40MG/0.4ML SYRINGE (J1650 PER 10MG) SC SCH (08:27)
[2021-09-13] MEDS: FLUTICASONE PROP 0.05% NASAL SPRAY 16 GM (FLONASE) NARES SCH ×2 (08:27→20:50)
[2021-09-13] MEDS: LIDOCAINE 5% (LIDODERM) PATCH TD SCH (08:29)
[2021-09-13 14:00] VITALS: BP 133/61
[2021-09-13 20:00] VITALS: BP 142/67
[2021-09-13] MEDS: SENNA 8.6 MG TAB (SENOKOT) PO SCH (20:49)
[2021-09-13] MEDS: **NOTE PATIENT COMMENT** MISC XX SCH (20:52)
[2021-09-13] MEDS ORDERED: NORCO, ANEXSIA 5/325MG TABLET (HYDROcodone/ACETAMINOPHEN) PO ONE (21:30)
[2021-09-13] MEDS ORDERED: NORCO, ANEXSIA 5/325MG TABLET (HYDROcodone/ACETAMINOPHEN) PO PRN (21:35)
[2021-09-13] MEDS ORDERED: PILL CUTTER 1 EACH XX PRN (21:35)
[2021-09-14] MEDS: NORCO, ANEXSIA 5/325MG TABLET (HYDROcodone/ACETAMINOPHEN) PO PRN ×2 (02:41→06:39)
[2021-09-14 06:00] VITALS: BP 126/66
[2021-09-14] MEDS: SODIUM CHLORIDE 0.9% INJ 10 ML SYR IV PRN (06:20)
[2021-09-14] MEDS: NORCO, ANEXSIA 5/325MG TABLET (HYDROcodone/ACETAMINOPHEN) PO SCH ×4 (06:39→21:08)
[2021-09-14 06:44] LABS: BASO # 0.1 10^3/uL (0.0-0.2); BASO % 0.7 % (0.0-1.0); EOS # 0.2 10^3/uL (0.0-0.5); EOS % 1.4 % (0.0-3.0); HEMATOCRIT 37.3 % (42.0-52.0); HEMOGLOBIN 12.5 g/dl (13.5-17.5); LYMPH # 2.2 10^3/uL (1.5-5.0); LYMPH % 17.9 % (24.0-44.0); MEAN CORPUSCULAR HGB CONC 33.5 g/dl (32.0-36.5); MEAN CORPUSCULAR VOLUME 95.4 fl (80.0-96.0); MONO # 1.1 10^3/uL (0.0-0.8); MONO % 8.5 % (2.0-8.0); NEUTROPHILS # 8.7 10^3/uL (1.5-8.5); NEUTROPHILS % 69.6 % (36.0-66.0); PLATELET COUNT, AUTOMATED 186 10^3/uL (150-450); RED BLOOD COUNT 3.91 10^6/uL (4.30-6.10); WHITE BLOOD COUNT 12.5 10^3/uL (4.0-10.0)
[2021-09-14 07:11] LABS: ALBUMIN 2.9 GM/DL (3.2-5.2); ALT/SGPT 134 U/L (12-78); BILIRUBIN,TOTAL 0.9 MG/DL (0.2-1.0); BLOOD UREA NITROGEN 29 MG/DL (7-18); CARBON DIOXIDE LEVEL 23 MEQ/L (21-32); CHLORIDE LEVEL 108 MEQ/L (98-107); CREATININE FOR GFR 0.86 MG/DL (0.70-1.30); GLOMERULAR FILTRATION RATE > 60.0 (>49); GLUCOSE, FASTING 84 MG/DL (70-100); MAGNESIUM LEVEL 2.4 MG/DL (1.8-2.4); SODIUM LEVEL 138 MEQ/L (136-145); TOTAL PROTEIN 6.9 GM/DL (6.4-8.2)
[2021-09-14] MEDS: LEVEMIR (INSULIN DETEMIR) 1 UNITS/0.01ML SC SCH ×2 (07:15→21:09)
[2021-09-14] MEDS: COMBIVENT RESPIMAT 100-20MCG INHALER 4GM INH SCH ×3 (07:20→19:22)
[2021-09-14] MEDS: FLUTICASONE PROP 0.05% NASAL SPRAY 16 GM (FLONASE) NARES SCH ×3 (09:00→21:00)
[2021-09-14] MEDS: PREPARATION H SUPP (HEMORRHOID) PR SCH ×2 (09:00→21:00)
[2021-09-14] MEDS: CALCIUM CARBONATE 500 MG CHEW U/D PO SCH ×3 (10:11→21:10)
[2021-09-14] MEDS: THIAMINE 100 MG TAB PO SCH (10:12)
[2021-09-14] MEDS: MULTIVITAMINS/MINERALS THERAP 1 TAB PO SCH (10:14)
[2021-09-14] MEDS: PANTOPRAZOLE 40MG TAB (PROTONIX) PO SCH ×2 (10:14→21:06)
[2021-09-14] MEDS: DOCUSATE SODIUM 100MG CAPSULE PO SCH ×2 (10:14→21:06)
[2021-09-14] MEDS: ASCORBIC ACID 500 MG TAB PO SCH (10:14)
[2021-09-14] MEDS: GABAPENTIN 100 MG CAP PO SCH ×3 (10:15→21:08)
[2021-09-14] MEDS: BISACODYL 5 MG TAB PO SCH (10:15)
[2021-09-14] MEDS: FOLIC ACID 1 MG TAB PO SCH (10:15)
[2021-09-14] MEDS: LACTOBACILLUS ACIDOPHILUS CAP (BACID) PO SCH (10:15)
[2021-09-14] MEDS: METOPROLOL SUCC (TopROL XL) 50MG **XL** TAB PO SCH (10:16)
[2021-09-14] MEDS: ENOXAPARIN 40MG/0.4ML SYRINGE (J1650 PER 10MG) SC SCH (10:16)
[2021-09-14] MEDS: SODIUM CHLORIDE 0.9% INJ 10 ML SYR IV SCH (10:17)
[2021-09-14] MEDS: LIDOCAINE 5% (LIDODERM) PATCH TD SCH (10:18)
[2021-09-14 14:00] VITALS: BP 159/90
[2021-09-14 20:00] VITALS: BP 129/68
[2021-09-14] MEDS: SENNA 8.6 MG TAB (SENOKOT) PO SCH (21:06)
[2021-09-14] MEDS: GABAPENTIN 300 MG CAP PO SCH (21:08)
[2021-09-14] MEDS: **NOTE PATIENT COMMENT** MISC XX SCH (21:10)
[2021-09-15] MEDS: DICLOFENAC EPOLAMINE 1.3 % PATCH TOP SCH ×3 (02:05→20:40)
[2021-09-15] MEDS: NORCO, ANEXSIA 5/325MG TABLET (HYDROcodone/ACETAMINOPHEN) PO PRN (02:09)
[2021-09-15 05:29] VITALS: BP 128/64
[2021-09-15] MEDS: NORCO, ANEXSIA 5/325MG TABLET (HYDROcodone/ACETAMINOPHEN) PO SCH ×4 (07:00→20:38)
[2021-09-15] MEDS: COMBIVENT RESPIMAT 100-20MCG INHALER 4GM INH SCH ×3 (07:51→19:57)
[2021-09-15] MEDS: FLUTICASONE PROP 0.05% NASAL SPRAY 16 GM (FLONASE) NARES SCH ×2 (09:00→20:39)
[2021-09-15] MEDS: PREPARATION H SUPP (HEMORRHOID) PR SCH ×2 (09:00→20:39)
[2021-09-15] MEDS: LEVEMIR (INSULIN DETEMIR) 1 UNITS/0.01ML SC SCH ×2 (09:49→20:38)
[2021-09-15] MEDS: ENOXAPARIN 40MG/0.4ML SYRINGE (J1650 PER 10MG) SC SCH (09:50)
[2021-09-15] MEDS: GABAPENTIN 300 MG CAP PO SCH ×3 (09:51→20:37)
[2021-09-15] MEDS: ASCORBIC ACID 500 MG TAB PO SCH (09:51)
[2021-09-15] MEDS: BISACODYL 5 MG TAB PO SCH (09:51)
[2021-09-15] MEDS: FOLIC ACID 1 MG TAB PO SCH (09:51)
[2021-09-15] MEDS: MULTIVITAMINS/MINERALS THERAP 1 TAB PO SCH (09:51)
[2021-09-15] MEDS: THIAMINE 100 MG TAB PO SCH (09:51)
[2021-09-15] MEDS: LACTOBACILLUS ACIDOPHILUS CAP (BACID) PO SCH (09:51)
[2021-09-15] MEDS: CALCIUM CARBONATE 500 MG CHEW U/D PO SCH ×3 (09:51→20:36)
[2021-09-15] MEDS: METOPROLOL SUCC (TopROL XL) 50MG **XL** TAB PO SCH (09:52)
[2021-09-15] MEDS: PANTOPRAZOLE 40MG TAB (PROTONIX) PO SCH ×2 (09:52→20:36)
[2021-09-15] MEDS: DOCUSATE SODIUM 100MG CAPSULE PO SCH ×2 (09:52→20:37)
[2021-09-15] MEDS: LIDOCAINE 5% (LIDODERM) PATCH TD SCH (09:56)
[2021-09-15] MEDS: SODIUM CHLORIDE 0.9% INJ 10 ML SYR IV SCH (09:56)
[2021-09-15 14:00] VITALS: BP 145/73
[2021-09-15] MEDS ORDERED: CYCLOBENZAPRINE 5MG TABLET PO PRN (15:45)
[2021-09-15 17:00] VITALS: BP 145/73
[2021-09-15 20:19] VITALS: BP 132/62
[2021-09-15] MEDS: SENNA 8.6 MG TAB (SENOKOT) PO SCH (20:37)
[2021-09-15] MEDS: **NOTE PATIENT COMMENT** MISC XX SCH (20:40)
[2021-09-16] MEDS: NORCO, ANEXSIA 5/325MG TABLET (HYDROcodone/ACETAMINOPHEN) PO PRN ×2 (02:05→14:59)
[2021-09-16 06:41] VITALS: BP 118/62
[2021-09-16] MEDS: NORCO, ANEXSIA 5/325MG TABLET (HYDROcodone/ACETAMINOPHEN) PO SCH ×4 (06:41→22:03)
[2021-09-16] MEDS: COMBIVENT RESPIMAT 100-20MCG INHALER 4GM INH SCH ×3 (07:38→20:00)
[2021-09-16] MEDS: LEVEMIR (INSULIN DETEMIR) 1 UNITS/0.01ML SC SCH ×2 (08:30→22:04)
[2021-09-16] MEDS: PREPARATION H SUPP (HEMORRHOID) PR SCH ×2 (09:00→22:08)
[2021-09-16] MEDS: FLUTICASONE PROP 0.05% NASAL SPRAY 16 GM (FLONASE) NARES SCH ×2 (09:00→22:08)
[2021-09-16] MEDS: FOLIC ACID 1 MG TAB PO SCH (09:10)
[2021-09-16] MEDS: METOPROLOL SUCC (TopROL XL) 50MG **XL** TAB PO SCH (09:10)
[2021-09-16] MEDS: PANTOPRAZOLE 40MG TAB (PROTONIX) PO SCH ×2 (09:10→22:03)
[2021-09-16] MEDS: CALCIUM CARBONATE 500 MG CHEW U/D PO SCH ×3 (09:10→22:02)
[2021-09-16] MEDS: DOCUSATE SODIUM 100MG CAPSULE PO SCH ×2 (09:10→22:02)
[2021-09-16] MEDS: GABAPENTIN 300 MG CAP PO SCH ×3 (09:12→22:02)
[2021-09-16] MEDS: ASCORBIC ACID 500 MG TAB PO SCH (09:12)
[2021-09-16] MEDS: BISACODYL 5 MG TAB PO SCH (09:12)
[2021-09-16] MEDS: THIAMINE 100 MG TAB PO SCH (09:12)
[2021-09-16] MEDS: LACTOBACILLUS ACIDOPHILUS CAP (BACID) PO SCH (09:12)
[2021-09-16] MEDS: DICLOFENAC EPOLAMINE 1.3 % PATCH TOP SCH ×2 (09:13→22:01)
[2021-09-16] MEDS: LIDOCAINE 5% (LIDODERM) PATCH TD SCH (09:13)
[2021-09-16] MEDS: SODIUM CHLORIDE 0.9% INJ 10 ML SYR IV SCH (09:14)
[2021-09-16] MEDS: ENOXAPARIN 40MG/0.4ML SYRINGE (J1650 PER 10MG) SC SCH (09:15)
[2021-09-16] MEDS: MULTIVITAMINS/MINERALS THERAP 1 TAB PO SCH (09:15)
[2021-09-16 12:25] LABS: BASO # 0.1 10^3/uL (0.0-0.2); BASO % 0.6 % (0.0-1.0); EOS # 0.2 10^3/uL (0.0-0.5); EOS % 0.9 % (0.0-3.0); HEMATOCRIT 40.8 % (42.0-52.0); HEMOGLOBIN 13.8 g/dl (13.5-17.5); LYMPH # 2.6 10^3/uL (1.5-5.0); LYMPH % 12.5 % (24.0-44.0); MEAN CORPUSCULAR HEMOGLOBIN 32.6 pg (27.0-33.0); MEAN CORPUSCULAR HGB CONC 33.8 g/dl (32.0-36.5); MEAN CORPUSCULAR VOLUME 96.5 fl (80.0-96.0); MONO % 8.9 % (2.0-8.0); NEUTROPHILS # 15.5 10^3/uL (1.5-8.5); NEUTROPHILS % 74.6 % (36.0-66.0); PLATELET COUNT, AUTOMATED 268 10^3/uL (150-450); RED BLOOD COUNT 4.23 10^6/uL (4.30-6.10); WHITE BLOOD COUNT 20.8 10^3/uL (4.0-10.0)
[2021-09-16 12:46] LABS: BLOOD UREA NITROGEN 29 MG/DL (7-18); CALCIUM LEVEL 9.4 MG/DL (8.8-10.2); CARBON DIOXIDE LEVEL 21 MEQ/L (21-32); CHLORIDE LEVEL 108 MEQ/L (98-107); CREATININE FOR GFR 1.05 MG/DL (0.70-1.30); GLOMERULAR FILTRATION RATE > 60.0 (>49); GLUCOSE, FASTING 86 MG/DL (70-100); POTASSIUM SERUM 4.1 MEQ/L (3.5-5.1); SODIUM LEVEL 139 MEQ/L (136-145)
[2021-09-16 12:55] LABS: MONO # 1.8 10^3/uL (0.0-0.8)
[2021-09-16 14:00] VITALS: BP 127/77
[2021-09-16 20:00] VITALS: BP 124/80
[2021-09-16] MEDS: SENNA 8.6 MG TAB (SENOKOT) PO SCH (22:02)
[2021-09-16] MEDS: **NOTE PATIENT COMMENT** MISC XX SCH (22:04)
[2021-09-17] MEDS: NORCO, ANEXSIA 5/325MG TABLET (HYDROcodone/ACETAMINOPHEN) PO PRN ×2 (03:14→19:29)
[2021-09-17] MEDS: SODIUM CHLORIDE 0.9% INJ 10 ML SYR IV PRN (06:37)
[2021-09-17] MEDS: NORCO, ANEXSIA 5/325MG TABLET (HYDROcodone/ACETAMINOPHEN) PO SCH ×4 (06:38→22:14)
[2021-09-17 06:46] LABS: BASO % 0.4 % (0.0-1.0); EOS # 0.1 10^3/uL (0.0-0.5); EOS % 1.1 % (0.0-3.0); LYMPH # 1.8 10^3/uL (1.5-5.0); LYMPH % 16.6 % (24.0-44.0); MEAN CORPUSCULAR HEMOGLOBIN 33.2 pg (27.0-33.0); MEAN CORPUSCULAR HGB CONC 34.4 g/dl (32.0-36.5); MEAN CORPUSCULAR VOLUME 96.6 fl (80.0-96.0); MONO # 0.8 10^3/uL (0.0-0.8); MONO % 7.7 % (2.0-8.0); NEUTROPHILS # 7.7 10^3/uL (1.5-8.5); NEUTROPHILS % 72.1 % (36.0-66.0); RED BLOOD COUNT 3.52 10^6/uL (4.30-6.10); WHITE BLOOD COUNT 10.7 10^3/uL (4.0-10.0)
[2021-09-17 07:03] LABS: HEMOGLOBIN 11.7 g/dl (13.5-17.5)
[2021-09-17 07:04] LABS: PLATELET COUNT, AUTOMATED 143 10^3/uL (150-450)
[2021-09-17] MEDS: COMBIVENT RESPIMAT 100-20MCG INHALER 4GM INH SCH ×3 (07:47→19:20)
[2021-09-17] MEDS: DICLOFENAC EPOLAMINE 1.3 % PATCH TOP SCH ×2 (08:29→22:15)
[2021-09-17] MEDS: ENOXAPARIN 40MG/0.4ML SYRINGE (J1650 PER 10MG) SC SCH (08:29)
[2021-09-17] MEDS: LIDOCAINE 5% (LIDODERM) PATCH TD SCH (08:29)
[2021-09-17] MEDS: ASCORBIC ACID 500 MG TAB PO SCH (08:30)
[2021-09-17] MEDS: CALCIUM CARBONATE 500 MG CHEW U/D PO SCH ×3 (08:30→22:13)
[2021-09-17] MEDS: SODIUM CHLORIDE 0.9% INJ 10 ML SYR IV SCH (08:30)
[2021-09-17] MEDS: FOLIC ACID 1 MG TAB PO SCH (08:30)
[2021-09-17] MEDS: MULTIVITAMINS/MINERALS THERAP 1 TAB PO SCH (08:31)
[2021-09-17] MEDS: DOCUSATE SODIUM 100MG CAPSULE PO SCH ×2 (08:31→22:13)
[2021-09-17] MEDS: LEVEMIR (INSULIN DETEMIR) 1 UNITS/0.01ML SC SCH ×2 (08:31→22:12)
[2021-09-17] MEDS: METOPROLOL SUCC (TopROL XL) 50MG **XL** TAB PO SCH (08:31)
[2021-09-17] MEDS: LACTOBACILLUS ACIDOPHILUS CAP (BACID) PO SCH (08:31)
[2021-09-17] MEDS: GABAPENTIN 300 MG CAP PO SCH ×3 (08:31→22:12)
[2021-09-17] MEDS: THIAMINE 100 MG TAB PO SCH (08:31)
[2021-09-17] MEDS: PANTOPRAZOLE 40MG TAB (PROTONIX) PO SCH ×2 (08:31→22:13)
[2021-09-17] MEDS: BISACODYL 5 MG TAB PO SCH (08:31)
[2021-09-17] MEDS: FLUTICASONE PROP 0.05% NASAL SPRAY 16 GM (FLONASE) NARES SCH ×2 (08:32→22:14)
[2021-09-17] MEDS: PREPARATION H SUPP (HEMORRHOID) PR SCH ×2 (08:32→22:15)
[2021-09-17 14:00] VITALS: BP 139/79
[2021-09-17 20:00] VITALS: BP 158/86
[2021-09-17] MEDS: SENNA 8.6 MG TAB (SENOKOT) PO SCH (22:14)
[2021-09-17] MEDS: **NOTE PATIENT COMMENT** MISC XX SCH (22:15)
[2021-09-18 05:13] VITALS: BP 152/80
[2021-09-18] MEDS: SODIUM CHLORIDE 0.9% INJ 10 ML SYR IV PRN (05:35)
[2021-09-18 05:49] LABS: BASO # 0.1 10^3/uL (0.0-0.2); BASO % 0.5 % (0.0-1.0); EOS # 0.1 10^3/uL (0.0-0.5); EOS % 1.2 % (0.0-3.0); HEMATOCRIT 33.1 % (42.0-52.0); HEMOGLOBIN 11.1 g/dl (13.5-17.5); LYMPH # 1.9 10^3/uL (1.5-5.0); LYMPH % 17.8 % (24.0-44.0); MEAN CORPUSCULAR HEMOGLOBIN 32.3 pg (27.0-33.0); MEAN CORPUSCULAR HGB CONC 33.5 g/dl (32.0-36.5); MEAN CORPUSCULAR VOLUME 96.2 fl (80.0-96.0); MONO # 0.8 10^3/uL (0.0-0.8); MONO % 7.3 % (2.0-8.0); NEUTROPHILS # 7.7 10^3/uL (1.5-8.5); NEUTROPHILS % 71.1 % (36.0-66.0); PLATELET COUNT, AUTOMATED 148 10^3/uL (150-450); RED BLOOD COUNT 3.44 10^6/uL (4.30-6.10); WHITE BLOOD COUNT 10.8 10^3/uL (4.0-10.0)
[2021-09-18] MEDS: COMBIVENT RESPIMAT 100-20MCG INHALER 4GM INH SCH ×3 (06:16→20:21)
[2021-09-18] MEDS: NORCO, ANEXSIA 5/325MG TABLET (HYDROcodone/ACETAMINOPHEN) PO SCH ×4 (06:31→21:08)
[2021-09-18 06:59] LABS: BLOOD UREA NITROGEN 27 MG/DL (7-18); CALCIUM LEVEL 8.8 MG/DL (8.8-10.2); CARBON DIOXIDE LEVEL 25 MEQ/L (21-32); CHLORIDE LEVEL 107 MEQ/L (98-107); GLOMERULAR FILTRATION RATE > 60.0 (>49); GLUCOSE, FASTING 101 MG/DL (70-100); POTASSIUM SERUM 4.1 MEQ/L (3.5-5.1); SODIUM LEVEL 139 MEQ/L (136-145)
[2021-09-18] MEDS: THIAMINE 100 MG TAB PO SCH (08:28)
[2021-09-18] MEDS: BISACODYL 5 MG TAB PO SCH (08:28)
[2021-09-18] MEDS: FOLIC ACID 1 MG TAB PO SCH (08:28)
[2021-09-18] MEDS: PANTOPRAZOLE 40MG TAB (PROTONIX) PO SCH ×2 (08:28→21:08)
[2021-09-18] MEDS: DOCUSATE SODIUM 100MG CAPSULE PO SCH ×2 (08:28→21:07)
[2021-09-18] MEDS: GABAPENTIN 300 MG CAP PO SCH ×3 (08:28→21:07)
[2021-09-18] MEDS: CALCIUM CARBONATE 500 MG CHEW U/D PO SCH ×3 (08:28→21:08)
[2021-09-18] MEDS: LACTOBACILLUS ACIDOPHILUS CAP (BACID) PO SCH (08:28)
[2021-09-18] MEDS: MULTIVITAMINS/MINERALS THERAP 1 TAB PO SCH (08:29)
[2021-09-18] MEDS: ASCORBIC ACID 500 MG TAB PO SCH (08:29)
[2021-09-18] MEDS: METOPROLOL SUCC (TopROL XL) 50MG **XL** TAB PO SCH (08:29)
[2021-09-18] MEDS: LEVEMIR (INSULIN DETEMIR) 1 UNITS/0.01ML SC SCH ×2 (08:30→21:09)
[2021-09-18] MEDS: ENOXAPARIN 40MG/0.4ML SYRINGE (J1650 PER 10MG) SC SCH (08:31)
[2021-09-18] MEDS: FLUTICASONE PROP 0.05% NASAL SPRAY 16 GM (FLONASE) NARES SCH ×3 (08:31→21:00)
[2021-09-18] MEDS: PREPARATION H SUPP (HEMORRHOID) PR SCH ×2 (08:32→21:00)
[2021-09-18] MEDS: DICLOFENAC EPOLAMINE 1.3 % PATCH TOP SCH ×2 (08:33→21:10)
[2021-09-18] MEDS: LIDOCAINE 5% (LIDODERM) PATCH TD SCH ×2 (08:33→13:10)
[2021-09-18] MEDS: SODIUM CHLORIDE 0.9% INJ 10 ML SYR IV SCH (09:00)
[2021-09-18] MEDS: NORCO, ANEXSIA 5/325MG TABLET (HYDROcodone/ACETAMINOPHEN) PO PRN ×2 (10:37→23:40)
[2021-09-18 14:00] VITALS: BP 130/78
[2021-09-18 20:00] VITALS: BP 128/63
[2021-09-18] MEDS: SENNA 8.6 MG TAB (SENOKOT) PO SCH (21:08)
[2021-09-18] MEDS: **NOTE PATIENT COMMENT** MISC XX SCH (21:10)
[2021-09-19 06:00] VITALS: BP 135/72
[2021-09-19] MEDS: NORCO, ANEXSIA 5/325MG TABLET (HYDROcodone/ACETAMINOPHEN) PO SCH ×4 (06:46→20:30)
[2021-09-19 07:04] LABS: BASO % 0.3 % (0.0-1.0); EOS # 0.1 10^3/uL (0.0-0.5); EOS % 1.4 % (0.0-3.0); HEMATOCRIT 30.6 % (42.0-52.0); HEMOGLOBIN 10.5 g/dl (13.5-17.5); LYMPH # 1.7 10^3/uL (1.5-5.0); LYMPH % 18.2 % (24.0-44.0); MEAN CORPUSCULAR HEMOGLOBIN 33.1 pg (27.0-33.0); MEAN CORPUSCULAR HGB CONC 34.3 g/dl (32.0-36.5); MEAN CORPUSCULAR VOLUME 96.5 fl (80.0-96.0); MONO # 0.7 10^3/uL (0.0-0.8); MONO % 7.3 % (2.0-8.0); NEUTROPHILS # 6.6 10^3/uL (1.5-8.5); NEUTROPHILS % 70.8 % (36.0-66.0); PLATELET COUNT, AUTOMATED 118 10^3/uL (150-450); RED BLOOD COUNT 3.17 10^6/uL (4.30-6.10); WHITE BLOOD COUNT 9.3 10^3/uL (4.0-10.0)
[2021-09-19] MEDS: COMBIVENT RESPIMAT 100-20MCG INHALER 4GM INH SCH ×3 (07:24→19:52)
[2021-09-19] MEDS: DOCUSATE SODIUM 100MG CAPSULE PO SCH ×2 (08:49→20:30)
[2021-09-19] MEDS: BISACODYL 5 MG TAB PO SCH (08:49)
[2021-09-19] MEDS: FOLIC ACID 1 MG TAB PO SCH (08:49)
[2021-09-19] MEDS: GABAPENTIN 300 MG CAP PO SCH ×3 (08:49→20:29)
[2021-09-19] MEDS: LACTOBACILLUS ACIDOPHILUS CAP (BACID) PO SCH (08:49)
[2021-09-19] MEDS: THIAMINE 100 MG TAB PO SCH (08:50)
[2021-09-19] MEDS: MULTIVITAMINS/MINERALS THERAP 1 TAB PO SCH (08:50)
[2021-09-19] MEDS: PANTOPRAZOLE 40MG TAB (PROTONIX) PO SCH ×2 (08:50→20:30)
[2021-09-19] MEDS: ASCORBIC ACID 500 MG TAB PO SCH (08:51)
[2021-09-19] MEDS: METOPROLOL SUCC (TopROL XL) 50MG **XL** TAB PO SCH (08:51)
[2021-09-19] MEDS: CALCIUM CARBONATE 500 MG CHEW U/D PO SCH ×3 (08:51→20:30)
[2021-09-19] MEDS: ENOXAPARIN 40MG/0.4ML SYRINGE (J1650 PER 10MG) SC SCH (08:52)
[2021-09-19] MEDS: FLUTICASONE PROP 0.05% NASAL SPRAY 16 GM (FLONASE) NARES SCH ×2 (08:53→20:32)
[2021-09-19] MEDS: SODIUM CHLORIDE 0.9% INJ 10 ML SYR IV SCH (08:53)
[2021-09-19] MEDS: PREPARATION H SUPP (HEMORRHOID) PR SCH ×2 (08:54→20:32)
[2021-09-19] MEDS: LIDOCAINE 5% (LIDODERM) PATCH TD SCH (08:55)
[2021-09-19] MEDS: DICLOFENAC EPOLAMINE 1.3 % PATCH TOP SCH ×2 (08:55→20:31)
[2021-09-19] MEDS: LEVEMIR (INSULIN DETEMIR) 1 UNITS/0.01ML SC SCH ×2 (09:00→20:32)
[2021-09-19 14:00] VITALS: BP 135/61
[2021-09-19 20:00] VITALS: BP 138/64
[2021-09-19] MEDS: SENNA 8.6 MG TAB (SENOKOT) PO SCH (20:29)
[2021-09-19] MEDS: **NOTE PATIENT COMMENT** MISC XX SCH (20:38)
[2021-09-20] MEDS: NORCO, ANEXSIA 5/325MG TABLET (HYDROcodone/ACETAMINOPHEN) PO PRN (02:25)
[2021-09-20 06:00] VITALS: BP 127/66
[2021-09-20] MEDS: NORCO, ANEXSIA 5/325MG TABLET (HYDROcodone/ACETAMINOPHEN) PO SCH ×4 (06:32→21:13)
[2021-09-20] MEDS: COMBIVENT RESPIMAT 100-20MCG INHALER 4GM INH SCH ×3 (07:26→20:30)
[2021-09-20] MEDS: GABAPENTIN 300 MG CAP PO SCH ×3 (08:15→21:13)
[2021-09-20] MEDS: FOLIC ACID 1 MG TAB PO SCH (08:16)
[2021-09-20] MEDS: BISACODYL 5 MG TAB PO SCH (08:16)
[2021-09-20] MEDS: METOPROLOL SUCC (TopROL XL) 50MG **XL** TAB PO SCH (08:17)
[2021-09-20] MEDS: THIAMINE 100 MG TAB PO SCH (08:17)
[2021-09-20] MEDS: MULTIVITAMINS/MINERALS THERAP 1 TAB PO SCH (08:17)
[2021-09-20] MEDS: PANTOPRAZOLE 40MG TAB (PROTONIX) PO SCH ×2 (08:17→21:13)
[2021-09-20] MEDS: LACTOBACILLUS ACIDOPHILUS CAP (BACID) PO SCH (08:18)
[2021-09-20] MEDS: DOCUSATE SODIUM 100MG CAPSULE PO SCH ×2 (08:18→21:12)
[2021-09-20] MEDS: CALCIUM CARBONATE 500 MG CHEW U/D PO SCH ×3 (08:18→21:12)
[2021-09-20] MEDS: ASCORBIC ACID 500 MG TAB PO SCH (08:18)
[2021-09-20] MEDS: ENOXAPARIN 40MG/0.4ML SYRINGE (J1650 PER 10MG) SC SCH (08:18)
[2021-09-20] MEDS: SODIUM CHLORIDE 0.9% INJ 10 ML SYR IV SCH (08:21)
[2021-09-20] MEDS: FLUTICASONE PROP 0.05% NASAL SPRAY 16 GM (FLONASE) NARES SCH ×2 (08:21→21:20)
[2021-09-20] MEDS: PREPARATION H SUPP (HEMORRHOID) PR SCH ×2 (08:21→21:00)
[2021-09-20] MEDS: LIDOCAINE 5% (LIDODERM) PATCH TD SCH (08:22)
[2021-09-20] MEDS: DICLOFENAC EPOLAMINE 1.3 % PATCH TOP SCH ×2 (08:22→21:20)
[2021-09-20] MEDS: LEVEMIR (INSULIN DETEMIR) 1 UNITS/0.01ML SC SCH ×2 (09:00→21:13)
[2021-09-20] MEDS ORDERED: CALC200T15 PO (12:14)
[2021-09-20] MEDS ORDERED: CYCL5TAB PO (12:14)
[2021-09-20] MEDS ORDERED: LOVE1INJ SC (12:14)
[2021-09-20] MEDS ORDERED: PANT40TA29 PO (12:14)
[2021-09-20] MEDS ORDERED: COLA100C5 PO (12:14)
[2021-09-20] MEDS ORDERED: FLUTISP NARES (12:14)
[2021-09-20] MEDS ORDERED: HYDR-3715 PO (12:14)
[2021-09-20] MEDS ORDERED: LIDO5TD TD (12:14)
[2021-09-20] MEDS ORDERED: BISAC5TA PO (12:14)
[2021-09-20] MEDS ORDERED: SENN18TA PO (12:14)
[2021-09-20] MEDS ORDERED: GABA-282 PO (12:14)
[2021-09-20] MEDS ORDERED: DICL1PAT6 TOP (12:17)
[2021-09-20] MEDS ORDERED: DEXA2TA PO (12:17)
[2021-09-20] MEDS ORDERED: DEXA1TA PO (12:17)
[2021-09-20 14:00] VITALS: BP 109/59
[2021-09-20 20:00] VITALS: BP 136/65
[2021-09-20] MEDS: SENNA 8.6 MG TAB (SENOKOT) PO SCH (21:13)
[2021-09-20] MEDS: **NOTE PATIENT COMMENT** MISC XX SCH (21:22)
[2021-09-21] MEDS: NORCO, ANEXSIA 5/325MG TABLET (HYDROcodone/ACETAMINOPHEN) PO PRN ×2 (03:34→06:35)
[2021-09-21 06:00] VITALS: BP 128/70
[2021-09-21] MEDS: NORCO, ANEXSIA 5/325MG TABLET (HYDROcodone/ACETAMINOPHEN) PO SCH ×2 (06:35→13:02)
[2021-09-21] MEDS: COMBIVENT RESPIMAT 100-20MCG INHALER 4GM INH SCH ×2 (07:32→13:27)
[2021-09-21] MEDS: PREPARATION H SUPP (HEMORRHOID) PR SCH (09:00)
[2021-09-21] MEDS: FLUTICASONE PROP 0.05% NASAL SPRAY 16 GM (FLONASE) NARES SCH (09:00)
[2021-09-21] MEDS: LEVEMIR (INSULIN DETEMIR) 1 UNITS/0.01ML SC SCH (09:00)
[2021-09-21] MEDS: SODIUM CHLORIDE 0.9% INJ 10 ML SYR IV SCH (09:00)
[2021-09-21] MEDS: CALCIUM CARBONATE 500 MG CHEW U/D PO SCH (09:54)
[2021-09-21] MEDS: PANTOPRAZOLE 40MG TAB (PROTONIX) PO SCH (09:55)
[2021-09-21] MEDS: BISACODYL 5 MG TAB PO SCH (09:55)
[2021-09-21] MEDS: FOLIC ACID 1 MG TAB PO SCH (09:55)
[2021-09-21] MEDS: DOCUSATE SODIUM 100MG CAPSULE PO SCH (09:55)
[2021-09-21] MEDS: LACTOBACILLUS ACIDOPHILUS CAP (BACID) PO SCH (09:55)
[2021-09-21] MEDS: GABAPENTIN 300 MG CAP PO SCH (09:55)
[2021-09-21] MEDS: THIAMINE 100 MG TAB PO SCH (09:55)
[2021-09-21] MEDS: MULTIVITAMINS/MINERALS THERAP 1 TAB PO SCH (09:55)
[2021-09-21] MEDS: ASCORBIC ACID 500 MG TAB PO SCH (09:55)
[2021-09-21 09:56] VITALS: BP 128/70
[2021-09-21] MEDS: METOPROLOL SUCC (TopROL XL) 50MG **XL** TAB PO SCH (09:56)
[2021-09-21] MEDS: ENOXAPARIN 40MG/0.4ML SYRINGE (J1650 PER 10MG) SC SCH (09:57)
[2021-09-21] MEDS: LIDOCAINE 5% (LIDODERM) PATCH TD SCH (09:58)
[2021-09-21] MEDS: DICLOFENAC EPOLAMINE 1.3 % PATCH TOP SCH (09:58)
== END 2021-09-21 13:15 | DRG 41 ==
LOC: M PM&R 15:57 → EEVIPCON 15:57
PROVIDERS: ADMIT Physical Medicine & Rehabilitation; ATTEND Physical Medicine & Rehabilitation
DX: C79.31 Secondary malignant neoplasm of brain (principal); C78.7 Secondary malignant neoplasm of liver and intrahepatic bile duct; C78.00 Secondary malignant neoplasm of unspecified lung; C18.9 Malignant neoplasm of colon, unspecified; I10 Essential (primary) hypertension; D72.829 Elevated white blood cell count, unspecified; G47.33 Obstructive sleep apnea (adult) (pediatric); F10.10 Alcohol abuse, uncomplicated; G89.3 Neoplasm related pain (acute) (chronic); Z79.899 Other long term (current) drug therapy; Z88.2 Allergy status to sulfonamides; M54.59 Other low back pain; S82.491D Other fracture of shaft of right fibula, subsequent encounter for closed fracture with routine healing; W18.30XD Fall on same level, unspecified, subsequent encounter; R73.9 Hyperglycemia, unspecified; Z79.52 Long term (current) use of systemic steroids; Z92.21 Personal history of antineoplastic chemotherapy

== ENCOUNTER 2021-09-11 11:30 | Outpatient (RCR) | payer OTHER ==
[~2021-09-11 11:30] MED LIST changes: +DEXA1TA PO; +FOLI1TAB11 PO; +PANT40TA29 PO; +RISATAB3 PO; +THIA100TA PO
[2021-09-20] MEDS ORDERED: LIDO5TD TD (12:14)
[2021-09-20] MEDS ORDERED: SENN18TA PO (12:14)
[2021-09-20] MEDS ORDERED: BISAC5TA PO (12:14)
[2021-09-20] MEDS ORDERED: FLUTISP NARES (12:14)
[2021-09-20] MEDS ORDERED: LOVE1INJ SC (12:14)
[2021-09-20] MEDS ORDERED: HYDR-3715 PO (12:14)
[2021-09-20] MEDS ORDERED: GABA-282 PO (12:14)
[2021-09-20] MEDS ORDERED: COLA100C5 PO (12:14)
[2021-09-20] MEDS ORDERED: CALC200T15 PO (12:14)
[2021-09-20] MEDS ORDERED: CYCL5TAB PO (12:14)
[2021-09-20] MEDS ORDERED: PANT40TA29 PO (12:14)
[2021-09-20] MEDS ORDERED: DEXA1TA PO (12:17)
[2021-09-20] MEDS ORDERED: DICL1PAT6 TOP (12:17)
[2021-09-20] MEDS ORDERED: DEXA2TA PO (12:17)
== END 2021-09-29 | disposition home or self-care (01) ==
LOC: M ONCR 11:30
PROVIDERS: ATTEND General Practice
DX: C79.31 Secondary malignant neoplasm of brain (principal); Z53.09 Procedure and treatment not carried out because of other contraindication

== ENCOUNTER → 2021-09-24 | Outpatient (CLI) | payer MEDICAID, MEDICARE, OTHER ==
[~2021-09-24] MED LIST changes: +BISAC5TA PO; +CALC200T15 PO; +CYCL5TAB PO; +DEXA2TA PO; +DICL1PAT6 TOP; +FLUTISP NARES; +GABA-282 PO; +HYDR-3715 PO; +LIDO5TD TD; +LOVE1INJ SC; +SENN18TA PO
== END ==
LOC: M RAD 08:55
PROVIDERS: ATTEND Internal Medicine
DX: C79.31 Secondary malignant neoplasm of brain (principal); R20.2 Paresthesia of skin

== ENCOUNTER → 2021-09-25 | Outpatient (CLI) | payer OTHER | LOC: M ONCR 11:08 | PROVIDERS: ATTEND General Practice | DX: C79.31 Secondary malignant neoplasm of brain (principal); G81.04 Flaccid hemiplegia affecting left nondominant side; R53.1 Weakness; Z92.3 Personal history of irradiation ==

== ENCOUNTER → 2021-09-30 | Outpatient (CLI) | payer OTHER | LOC: M ONCR 10:41 | PROVIDERS: ATTEND General Practice | DX: R60.9 Edema, unspecified (principal) ==

== ENCOUNTER → 2021-10-05 | Outpatient (REF) | payer OTHER | LOC: SKLAB4 09:28 | PROVIDERS: ATTEND Nurse Practitioner Family | DX: M79.89 Other specified soft tissue disorders (principal); M77.31 Calcaneal spur, right foot ==

== ENCOUNTER → 2021-10-07 | Outpatient (CLI) | payer OTHER, SELFPAY | LOC: M ONCR 09:33 | PROVIDERS: ATTEND General Practice | DX: M62.81 Muscle weakness (generalized) (principal) ==

== ENCOUNTER → 2021-10-21 | Outpatient (CLI) | payer OTHER ==
[~2021-10-21] MED LIST changes: +FURO20TA2 PO
== END ==
LOC: M ONCR 08:51
PROVIDERS: ATTEND General Practice
DX: R22.43 Localized swelling, mass and lump, lower limb, bilateral (principal); R22.0 Localized swelling, mass and lump, head; R63.5 Abnormal weight gain; Z88.1 Allergy status to other antibiotic agents; Z88.2 Allergy status to sulfonamides; Z79.899 Other long term (current) drug therapy; Z79.52 Long term (current) use of systemic steroids; Z92.21 Personal history of antineoplastic chemotherapy

== ENCOUNTER → 2021-10-28 | Outpatient (CLI) | payer OTHER ==
[~2021-10-28] MED LIST changes: +GASTROGRAFIN SOLUTION 30ML (Q9963) As Ordered ONE; +ISOVUE-370 76% 100ML VIAL As Ordered ONE
== END ==
LOC: M RAD 15:48
PROVIDERS: ATTEND Specialist
DX: C18.9 Malignant neoplasm of colon, unspecified (principal)
CPT/HCPCS: 71260; 74177; J1642; Q9963; Q9967

== ENCOUNTER → 2021-11-04 | Outpatient (CLI) | payer MEDICAID ==
[~2021-11-04] MED LIST changes: -GASTROGRAFIN SOLUTION 30ML (Q9963) As Ordered ONE; -ISOVUE-370 76% 100ML VIAL As Ordered ONE
== END ==
LOC: M ONCR 10:18
PROVIDERS: ATTEND General Practice
DX: R60.0 Localized edema (principal)

== ENCOUNTER → 2021-11-12 | Outpatient (CLI) | payer OTHER ==
[~2021-11-12] VITALS: Ht 172.7 cm; Wt 144.6 kg
[~2021-11-12] MED LIST changes: +HYDR-4517 PO
[2021-11-12 14:22] VITALS: BP 104/61
== END ==
LOC: M PAL 14:02
PROVIDERS: ATTEND Nurse Practitioner Family
DX: C18.9 Malignant neoplasm of colon, unspecified (principal); C77.9 Secondary and unspecified malignant neoplasm of lymph node, unspecified; C78.7 Secondary malignant neoplasm of liver and intrahepatic bile duct; C78.00 Secondary malignant neoplasm of unspecified lung; C79.31 Secondary malignant neoplasm of brain; I10 Essential (primary) hypertension; G89.29 Other chronic pain; M54.50 Low back pain, unspecified; M79.662 Pain in left lower leg; M79.661 Pain in right lower leg; M79.671 Pain in right foot; M79.672 Pain in left foot; M25.571 Pain in right ankle and joints of right foot; S82.401S Unspecified fracture of shaft of right fibula, sequela; I87.8 Other specified disorders of veins; G58.9 Mononeuropathy, unspecified; E66.01 Morbid (severe) obesity due to excess calories; G47.33 Obstructive sleep apnea (adult) (pediatric); M62.81 Muscle weakness (generalized); Z92.21 Personal history of antineoplastic chemotherapy; Z92.3 Personal history of irradiation; Z79.01 Long term (current) use of anticoagulants; Z79.4 Long term (current) use of insulin; Z79.899 Other long term (current) drug therapy; Z79.891 Long term (current) use of opiate analgesic; Z88.2 Allergy status to sulfonamides; Z88.1 Allergy status to other antibiotic agents

== ENCOUNTER → 2021-12-25 | Outpatient (CLI) | payer MEDICAID, OTHER ==
[~2021-12-25] MED LIST changes: +PROHANCE 279.3MG/ML 15ML VIAL As Ordered ONE; +PROHANCE 279.3MG/ML 5ML VIAL As Ordered ONE
== END ==
LOC: M RAD 08:47
PROVIDERS: ATTEND General Practice
DX: C79.31 Secondary malignant neoplasm of brain (principal)
CPT/HCPCS: 70553; A9576

== ENCOUNTER → 2021-12-29 | Outpatient (CLI) | payer OTHER ==
[~2021-12-29] VITALS: Ht 172.7 cm; Wt 147.2 kg
[~2021-12-29] MED LIST changes: -PROHANCE 279.3MG/ML 15ML VIAL As Ordered ONE; -PROHANCE 279.3MG/ML 5ML VIAL As Ordered ONE
[2021-12-29 13:10] VITALS: BP 142/85
== END ==
LOC: M ONCR 11:01
PROVIDERS: ATTEND General Practice
DX: C18.7 Malignant neoplasm of sigmoid colon (principal); C79.31 Secondary malignant neoplasm of brain

== ENCOUNTER → 2021-12-29 | Outpatient (CLI) | payer OTHER ==
[~2021-12-29] MED LIST changes: +ALBU6.7H6 INH; +AMOX875T2 PO; +INSU100V12 SC; +LIDO1PAD TOP; +LOMO2.5T PO; +NYST1POW9 TOP; +SENN8.6T28 PO; +TUMS500C PO; +VITMTA PO
== END ==
LOC: M PAL 11:00
PROVIDERS: ATTEND Nurse Practitioner Adult Health
DX: C18.9 Malignant neoplasm of colon, unspecified (principal); C78.00 Secondary malignant neoplasm of unspecified lung; C79.31 Secondary malignant neoplasm of brain; C77.9 Secondary and unspecified malignant neoplasm of lymph node, unspecified; C78.7 Secondary malignant neoplasm of liver and intrahepatic bile duct; I10 Essential (primary) hypertension; M54.50 Low back pain, unspecified; G89.29 Other chronic pain; Z79.4 Long term (current) use of insulin; Z79.899 Other long term (current) drug therapy; Z79.51 Long term (current) use of inhaled steroids; Z88.1 Allergy status to other antibiotic agents; Z88.2 Allergy status to sulfonamides; Z82.49 Family history of ischemic heart disease and other diseases of the circulatory system; Z83.3 Family history of diabetes mellitus; Z84.1 Family history of disorders of kidney and ureter

== ENCOUNTER → 2022-01-28 | Outpatient (CLI) | payer OTHER ==
[~2022-01-28] MED LIST changes: -ALBU6.7H6 INH; -AMOX875T2 PO; -INSU100V12 SC; -LIDO1PAD TOP; -LOMO2.5T PO; -NYST1POW9 TOP; -SENN8.6T28 PO; -TUMS500C PO; -VITMTA PO
== END ==
LOC: M RAD 11:57
PROVIDERS: ATTEND Specialist
DX: R13.10 Dysphagia, unspecified (principal); C18.9 Malignant neoplasm of colon, unspecified

== ENCOUNTER → 2022-02-02 | Outpatient (CLI) | payer OTHER | LOC: M ONCR 12:05 | PROVIDERS: ATTEND General Practice | DX: R53.1 Weakness (principal); R27.8 Other lack of coordination; Z79.52 Long term (current) use of systemic steroids ==

== ENCOUNTER → 2022-02-03 | Outpatient (CLI) | payer OTHER ==
[~2022-02-03] MED LIST changes: +GASTROGRAFIN SOLUTION 30ML (Q9963) As Ordered ONE; +ISOVUE-370 76% 100ML VIAL As Ordered ONE
== END ==
LOC: M RAD 10:48
PROVIDERS: ATTEND Nurse Practitioner
DX: C18.9 Malignant neoplasm of colon, unspecified (principal)
CPT/HCPCS: 71260; 74177; J1642; Q9963; Q9967

== ENCOUNTER → 2022-02-18 | Outpatient (REF) | payer OTHER, MEDICAID ==
[~2022-02-18] MED LIST changes: +ALBU6.7H6 INH; +AMOX875T2 PO; -GASTROGRAFIN SOLUTION 30ML (Q9963) As Ordered ONE; +INSU100V12 SC; -ISOVUE-370 76% 100ML VIAL As Ordered ONE; +LIDO1PAD TOP; +SENN8.6T28 PO; +TUMS500C PO; +VITMTA PO
== END ==
LOC: M LAB REF 14:12
PROVIDERS: ATTEND Podiatrist
DX: L03.119 Cellulitis of unspecified part of limb (principal)

== ENCOUNTER → 2022-02-18 | Outpatient (CLI) | payer OTHER | LOC: M ONCR 13:34 | PROVIDERS: ATTEND General Practice | DX: C18.7 Malignant neoplasm of sigmoid colon (principal); C79.31 Secondary malignant neoplasm of brain; E24.2 Drug-induced Cushing's syndrome; G93.6 Cerebral edema; Z79.4 Long term (current) use of insulin; Z79.51 Long term (current) use of inhaled steroids; Z79.52 Long term (current) use of systemic steroids; Z79.891 Long term (current) use of opiate analgesic; Z88.1 Allergy status to other antibiotic agents; Z88.2 Allergy status to sulfonamides; Z92.3 Personal history of irradiation ==

== ENCOUNTER 2022-02-22 16:30 | Inpatient (IN) | payer OTHER ==
[~2022-02-22] VITALS: Ht 170.2 cm; Wt 149.0 kg
[~2022-02-22 16:30] MED LIST changes: -AMOX875T2 PO; -INSU100V12 SC; -LIDO1PAD TOP; -SENN8.6T28 PO; -TUMS500C PO; -VITMTA PO
[2022-02-22] MEDS ORDERED: AMOX875T2 PO (16:57)
[2022-02-22] MEDS ORDERED: SODIUM CHLORIDE 0.9% INJ 10 ML SYR IV PRN (23:10)
[2022-02-23 00:24] LABS: HEMATOCRIT 36.6 % (42.0-52.0); HEMOGLOBIN 12.3 g/dl (13.5-17.5); MEAN CORPUSCULAR HEMOGLOBIN 32.2 pg (27.0-33.0); MEAN CORPUSCULAR HGB CONC 33.6 g/dl (32.0-36.5); MEAN CORPUSCULAR VOLUME 95.8 fl (80.0-96.0); PLATELET COUNT, AUTOMATED 117 10^3/uL (150-450); RED BLOOD COUNT 3.82 10^6/uL (4.30-6.10)
[2022-02-23 00:25] LABS: BLOOD UREA NITROGEN 19 MG/DL (7-18); CARBON DIOXIDE LEVEL 26 MEQ/L (21-32); CHLORIDE LEVEL 106 MEQ/L (98-107); CREATININE FOR GFR 0.78 MG/DL (0.70-1.30); GLOMERULAR FILTRATION RATE > 60.0 (>49); GLUCOSE, FASTING 89 MG/DL (70-100); POTASSIUM SERUM 4.2 MEQ/L (3.5-5.1); SODIUM LEVEL 138 MEQ/L (136-145)
[2022-02-23 00:32] LABS: RSV AMPLIFICATION NEGATIVE (NEGATIVE)
[2022-02-23 01:07] LABS: ERYTHROCYTE SEDIMENTATION RATE 70 mm/hr (0-20)
[2022-02-23] MEDS ORDERED: ERTAPENEM SODIUM 1 GM in NS MINI-BAG PLUS 50 ML IV SCH (03:00)
[2022-02-23] MEDS ORDERED: GLUCOSE 4GM CHEW TABLET PO PRN (03:15)
[2022-02-23] MEDS ORDERED: DEXTROSE 50% 50 ML SYRINGE IV PRN (03:15)
[2022-02-23] MEDS ORDERED: ACETAMINOPHEN TAB 650MG DOSE (2X325MG) PO PRN (03:15)
[2022-02-23] MEDS ORDERED: GLUCAGON INJ 1MG VIAL SC PRN (03:15)
[2022-02-23] MEDS ORDERED: TUMS500C PO (03:34)
[2022-02-23] MEDS ORDERED: ALBU8.5H INH (03:34)
[2022-02-23] MEDS ORDERED: INSU100V12 SC (03:43)
[2022-02-23] MEDS ORDERED: SENN8.6T28 PO (03:43)
[2022-02-23] MEDS ORDERED: LIDO1PAD TOP (03:43)
[2022-02-23] MEDS ORDERED: METF10004 PO (03:43)
[2022-02-23] MEDS ORDERED: VITATAB73 PO (03:43)
[2022-02-23] MEDS ORDERED: GABA-282 PO ×2 (03:43)
[2022-02-23] MEDS ORDERED: VITMTA PO (03:43)
[2022-02-23] MEDS ORDERED: MELO15TA28 PO (03:43)
[2022-02-23] MEDS ORDERED: HOME MED LIST COMPLETE! XX SCH (03:45)
[2022-02-23] MEDS: HEPARIN SOD (PORCINE) 5000UNITS/ML 1ML VIAL/SYRINGE SC SCH ×3 (06:30→21:38)
[2022-02-23] MEDS: INSULIN LISPRO (NovoLOG) PER UNIT SC SCH ×4 (07:30→21:39)
[2022-02-23] MEDS: MELOXICAM (MOBIC) 7.5 MG TAB PO SCH (09:00)
[2022-02-23] MEDS: ASCORBIC ACID 500 MG TAB PO SCH (09:00)
[2022-02-23] MEDS: DICLOFENAC EPOLAMINE 1.3 % PATCH TOP SCH (09:00)
[2022-02-23] MEDS ORDERED: SENNA 8.6 MG TAB (SENOKOT) PO PRN (10:45)
[2022-02-23] MEDS ORDERED: LIDOCAINE 5% (LIDODERM) PATCH TOP PRN (10:45)
[2022-02-23] MEDS ORDERED: DOCUSATE SODIUM 100MG CAPSULE PO PRN (10:45)
[2022-02-23] MEDS ORDERED: CALCIUM CARBONATE 500 MG CHEW U/D PO PRN (10:45)
[2022-02-23] MEDS ORDERED: ALBUTEROL 90 MCG/ACT 8GM HFA INHALER INH PRN (10:45)
[2022-02-23] MEDS ORDERED: HYDROMORPHONE HCL 0.5 MG/ 0.5 ML SYRINGE (J1170 PER 1) IV ONE (10:50)
[2022-02-23] MEDS: VANCOMYCIN HCL 1,000 MG, VIAL MATE ADAPTER 1 EACH in D5W 250 ML IV SCH ×2 (11:53→12:00)
[2022-02-23] MEDS: METOPROLOL SUCC (TopROL XL) 50MG **XL** TAB PO SCH (13:21)
[2022-02-23] MEDS: ANEXSIA, NORCO 7.5MG/325MG TABLET(HYDROCODONE/APAP) PO SCH ×3 (13:23→21:37)
[2022-02-23] MEDS ORDERED: VANCOMYCIN HCL 1,000 MG, VIAL MATE ADAPTER 1 EACH in D5W 250 ML IV SCH (16:00)
[2022-02-23] MEDS: GABAPENTIN 300 MG CAP PO SCH ×2 (16:25→21:36)
[2022-02-23 17:50] VITALS: BP 130/74
[2022-02-23] MEDS ORDERED: PIPERACILLIN/TAZOBACTAM SOD 4.5 GM in D5W MINI-BAG PLUS 50 ML IV SCH (18:00)
[2022-02-23 20:30] VITALS: BP 109/62
[2022-02-23] MEDS: VANCOMYCIN HCL 1,000 MG, VIAL MATE ADAPTER 1 EACH in NS 250 ML IV SCH (21:38)
[2022-02-23] MEDS: SODIUM CHLORIDE 0.9% INJ 10 ML SYR IV PRN ×2 (21:54→23:01)
[2022-02-24] MEDS: DICLOFENAC EPOLAMINE 1.3 % PATCH TOP SCH ×3 (01:08→22:08)
[2022-02-24 04:50] VITALS: BP 131/83
[2022-02-24] MEDS: HEPARIN SOD (PORCINE) 5000UNITS/ML 1ML VIAL/SYRINGE SC SCH ×3 (05:36→22:07)
[2022-02-24] MEDS: VANCOMYCIN HCL 1,000 MG, VIAL MATE ADAPTER 1 EACH in NS 250 ML IV SCH ×3 (05:46→22:07)
[2022-02-24] MEDS: ERTAPENEM SODIUM 1 GM in NS MINI-BAG PLUS 50 ML IV SCH (07:59)
[2022-02-24] MEDS: ANEXSIA, NORCO 7.5MG/325MG TABLET(HYDROCODONE/APAP) PO SCH ×4 (09:04→22:05)
[2022-02-24] MEDS: ASCORBIC ACID 500 MG TAB PO SCH (09:04)
[2022-02-24] MEDS: GABAPENTIN 300 MG CAP PO SCH ×2 (09:04→22:06)
[2022-02-24] MEDS: MULTIVITAMINS/MINERALS THERAP 1 TAB PO SCH (09:04)
[2022-02-24] MEDS: METOPROLOL SUCC (TopROL XL) 50MG **XL** TAB PO SCH (09:05)
[2022-02-24] MEDS: MELOXICAM (MOBIC) 7.5 MG TAB PO SCH (09:06)
[2022-02-24] MEDS: INSULIN LISPRO (NovoLOG) PER UNIT SC SCH ×4 (09:09→22:07)
[2022-02-24] MEDS: SODIUM CHLORIDE 0.9% INJ 10 ML SYR IV SCH (10:05)
[2022-02-24 10:46] LABS: HEMATOCRIT 36.7 % (42.0-52.0); HEMOGLOBIN 12.1 g/dl (13.5-17.5); MEAN CORPUSCULAR HEMOGLOBIN 32.2 pg (27.0-33.0); MEAN CORPUSCULAR VOLUME 97.6 fl (80.0-96.0); PLATELET COUNT, AUTOMATED 118 10^3/uL (150-450); RED BLOOD COUNT 3.76 10^6/uL (4.30-6.10); WHITE BLOOD COUNT 9.3 10^3/uL (4.0-10.0)
[2022-02-24 11:11] LABS: BLOOD UREA NITROGEN 19 MG/DL (7-18); CALCIUM LEVEL 8.6 MG/DL (8.8-10.2); CARBON DIOXIDE LEVEL 27 MEQ/L (21-32); CHLORIDE LEVEL 106 MEQ/L (98-107); CREATININE FOR GFR 0.79 MG/DL (0.70-1.30); GLOMERULAR FILTRATION RATE > 60.0 (>49); GLUCOSE, FASTING 134 MG/DL (70-100); POTASSIUM SERUM 3.9 MEQ/L (3.5-5.1); SODIUM LEVEL 139 MEQ/L (136-145)
[2022-02-24 13:55] VITALS: BP 111/64
[2022-02-24] MEDS: SODIUM CHLORIDE 0.9% INJ 10 ML SYR IV PRN ×2 (14:40→23:24)
[2022-02-24 22:00] VITALS: BP 135/68
[2022-02-25] MEDS: VANCOMYCIN HCL 1,000 MG, VIAL MATE ADAPTER 1 EACH in NS 250 ML IV SCH (04:43)
[2022-02-25] MEDS: ERTAPENEM SODIUM 1 GM in NS MINI-BAG PLUS 50 ML IV SCH (05:57)
[2022-02-25] MEDS: HEPARIN SOD (PORCINE) 5000UNITS/ML 1ML VIAL/SYRINGE SC SCH ×3 (05:58→21:21)
[2022-02-25 06:00] VITALS: BP 169/69
[2022-02-25] MEDS: SODIUM CHLORIDE 0.9% INJ 10 ML SYR IV PRN (06:40)
[2022-02-25] MEDS ORDERED: FLUBLOK(EGG FREE)(QUAD)INFLUENZA VACC 0.5ML SYRINGE 18YRS & OLDER IM.IMMUN ONE (09:00)
[2022-02-25] MEDS: MULTIVITAMINS/MINERALS THERAP 1 TAB PO SCH (09:53)
[2022-02-25] MEDS: GABAPENTIN 300 MG CAP PO SCH ×2 (09:53→21:20)
[2022-02-25] MEDS: ASCORBIC ACID 500 MG TAB PO SCH (09:53)
[2022-02-25] MEDS: ANEXSIA, NORCO 7.5MG/325MG TABLET(HYDROCODONE/APAP) PO SCH ×4 (09:53→21:21)
[2022-02-25] MEDS: MELOXICAM (MOBIC) 7.5 MG TAB PO SCH (09:53)
[2022-02-25] MEDS: INSULIN LISPRO (NovoLOG) PER UNIT SC SCH ×4 (09:54→20:29)
[2022-02-25] MEDS: DICLOFENAC EPOLAMINE 1.3 % PATCH TOP SCH ×2 (09:54→21:21)
[2022-02-25] MEDS: SODIUM CHLORIDE 0.9% INJ 10 ML SYR IV SCH (09:54)
[2022-02-25] MEDS: METOPROLOL SUCC (TopROL XL) 50MG **XL** TAB PO SCH (10:00)
[2022-02-25] MEDS: AMPICILLIN SOD 2 GM in D5W MINI-BAG PLUS 100 ML IV SCH ×3 (12:00→23:07)
[2022-02-25 14:00] VITALS: BP 135/75
[2022-02-25] MEDS ORDERED: HYDROMORPHONE HCL 0.5 MG/ 0.5 ML SYRINGE (J1170 PER 1) IV ONE (14:15)
[2022-02-25] MEDS ORDERED: KETOROLAC 30 MG/ML 1ML VIAL IV ONE (14:45)
[2022-02-25 15:36] LABS: BASO % 0.3 % (0.0-1.0); EOS % 0.6 % (0.0-3.0); HEMATOCRIT 33.4 % (42.0-52.0); LYMPH # 0.7 10^3/uL (1.5-5.0); LYMPH % 9.4 % (24.0-44.0); MEAN CORPUSCULAR HEMOGLOBIN 32.2 pg (27.0-33.0); MEAN CORPUSCULAR HGB CONC 32.9 g/dl (32.0-36.5); MEAN CORPUSCULAR VOLUME 97.7 fl (80.0-96.0); MONO # 0.5 10^3/uL (0.0-0.8); MONO % 6.2 % (2.0-8.0); RED BLOOD COUNT 3.42 10^6/uL (4.30-6.10); WHITE BLOOD COUNT 7.3 10^3/uL (4.0-10.0)
[2022-02-25 16:19] LABS: PLATELET COUNT, AUTOMATED 98 10^3/uL (150-450)
[2022-02-25 16:31] LABS: BLOOD UREA NITROGEN 20 MG/DL (7-18); C REACTIVE PROTEIN QUANTITATIV 1.85 MG/DL (0.00-0.30); CALCIUM LEVEL 8.4 MG/DL (8.8-10.2); CARBON DIOXIDE LEVEL 24 MEQ/L (21-32); CHLORIDE LEVEL 109 MEQ/L (98-107); CREATININE FOR GFR 0.84 MG/DL (0.70-1.30); GLOMERULAR FILTRATION RATE > 60.0 (>49); GLUCOSE, FASTING 166 MG/DL (70-100); POTASSIUM SERUM 4.1 MEQ/L (3.5-5.1); SODIUM LEVEL 138 MEQ/L (136-145)
[2022-02-25 17:02] LABS: ERYTHROCYTE SEDIMENTATION RATE 56 mm/hr (0-20)
[2022-02-26] MEDS: ERTAPENEM SODIUM 1 GM in NS MINI-BAG PLUS 50 ML IV SCH (05:13)
[2022-02-26] MEDS: AMPICILLIN SOD 2 GM in D5W MINI-BAG PLUS 100 ML IV SCH ×2 (05:14→12:00)
[2022-02-26] MEDS: HEPARIN SOD (PORCINE) 5000UNITS/ML 1ML VIAL/SYRINGE SC SCH ×2 (05:43→14:00)
[2022-02-26 06:00] VITALS: BP 144/79
[2022-02-26] MEDS: DICLOFENAC EPOLAMINE 1.3 % PATCH TOP SCH (08:04)
[2022-02-26] MEDS: INSULIN LISPRO (NovoLOG) PER UNIT SC SCH ×2 (08:05→12:55)
[2022-02-26 08:09] VITALS: BP 155/86
[2022-02-26] MEDS: ASCORBIC ACID 500 MG TAB PO SCH (08:09)
[2022-02-26] MEDS: MELOXICAM (MOBIC) 7.5 MG TAB PO SCH (08:09)
[2022-02-26] MEDS: ANEXSIA, NORCO 7.5MG/325MG TABLET(HYDROCODONE/APAP) PO SCH ×2 (08:10→12:54)
[2022-02-26] MEDS: MULTIVITAMINS/MINERALS THERAP 1 TAB PO SCH (08:11)
[2022-02-26] MEDS: METOPROLOL SUCC (TopROL XL) 50MG **XL** TAB PO SCH (08:11)
[2022-02-26] MEDS: GABAPENTIN 300 MG CAP PO SCH (08:11)
[2022-02-26] MEDS: SODIUM CHLORIDE 0.9% INJ 10 ML SYR IV SCH (08:12)
== END 2022-02-26 16:46 | disposition home or self-care (01) | DRG 197 ==
LOC: M ED 16:30 → M ED INP 16:31 → OBSVTOIN 02-23 07:40 → ENRESERV 02-23 15:48 → M MSPAV 02-23 17:48
PROVIDERS: ADMIT Internal Medicine; ATTEND General Practice
DX: I87.2 Venous insufficiency (chronic) (peripheral) (principal); D69.6 Thrombocytopenia, unspecified; C78.7 Secondary malignant neoplasm of liver and intrahepatic bile duct; C79.31 Secondary malignant neoplasm of brain; Z68.43 Body mass index [BMI] 50.0-59.9, adult; C18.9 Malignant neoplasm of colon, unspecified; E66.01 Morbid (severe) obesity due to excess calories; L97.929 Non-pressure chronic ulcer of unspecified part of left lower leg with unspecified severity; L97.919 Non-pressure chronic ulcer of unspecified part of right lower leg with unspecified severity; E11.9 Type 2 diabetes mellitus without complications; I89.0 Lymphedema, not elsewhere classified; Z88.2 Allergy status to sulfonamides; Z79.899 Other long term (current) drug therapy; Z79.4 Long term (current) use of insulin; B96.1 Klebsiella pneumoniae [K. pneumoniae] as the cause of diseases classified elsewhere

== ENCOUNTER 2022-02-26 14:50 | Outpatient (RCR) | payer OTHER ==
[~2022-02-26 14:50] MED LIST changes: +AMOX875T2 PO; +INSU100V12 SC; +LIDO1PAD TOP; +SENN8.6T28 PO; +TUMS500C PO; +VITMTA PO
[2022-03-09] MEDS ORDERED: HYDR-4517 PO (11:47)
[2022-03-09] MEDS ORDERED: TRAM50TA2 PO (11:47)
[2022-03-09] MEDS ORDERED: GABA-282 PO (11:47)
[2022-03-09] MEDS ORDERED: LIDO1PAD TOP (11:54)
[2022-03-09] MEDS ORDERED: NYST1POW9 TOP (11:54)
[2022-03-09] MEDS ORDERED: DEXA2TA PO (12:04)
== END 2022-03-01 ==
LOC: M ONCR 14:50
PROVIDERS: ATTEND General Practice
DX: C79.51 Secondary malignant neoplasm of bone (principal)

== ENCOUNTER → 2022-03-09 | Outpatient (CLI) | payer OTHER, MEDICAID ==
[~2022-03-09] VITALS: Ht 170.2 cm; Wt 151.0 kg
[~2022-03-09] MED LIST changes: +NYST1POW9 TOP
[2022-03-09 10:57] VITALS: BP 110/71
== END ==
LOC: M PAL 10:34
PROVIDERS: ATTEND Nurse Practitioner Adult Health
DX: C18.9 Malignant neoplasm of colon, unspecified (principal); C79.31 Secondary malignant neoplasm of brain; C78.7 Secondary malignant neoplasm of liver and intrahepatic bile duct; C78.00 Secondary malignant neoplasm of unspecified lung; C79.89 Secondary malignant neoplasm of other specified sites; E66.01 Morbid (severe) obesity due to excess calories; G47.33 Obstructive sleep apnea (adult) (pediatric); G90.09 Other idiopathic peripheral autonomic neuropathy; I10 Essential (primary) hypertension; K12.30 Oral mucositis (ulcerative), unspecified; M54.50 Low back pain, unspecified; M62.81 Muscle weakness (generalized); N32.81 Overactive bladder; R41.89 Other symptoms and signs involving cognitive functions and awareness; R21 Rash and other nonspecific skin eruption; Z92.21 Personal history of antineoplastic chemotherapy; R19.7 Diarrhea, unspecified; R11.0 Nausea; Z92.3 Personal history of irradiation; Z51.5 Encounter for palliative care; Z88.2 Allergy status to sulfonamides; Z79.891 Long term (current) use of opiate analgesic; Z79.899 Other long term (current) drug therapy; Z79.51 Long term (current) use of inhaled steroids; Z80.1 Family history of malignant neoplasm of trachea, bronchus and lung

== ENCOUNTER 2022-03-12 11:45 | Outpatient (RCR) | payer OTHER, MEDICAID ==
[2022-03-17] MEDS ORDERED: LOMO2.5T PO (11:19)
[2022-03-18] MEDS ORDERED: LOMO2.5T PO (14:13)
[2022-03-18] MEDS ORDERED: GABA-282 PO ×2 (16:48→16:51)
[2022-03-19] MEDS ORDERED: DEXA1TA PO (13:33)
[2022-04-01] MEDS ORDERED: HYDR-4517 PO (14:20)
[2022-04-01] MEDS ORDERED: GABA-282 PO ×2 (17:09)
[2022-04-02] MEDS ORDERED: LOMO2.5T PO (14:44)
== END 2022-03-31 ==
LOC: M ONCR 11:45
PROVIDERS: ATTEND Radiology Radiation Oncology
DX: C79.51 Secondary malignant neoplasm of bone (principal); C18.7 Malignant neoplasm of sigmoid colon

== ENCOUNTER → 2022-03-15 | Outpatient (CLI) | payer OTHER ==
[~2022-03-15] MED LIST changes: +PROHANCE 279.3MG/ML 15ML VIAL As Ordered ONE; +PROHANCE 279.3MG/ML 5ML VIAL As Ordered ONE
== END ==
LOC: M RAD 12:28 → EEVIPCON 13:00
PROVIDERS: ATTEND General Practice
DX: C79.31 Secondary malignant neoplasm of brain (principal); C18.7 Malignant neoplasm of sigmoid colon
CPT/HCPCS: 70553; A9576

== ENCOUNTER → 2022-03-19 | Outpatient (CLI) | payer OTHER, MEDICAID ==
[~2022-03-19] MED LIST changes: +LOMO2.5T PO; -PROHANCE 279.3MG/ML 15ML VIAL As Ordered ONE; -PROHANCE 279.3MG/ML 5ML VIAL As Ordered ONE
== END ==
LOC: M ONCR 13:20
PROVIDERS: ATTEND General Practice
DX: C18.9 Malignant neoplasm of colon, unspecified (principal); C79.31 Secondary malignant neoplasm of brain; Z99.3 Dependence on wheelchair; Z79.52 Long term (current) use of systemic steroids

== ENCOUNTER → 2022-04-09 | Outpatient (CLI) | payer OTHER ==
[~2022-04-09] MED LIST changes: +TRAZ-257 PO
== END ==
LOC: M ONCR 12:01
PROVIDERS: ATTEND General Practice
DX: C79.31 Secondary malignant neoplasm of brain (principal); L97.909 Non-pressure chronic ulcer of unspecified part of unspecified lower leg with unspecified severity; Z79.52 Long term (current) use of systemic steroids; Z79.891 Long term (current) use of opiate analgesic; Z92.3 Personal history of irradiation

== ENCOUNTER → 2022-05-04 | Outpatient (CLI) | payer OTHER, MEDICAID ==
[~2022-05-04] MED LIST changes: +TRAZ-189 PO
== END ==
LOC: M PAL 07:39
PROVIDERS: ATTEND Nurse Practitioner Adult Health
DX: C18.9 Malignant neoplasm of colon, unspecified (principal); I87.313 Chronic venous hypertension (idiopathic) with ulcer of bilateral lower extremity; L97.812 Non-pressure chronic ulcer of other part of right lower leg with fat layer exposed; L97.822 Non-pressure chronic ulcer of other part of left lower leg with fat layer exposed; L89.152 Pressure ulcer of sacral region, stage 2; G89.29 Other chronic pain; M54.9 Dorsalgia, unspecified; E66.01 Morbid (severe) obesity due to excess calories; I10 Essential (primary) hypertension; N32.81 Overactive bladder; G47.30 Sleep apnea, unspecified; Z51.5 Encounter for palliative care; R60.9 Edema, unspecified; Z79.891 Long term (current) use of opiate analgesic; Z79.899 Other long term (current) drug therapy

== ENCOUNTER 2022-05-07 16:24 | Inpatient (IN) | payer MEDICAID, OTHER ==
[~2022-05-07] VITALS: Ht 170.2 cm; Wt 140.9 kg
[~2022-05-07 16:24] MED LIST changes: -TRAZ-189 PO
[2022-05-07 17:35] LABS: VENOUS BASE EXCESS -3.2 (-2.0-2.0); VENOUS HCO3 21.4 MEQ/L (23.0-27.0); VENOUS O2 SATURATION 72.4 % (60.0-80.0); VENOUS PARTIAL PRESSURE CO2 36.7 mmHg (38.0-50.0); VENOUS PARTIAL PRESSURE O2 40.7 mmHg (30.0-50.0); VENOUS PH 7.384 UNITS (7.330-7.430); VENOUS STANDARD HCO3 21.4 MEQ/L; VENOUS TOTAL CO2 22.5 MEQ/L (24.0-28.0)
[2022-05-07 17:47] LABS: BASO # 0.1 10^3/uL (0.0-0.2); BASO % 0.5 % (0.0-1.0); EOS # 0.1 10^3/uL (0.0-0.5); EOS % 0.5 % (0.0-3.0); HEMATOCRIT 27.6 % (42.0-52.0); HEMOGLOBIN 8.7 g/dl (13.5-17.5); LYMPH % 6.7 % (24.0-44.0); MEAN CORPUSCULAR HEMOGLOBIN 32.7 pg (27.0-33.0); MEAN CORPUSCULAR HGB CONC 31.5 g/dl (32.0-36.5); MEAN CORPUSCULAR VOLUME 103.8 fl (80.0-96.0); MONO # 1.3 10^3/uL (0.0-0.8); MONO % 8.4 % (2.0-8.0); NEUTROPHILS # 12.4 10^3/uL (1.5-8.5); PLATELET COUNT, AUTOMATED 228 10^3/uL (150-450); RED BLOOD COUNT 2.66 10^6/uL (4.30-6.10); WHITE BLOOD COUNT 15.3 10^3/uL (4.0-10.0)
[2022-05-07 18:16] LABS: OSMOLALITY SERUM 290 MOSM/KG (280-301)
[2022-05-07 18:17] LABS: ETHYL ALCOHOL (ETHANOL) 0.003 % (0.000-0.010)
[2022-05-07 18:18] LABS: BILIRUBIN,DIRECT 0.5 MG/DL (<0.4)
[2022-05-07 18:19] LABS: CPK CREATINE PHOSPHOKINASE 105 U/L (46-171)
[2022-05-07 18:21] LABS: ALBUMIN 2.5 G/DL (3.2-5.2); ALKALINE PHOSPHATASE 146 U/L (46-116); ALT/SGPT 20 U/L (7.0-40); AST/SGOT 26 U/L (<34); BILIRUBIN,TOTAL 1.1 MG/DL (0.3-1.2); BLOOD UREA NITROGEN 13 MG/DL (9-23); CALCIUM LEVEL 8.5 MG/DL (8.3-10.6); CARBON DIOXIDE LEVEL 23 MMOL/L (20-31); CHLORIDE LEVEL 104 MMOL/L (98-107); CK-MB VALUE MASS < 1.0 NG/ML (<3.6); CREATININE FOR GFR 0.83 MG/DL (0.70-1.30); GLOMERULAR FILTRATION RATE > 60.0 (>49); GLUCOSE, FASTING 101 MG/DL (74-106); MB/CK RELATIVE INDEX 0.95 (< OR =4); POTASSIUM SERUM 4.1 MMOL/L (3.5-5.1); SODIUM LEVEL 139 MMOL/L (136-145); THYROID STIMULATING HORMONE 2.533 uIU/ML (0.55-4.78); TOTAL PROTEIN 6.2 G/DL (5.7-8.2)
[2022-05-07 18:23] LABS: RSV AMPLIFICATION NEGATIVE (NEGATIVE)
[2022-05-07] MEDS ORDERED: NS 1,000 ML IV ONE (19:25)
[2022-05-07] MEDS ORDERED: fentaNYL 100 MCG/2 ML INJECTION IV PRN (19:25)
[2022-05-07] MEDS ORDERED: cefTRIAXone SOD 2 GM in D5W MINI-BAG PLUS 50 ML IV ONE (20:25)
[2022-05-07] MEDS ORDERED: NS 3,930 ML in IV 1 EA IV ONE (20:25)
[2022-05-07] MEDS ORDERED: DEXA2TA PO (22:18)
[2022-05-07] MEDS ORDERED: TRAZ-189 PO (22:18)
[2022-05-07] MEDS ORDERED: GABA-282 PO (22:18)
[2022-05-07] MEDS ORDERED: HYDR-4517 PO (22:20)
[2022-05-07] MEDS ORDERED: HOME MED LIST COMPLETE! XX SCH (22:25)
[2022-05-07] MEDS ORDERED: GLUCAGON INJ 1MG VIAL SC PRN (22:40)
[2022-05-07] MEDS ORDERED: DEXTROSE 50% 50ML SYRINGE IV PRN (22:40)
[2022-05-07] MEDS ORDERED: GLUCOSE 4GM CHEW TABLET PO PRN (22:40)
[2022-05-07] MEDS ORDERED: ALBUTEROL 90 MCG/ACT 8GM HFA INHALER INH PRN (22:40)
[2022-05-07] MEDS ORDERED: ISOVUE-370 76% 100ML VIAL As Ordered ONE (23:36)
[2022-05-08] MEDS ORDERED: VANCOMYCIN HCL 1,000 MG, VIAL MATE ADAPTER 1 EACH in NS 250 ML IV ONE ×4 (01:00)
[2022-05-08] MEDS: PIPERACILLIN/TAZOBACTAM SOD 4.5 GM in D5W MINI-BAG PLUS 50 ML IV SCH ×5 (01:25→22:04)
[2022-05-08] MEDS: NS 1,000 ML IV SCH ×2 (01:25→14:47)
[2022-05-08] MEDS ORDERED: ENOXAPARIN 150MG/ML SYRINGE SC ONE (02:00)
[2022-05-08] MEDS: NORCO, ANEXSIA 5/325MG TABLET (HYDROcodone/ACETAMINOPHEN) PO PRN ×3 (02:38→18:03)
[2022-05-08] MEDS ORDERED: NYSTATIN 100,000 UNITS/GM TOPICAL PWD 15GM TOP PRN (03:35)
[2022-05-08 03:45] VITALS: BP 115/59
[2022-05-08] MEDS: traMADol 50 MG TAB PO PRN ×2 (05:48→16:05)
[2022-05-08] MEDS: INSULIN LISPRO (NovoLOG) PER UNIT SC SCH ×4 (07:30→21:00)
[2022-05-08 08:00] VITALS: BP 140/65
[2022-05-08] MEDS ORDERED: LEVEMIR (INSULIN DETEMIR) 1 UNITS/0.01ML SC SCH (09:00)
[2022-05-08] MEDS ORDERED: ENOXAPARIN 40MG/0.4ML SYRINGE (J1650 PER 10MG) SC SCH (09:00)
[2022-05-08] MEDS: GABAPENTIN 300 MG CAP PO SCH ×2 (09:03→21:18)
[2022-05-08] MEDS: MELOXICAM (MOBIC) 7.5 MG TAB PO SCH (09:03)
[2022-05-08] MEDS: VANCOMYCIN HCL 1,000 MG, VIAL MATE ADAPTER 1 EACH in NS 250 ML IV SCH ×2 (10:15→19:21)
[2022-05-08 10:43] LABS: HEMATOCRIT 24.4 % (42.0-52.0); HEMOGLOBIN 7.7 g/dl (13.5-17.5); MEAN CORPUSCULAR HEMOGLOBIN 32.8 pg (27.0-33.0); MEAN CORPUSCULAR HGB CONC 31.6 g/dl (32.0-36.5); MEAN CORPUSCULAR VOLUME 103.8 fl (80.0-96.0); PLATELET COUNT, AUTOMATED 168 10^3/uL (150-450); RED BLOOD COUNT 2.35 10^6/uL (4.30-6.10); WHITE BLOOD COUNT 10.8 10^3/uL (4.0-10.0)
[2022-05-08 10:54] LABS: INR 1.26; PROTHROMBIN TIME 16.1 SECONDS (12.5-14.5)
[2022-05-08 10:55] LABS: PARTIAL THROMBOPLASTIN TIME 54.6 SECONDS (24.8-34.2)
[2022-05-08 11:14] LABS: MAGNESIUM LEVEL 1.4 MG/DL (1.8-2.4)
[2022-05-08 11:15] LABS: BLOOD UREA NITROGEN 10 MG/DL (9-23); CALCIUM LEVEL 7.4 MG/DL (8.3-10.6); CARBON DIOXIDE LEVEL 22 MMOL/L (20-31); CHLORIDE LEVEL 109 MMOL/L (98-107); CREATININE FOR GFR 0.76 MG/DL (0.70-1.30); GLOMERULAR FILTRATION RATE > 60.0 (>49); GLUCOSE, FASTING 119 MG/DL (74-106); POTASSIUM SERUM 3.7 MMOL/L (3.5-5.1); SODIUM LEVEL 140 MMOL/L (136-145)
[2022-05-08 12:00] VITALS: BP 154/76
[2022-05-08] MEDS: MAGNESIUM OXIDE 400MG TAB (MAG-OX) PO SCH ×3 (12:40→21:18)
[2022-05-08] MEDS ORDERED: MAGNESIUM OXIDE 400MG TAB (MAG-OX) PO SCH (16:00)
[2022-05-08] MEDS: SILVER SULFADIAZINE 1% CR 50 GM JAR TOP SCH (16:05)
[2022-05-08 17:11] VITALS: BP 127/92
[2022-05-08] MEDS: SODIUM CHLORIDE 0.9% INJ 10 ML SYR IV PRN (17:49)
[2022-05-08] MEDS: NYSTATIN 100,000 UNITS/GM TOPICAL PWD 15GM TOP SCH (19:26)
[2022-05-08] MEDS: traZODone 100 MG TAB PO PRN (21:17)
[2022-05-08 22:00] VITALS: BP 134/75
[2022-05-09] MEDS: NORCO, ANEXSIA 5/325MG TABLET (HYDROcodone/ACETAMINOPHEN) PO PRN ×4 (00:12→18:38)
[2022-05-09] MEDS: VANCOMYCIN HCL 1,000 MG, VIAL MATE ADAPTER 1 EACH in NS 250 ML IV SCH ×2 (02:34→11:29)
[2022-05-09] MEDS: PIPERACILLIN/TAZOBACTAM SOD 4.5 GM in D5W MINI-BAG PLUS 50 ML IV SCH ×4 (04:06→23:02)
[2022-05-09] MEDS: SODIUM CHLORIDE 0.9% INJ 10 ML SYR IV PRN ×3 (05:26→17:53)
[2022-05-09 05:41] LABS: BASO % 0.4 % (0.0-1.0); EOS # 0.1 10^3/uL (0.0-0.5); EOS % 0.7 % (0.0-3.0); LYMPH # 0.6 10^3/uL (1.5-5.0); LYMPH % 7.3 % (24.0-44.0); MEAN CORPUSCULAR HEMOGLOBIN 32.4 pg (27.0-33.0); MEAN CORPUSCULAR HGB CONC 30.9 g/dl (32.0-36.5); MEAN CORPUSCULAR VOLUME 104.8 fl (80.0-96.0); MONO # 0.7 10^3/uL (0.0-0.8); MONO % 8.6 % (2.0-8.0); NEUTROPHILS # 6.5 10^3/uL (1.5-8.5); NEUTROPHILS % 79.8 % (36.0-66.0); PLATELET COUNT, AUTOMATED 136 10^3/uL (150-450); WHITE BLOOD COUNT 8.1 10^3/uL (4.0-10.0)
[2022-05-09 05:45] LABS: HEMOGLOBIN 6.8 g/dl (13.5-17.5)
[2022-05-09 06:00] VITALS: BP 136/76
[2022-05-09 06:09] LABS: BLOOD UREA NITROGEN 10 MG/DL (9-23); CALCIUM LEVEL 7.2 MG/DL (8.3-10.6); CARBON DIOXIDE LEVEL 22 MMOL/L (20-31); CHLORIDE LEVEL 110 MMOL/L (98-107); CREATININE FOR GFR 0.87 MG/DL (0.70-1.30); GLOMERULAR FILTRATION RATE > 60.0 (>49); GLUCOSE, FASTING 129 MG/DL (74-106); POTASSIUM SERUM 3.9 MMOL/L (3.5-5.1); SODIUM LEVEL 141 MMOL/L (136-145)
[2022-05-09 07:57] LABS: HEMATOCRIT 25.4 % (42.0-52.0); HEMOGLOBIN 7.9 g/dl (13.5-17.5); MEAN CORPUSCULAR HEMOGLOBIN 32.6 pg (27.0-33.0); MEAN CORPUSCULAR HGB CONC 31.1 g/dl (32.0-36.5); PLATELET COUNT, AUTOMATED 171 10^3/uL (150-450); RED BLOOD COUNT 2.42 10^6/uL (4.30-6.10); WHITE BLOOD COUNT 10.4 10^3/uL (4.0-10.0)
[2022-05-09] MEDS: INSULIN LISPRO (NovoLOG) PER UNIT SC SCH ×4 (08:32→20:50)
[2022-05-09] MEDS: LEVEMIR (INSULIN DETEMIR) 1 UNITS/0.01ML SC SCH (09:00)
[2022-05-09] MEDS: SODIUM CHLORIDE 0.9% INJ 10 ML SYR IV SCH (09:00)
[2022-05-09] MEDS: SILVER SULFADIAZINE 1% CR 50 GM JAR TOP SCH (09:00)
[2022-05-09] MEDS: MELOXICAM (MOBIC) 7.5 MG TAB PO SCH (09:56)
[2022-05-09] MEDS: MAGNESIUM OXIDE 400MG TAB (MAG-OX) PO SCH ×3 (09:56→21:23)
[2022-05-09] MEDS: GABAPENTIN 300 MG CAP PO SCH ×2 (09:56→21:22)
[2022-05-09] MEDS: NYSTATIN 100,000 UNITS/GM TOPICAL PWD 15GM TOP SCH ×2 (09:57→21:23)
[2022-05-09] MEDS: ENOXAPARIN 40MG/0.4ML SYRINGE (J1650 PER 10MG) SC SCH ×2 (09:57→21:23)
[2022-05-09] MEDS: traMADol 50 MG TAB PO PRN ×2 (10:08→21:24)
[2022-05-09 11:41] LABS: IRON (FE) 66 UG/DL (65-175)
[2022-05-09 11:42] LABS: PERCENT SATURATION 43.7 % (19.7-50.0); TOTAL IRON BINDING CAPACITY 151 UG/DL (250-425)
[2022-05-09 11:44] LABS: VITAMIN B12 LEVEL 1953 PG/ML (211-911)
[2022-05-09 11:45] LABS: FOLATE > 24.0 NG/ML (>5.4)
[2022-05-09 14:00] VITALS: BP 158/80
[2022-05-09] MEDS ORDERED: LIDOCAINE 4% CREAM 5GM (LMX4) TOP PRN (16:05)
[2022-05-09] MEDS: HYDROMORPHONE HCL 0.5 MG/ 0.5 ML SYRINGE IV PRN (16:27)
[2022-05-09] MEDS ORDERED: LIDOCAINE 5% OINT 30GM TUBE TOP PRN (17:15)
[2022-05-09 22:00] VITALS: BP 134/77
[2022-05-10] VITALS (9 sets, daily range): BP systolic 113–149; BP diastolic 66–88
[2022-05-10] MEDS: VANCOMYCIN HCL 1,000 MG, VIAL MATE ADAPTER 1 EACH in D5W 250 ML IV SCH ×2 (00:11→13:13)
[2022-05-10] MEDS: NORCO, ANEXSIA 5/325MG TABLET (HYDROcodone/ACETAMINOPHEN) PO PRN ×3 (00:38→21:58)
[2022-05-10] MEDS: PIPERACILLIN/TAZOBACTAM SOD 4.5 GM in D5W MINI-BAG PLUS 50 ML IV SCH ×4 (04:59→22:07)
[2022-05-10] MEDS: SODIUM CHLORIDE 0.9% INJ 10 ML SYR IV PRN ×3 (06:05→23:21)
[2022-05-10 06:44] LABS: HEMATOCRIT 22.2 % (42.0-52.0); MEAN CORPUSCULAR HEMOGLOBIN 32.4 pg (27.0-33.0); MEAN CORPUSCULAR HGB CONC 30.6 g/dl (32.0-36.5); MEAN CORPUSCULAR VOLUME 105.7 fl (80.0-96.0); PLATELET COUNT, AUTOMATED 130 10^3/uL (150-450)
[2022-05-10 07:05] LABS: BLOOD UREA NITROGEN 13 MG/DL (9-23); CALCIUM LEVEL 7.3 MG/DL (8.3-10.6); CARBON DIOXIDE LEVEL 24 MMOL/L (20-31); CHLORIDE LEVEL 113 MMOL/L (98-107); CREATININE FOR GFR 0.78 MG/DL (0.70-1.30); GLOMERULAR FILTRATION RATE > 60.0 (>49); GLUCOSE, FASTING 111 MG/DL (74-106); POTASSIUM SERUM 3.9 MMOL/L (3.5-5.1); SODIUM LEVEL 144 MMOL/L (136-145)
[2022-05-10 07:06] LABS: HEMOGLOBIN 6.8 g/dl (13.5-17.5)
[2022-05-10] MEDS: INSULIN LISPRO (NovoLOG) PER UNIT SC SCH ×4 (07:30→21:00)
[2022-05-10] MEDS: LEVEMIR (INSULIN DETEMIR) 1 UNITS/0.01ML SC SCH (08:02)
[2022-05-10] MEDS: GABAPENTIN 300 MG CAP PO SCH ×2 (08:14→21:57)
[2022-05-10] MEDS: MAGNESIUM OXIDE 400MG TAB (MAG-OX) PO SCH ×3 (08:15→21:57)
[2022-05-10] MEDS: MELOXICAM (MOBIC) 7.5 MG TAB PO SCH (08:15)
[2022-05-10] MEDS: LIDOCAINE 5% (LIDODERM) PATCH TOP PRN (08:16)
[2022-05-10] MEDS: SODIUM CHLORIDE 0.9% INJ 10 ML SYR IV SCH (08:16)
[2022-05-10] MEDS: SILVER SULFADIAZINE 1% CR 50 GM JAR TOP SCH (08:18)
[2022-05-10] MEDS: NYSTATIN 100,000 UNITS/GM TOPICAL PWD 15GM TOP SCH ×2 (08:18→21:58)
[2022-05-10 08:42] LABS: BASO % 0.5 % (0.0-1.0); EOS # 0.1 10^3/uL (0.0-0.5); EOS % 0.9 % (0.0-3.0); HEMATOCRIT 24.5 % (42.0-52.0); HEMOGLOBIN 7.5 g/dl (13.5-17.5); LYMPH # 0.8 10^3/uL (1.5-5.0); LYMPH % 10.1 % (24.0-44.0); MEAN CORPUSCULAR HEMOGLOBIN 32.2 pg (27.0-33.0); MEAN CORPUSCULAR HGB CONC 30.6 g/dl (32.0-36.5); MEAN CORPUSCULAR VOLUME 105.2 fl (80.0-96.0); MONO # 0.6 10^3/uL (0.0-0.8); MONO % 7.3 % (2.0-8.0); NEUTROPHILS # 5.6 10^3/uL (1.5-8.5); NEUTROPHILS % 74.6 % (36.0-66.0); PLATELET COUNT, AUTOMATED 136 10^3/uL (150-450); RED BLOOD COUNT 2.33 10^6/uL (4.30-6.10); WHITE BLOOD COUNT 7.5 10^3/uL (4.0-10.0)
[2022-05-10 08:42] LABS: ATYPICAL LYMPH 1 % (0-5); EOSINOPHILS 2 % (0-3); LYMPHOCYTES 5 % (16-44); METAMYELOCYTES 4 % (0-0); MONOCYTES 7 % (0-5); MYELOCYTES 3 % (0-0); NEUTROPHILS 73 % (28-66); NUCLEATED RED BLOOD CELL 2 % (0-0)
[2022-05-10 08:43] LABS: ANISOCYTOSIS 3+; HYPOCHROMASIA 2+
[2022-05-10 08:44] LABS: PLATELET ESTIMATE NORMAL (NORMAL)
[2022-05-10] MEDS: ENOXAPARIN 40MG/0.4ML SYRINGE (J1650 PER 10MG) SC SCH ×2 (08:58→21:58)
[2022-05-10] MEDS: traMADol 50 MG TAB PO PRN (11:14)
[2022-05-10] MEDS: HYDROMORPHONE HCL 0.5 MG/ 0.5 ML SYRINGE IV PRN (12:21)
[2022-05-10] MEDS ORDERED: LIDOCAINE W/EPINEPHRINE 1% 20ML VIAL As Ordered ONE (14:01)
[2022-05-10] MEDS ORDERED: MIDAZOLAM INJ 2MG/2ML VIAL As Ordered ONE (15:10)
[2022-05-10] MEDS ORDERED: propofoL 500 MG/50 ML VIAL As Ordered ONE (15:10)
[2022-05-10] MEDS ORDERED: fentaNYL 100 MCG/2 ML INJECTION As Ordered ONE ×2 (15:10→16:05)
[2022-05-10] MEDS ORDERED: LIDOCAINE 2% 100MG/5ML SDV (FOR ANES.) As Ordered ONE (15:10)
[2022-05-10] MEDS ORDERED: oxyCODONE 5MG TAB PO PRN (16:05)
[2022-05-10] MEDS ORDERED: ONDANSETRON 4MG 2ML VIAL IV PRN (16:05)
[2022-05-10] MEDS ORDERED: LR 1,000 ML IV SCH (16:05)
[2022-05-10] MEDS ORDERED: METOCLOPRAMIDE INJ 10MG/2ML VIAL IV PRN (16:05)
[2022-05-10] MEDS: fentaNYL 100 MCG/2 ML INJECTION IV PRN ×4 (16:10→16:25)
[2022-05-10] MEDS: MORPHINE 2 MG/ML 1ML VIAL IV PRN ×3 (16:31→16:59)
[2022-05-11] VITALS (13 sets, daily range): BP systolic 108–163; BP diastolic 56–96
[2022-05-11] MEDS: traZODone 100 MG TAB PO PRN (00:17)
[2022-05-11] MEDS: VANCOMYCIN HCL 1,000 MG, VIAL MATE ADAPTER 1 EACH in D5W 250 ML IV SCH ×2 (00:17→12:21)
[2022-05-11] MEDS: SODIUM CHLORIDE 0.9% INJ 10 ML SYR IV PRN ×2 (01:51→06:40)
[2022-05-11] MEDS: PIPERACILLIN/TAZOBACTAM SOD 4.5 GM in D5W MINI-BAG PLUS 50 ML IV SCH ×4 (05:02→23:18)
[2022-05-11 07:47] LABS: HEMATOCRIT 22.7 % (42.0-52.0); MEAN CORPUSCULAR HEMOGLOBIN 32.7 pg (27.0-33.0); MEAN CORPUSCULAR HGB CONC 30.4 g/dl (32.0-36.5); MEAN CORPUSCULAR VOLUME 107.6 fl (80.0-96.0); PLATELET COUNT, AUTOMATED 133 10^3/uL (150-450); RED BLOOD COUNT 2.11 10^6/uL (4.30-6.10); WHITE BLOOD COUNT 7.7 10^3/uL (4.0-10.0)
[2022-05-11] MEDS: LEVEMIR (INSULIN DETEMIR) 1 UNITS/0.01ML SC SCH (07:52)
[2022-05-11 07:59] LABS: HEMOGLOBIN 6.9 g/dl (13.5-17.5)
[2022-05-11 08:07] LABS: BLOOD UREA NITROGEN 13 MG/DL (9-23); CALCIUM LEVEL 7.6 MG/DL (8.3-10.6); CARBON DIOXIDE LEVEL 25 MMOL/L (20-31); CHLORIDE LEVEL 112 MMOL/L (98-107); CREATININE FOR GFR 0.85 MG/DL (0.70-1.30); GLOMERULAR FILTRATION RATE > 60.0 (>49); GLUCOSE, FASTING 115 MG/DL (74-106); POTASSIUM SERUM 3.9 MMOL/L (3.5-5.1); SODIUM LEVEL 144 MMOL/L (136-145)
[2022-05-11 08:30] LABS: ATYPICAL LYMPH 2 % (0-5); BASOPHILS 2 % (0-1); LYMPHOCYTES 8 % (16-44); MONOCYTES 10 % (0-5); NEUTROPHILS 75 % (28-66)
[2022-05-11 08:31] LABS: ANISOCYTOSIS 1+; MICROCYTOSIS 1+; PLATELET ESTIMATE DECREASED (NORMAL); POLYCHROMASIA 1+
[2022-05-11] MEDS: INSULIN LISPRO (NovoLOG) PER UNIT SC SCH ×4 (08:35→21:00)
[2022-05-11] MEDS: GABAPENTIN 300 MG CAP PO SCH ×2 (08:35→22:04)
[2022-05-11] MEDS: ENOXAPARIN 40MG/0.4ML SYRINGE (J1650 PER 10MG) SC SCH ×2 (08:35→22:02)
[2022-05-11] MEDS: MELOXICAM (MOBIC) 7.5 MG TAB PO SCH (08:36)
[2022-05-11] MEDS: MAGNESIUM OXIDE 400MG TAB (MAG-OX) PO SCH ×3 (08:36→22:05)
[2022-05-11] MEDS: NORCO, ANEXSIA 5/325MG TABLET (HYDROcodone/ACETAMINOPHEN) PO PRN ×3 (08:37→22:06)
[2022-05-11] MEDS: NYSTATIN 100,000 UNITS/GM TOPICAL PWD 15GM TOP SCH ×2 (08:38→22:07)
[2022-05-11] MEDS: SODIUM CHLORIDE 0.9% INJ 10 ML SYR IV SCH (08:38)
[2022-05-11] MEDS: SILVER SULFADIAZINE 1% CR 50 GM JAR TOP SCH (08:39)
[2022-05-11] MEDS: HYDROMORPHONE HCL 0.5 MG/ 0.5 ML SYRINGE IV PRN (13:24)
[2022-05-11 20:17] LABS: HEMATOCRIT 28.3 % (42.0-52.0); HEMOGLOBIN 8.8 g/dl (13.5-17.5)
[2022-05-12] MEDS: VANCOMYCIN HCL 1,000 MG, VIAL MATE ADAPTER 1 EACH in D5W 250 ML IV SCH (00:27)
[2022-05-12] MEDS: PIPERACILLIN/TAZOBACTAM SOD 4.5 GM in D5W MINI-BAG PLUS 50 ML IV SCH ×4 (04:26→22:14)
[2022-05-12] MEDS: NORCO, ANEXSIA 5/325MG TABLET (HYDROcodone/ACETAMINOPHEN) PO PRN ×3 (04:27→17:12)
[2022-05-12 04:49] LABS: HEMATOCRIT 26.6 % (42.0-52.0); HEMOGLOBIN 8.1 g/dl (13.5-17.5); MEAN CORPUSCULAR HEMOGLOBIN 31.4 pg (27.0-33.0); MEAN CORPUSCULAR HGB CONC 30.5 g/dl (32.0-36.5); MEAN CORPUSCULAR VOLUME 103.1 fl (80.0-96.0); PLATELET COUNT, AUTOMATED 123 10^3/uL (150-450); RED BLOOD COUNT 2.58 10^6/uL (4.30-6.10); WHITE BLOOD COUNT 8.3 10^3/uL (4.0-10.0)
[2022-05-12 05:10] VITALS: BP 113/67
[2022-05-12 05:14] LABS: BLOOD UREA NITROGEN 14 MG/DL (9-23); CALCIUM LEVEL 7.6 MG/DL (8.3-10.6); CARBON DIOXIDE LEVEL 26 MMOL/L (20-31); CHLORIDE LEVEL 113 MMOL/L (98-107); CREATININE FOR GFR 0.92 MG/DL (0.70-1.30); GLOMERULAR FILTRATION RATE > 60.0 (>49); GLUCOSE, FASTING 115 MG/DL (74-106); POTASSIUM SERUM 4.2 MMOL/L (3.5-5.1); SODIUM LEVEL 145 MMOL/L (136-145)
[2022-05-12 05:29] LABS: BASOPHILS 2 % (0-1); LYMPHOCYTES 11 % (16-44); METAMYELOCYTES 5 % (0-0); MONOCYTES 3 % (0-5); MYELOCYTES 5 % (0-0); NEUTROPHILS 70 % (28-66); NUCLEATED RED BLOOD CELL 3 % (0-0)
[2022-05-12 05:31] LABS: ANISOCYTOSIS 4+
[2022-05-12 05:32] LABS: HYPOCHROMASIA 1+
[2022-05-12 05:33] LABS: PLATELET ESTIMATE NORMAL (NORMAL)
[2022-05-12] MEDS: LEVEMIR (INSULIN DETEMIR) 1 UNITS/0.01ML SC SCH (08:02)
[2022-05-12] MEDS: traMADol 50 MG TAB PO PRN (08:02)
[2022-05-12] MEDS: GABAPENTIN 300 MG CAP PO SCH ×2 (08:04→22:14)
[2022-05-12] MEDS: INSULIN LISPRO (NovoLOG) PER UNIT SC SCH ×4 (08:04→20:52)
[2022-05-12] MEDS: MELOXICAM (MOBIC) 7.5 MG TAB PO SCH (08:05)
[2022-05-12] MEDS: ENOXAPARIN 40MG/0.4ML SYRINGE (J1650 PER 10MG) SC SCH ×2 (08:05→21:00)
[2022-05-12] MEDS: MAGNESIUM OXIDE 400MG TAB (MAG-OX) PO SCH ×3 (08:05→22:13)
[2022-05-12] MEDS: SODIUM CHLORIDE 0.9% INJ 10 ML SYR IV SCH (08:06)
[2022-05-12] MEDS: SILVER SULFADIAZINE 1% CR 50 GM JAR TOP SCH (08:07)
[2022-05-12] MEDS: NYSTATIN 100,000 UNITS/GM TOPICAL PWD 15GM TOP SCH ×2 (08:07→22:12)
[2022-05-12 14:00] VITALS: BP 111/58
[2022-05-12] MEDS: HYDROMORPHONE HCL 0.5 MG/ 0.5 ML SYRINGE IV PRN (14:50)
[2022-05-12] MEDS: LIDOCAINE 5% (LIDODERM) PATCH TOP PRN (15:54)
[2022-05-12 20:29] VITALS: BP 138/66
[2022-05-13] MEDS: NORCO, ANEXSIA 5/325MG TABLET (HYDROcodone/ACETAMINOPHEN) PO PRN ×4 (01:21→20:40)
[2022-05-13 04:51] VITALS: BP 141/68
[2022-05-13] MEDS: SODIUM CHLORIDE 0.9% INJ 10 ML SYR IV PRN (04:55)
[2022-05-13] MEDS: PIPERACILLIN/TAZOBACTAM SOD 4.5 GM in D5W MINI-BAG PLUS 50 ML IV SCH ×4 (04:58→23:47)
[2022-05-13] MEDS ORDERED: LOPERAMIDE 2 MG CAPLET PO ONE (06:00)
[2022-05-13] MEDS: INSULIN LISPRO (NovoLOG) PER UNIT SC SCH ×4 (07:47→20:38)
[2022-05-13] MEDS: LEVEMIR (INSULIN DETEMIR) 1 UNITS/0.01ML SC SCH (07:48)
[2022-05-13] MEDS: MAGNESIUM OXIDE 400MG TAB (MAG-OX) PO SCH ×3 (07:48→20:38)
[2022-05-13] MEDS: MELOXICAM (MOBIC) 7.5 MG TAB PO SCH (07:49)
[2022-05-13] MEDS: LACTOBACILLUS ACIDOPHILUS CAP (BACID) PO SCH (07:49)
[2022-05-13] MEDS: GABAPENTIN 300 MG CAP PO SCH ×2 (07:49→20:39)
[2022-05-13] MEDS: NYSTATIN 100,000 UNITS/GM TOPICAL PWD 15GM TOP SCH ×2 (07:51→20:39)
[2022-05-13] MEDS: SILVER SULFADIAZINE 1% CR 50 GM JAR TOP SCH (07:51)
[2022-05-13 09:21] LABS: BLOOD UREA NITROGEN 15 MG/DL (9-23); CARBON DIOXIDE LEVEL 25 MMOL/L (20-31); CHLORIDE LEVEL 111 MMOL/L (98-107); CREATININE FOR GFR 0.93 MG/DL (0.70-1.30); GLOMERULAR FILTRATION RATE > 60.0 (>49); GLUCOSE, FASTING 106 MG/DL (74-106); POTASSIUM SERUM 3.9 MMOL/L (3.5-5.1); SODIUM LEVEL 143 MMOL/L (136-145)
[2022-05-13 09:28] LABS: HEMATOCRIT 28.3 % (42.0-52.0); HEMOGLOBIN 8.5 g/dl (13.5-17.5); MEAN CORPUSCULAR HEMOGLOBIN 31.5 pg (27.0-33.0); MEAN CORPUSCULAR VOLUME 104.8 fl (80.0-96.0); PLATELET COUNT, AUTOMATED 111 10^3/uL (150-450); WHITE BLOOD COUNT 6.8 10^3/uL (4.0-10.0)
[2022-05-13] MEDS: SODIUM CHLORIDE 0.9% INJ 10 ML SYR IV SCH (09:50)
[2022-05-13 10:43] LABS: ATYPICAL LYMPH 4 % (0-5); BASOPHILS 1 % (0-1); LYMPHOCYTES 20 % (16-44); METAMYELOCYTES 2 % (0-0); MONOCYTES 6 % (0-5); MYELOCYTES 3 % (0-0); NEUTROPHILS 62 % (28-66)
[2022-05-13 10:44] LABS: ANISOCYTOSIS 3+
[2022-05-13 10:45] LABS: HYPOCHROMASIA 1+
[2022-05-13 10:46] LABS: PLATELET ESTIMATE DECREASED (NORMAL)
[2022-05-13 12:06] LABS: CLOSTRIDIUM DIFFICILE PCR NEGATIVE (NEGATIVE)
[2022-05-13 14:00] VITALS: BP 139/72
[2022-05-13] MEDS: HYDROMORPHONE HCL 0.5 MG/ 0.5 ML SYRINGE IV PRN (15:54)
[2022-05-13] MEDS: METOPROLOL SUCC (TopROL XL) 50MG **XL** TAB PO SCH (16:49)
[2022-05-13 20:39] VITALS: BP 158/74
[2022-05-13] MEDS: ENOXAPARIN 40MG/0.4ML SYRINGE (J1650 PER 10MG) SC SCH (20:39)
[2022-05-14] MEDS: SODIUM CHLORIDE 0.9% INJ 10 ML SYR IV PRN ×3 (01:04→15:24)
[2022-05-14] MEDS: NORCO, ANEXSIA 5/325MG TABLET (HYDROcodone/ACETAMINOPHEN) PO PRN ×4 (03:18→23:43)
[2022-05-14 04:42] VITALS: BP 155/75
[2022-05-14] MEDS: PIPERACILLIN/TAZOBACTAM SOD 4.5 GM in D5W MINI-BAG PLUS 50 ML IV SCH (05:10)
[2022-05-14 05:21] LABS: BASO # 0.1 10^3/uL (0.0-0.2); BASO % 0.8 % (0.0-1.0); EOS # 0.1 10^3/uL (0.0-0.5); EOS % 0.9 % (0.0-3.0); HEMATOCRIT 27.6 % (42.0-52.0); HEMOGLOBIN 8.3 g/dl (13.5-17.5); LYMPH # 0.8 10^3/uL (1.5-5.0); LYMPH % 10.3 % (24.0-44.0); MEAN CORPUSCULAR HEMOGLOBIN 31.7 pg (27.0-33.0); MEAN CORPUSCULAR HGB CONC 30.1 g/dl (32.0-36.5); MEAN CORPUSCULAR VOLUME 105.3 fl (80.0-96.0); MONO # 0.6 10^3/uL (0.0-0.8); MONO % 7.1 % (2.0-8.0); NEUTROPHILS % 76.5 % (36.0-66.0); PLATELET COUNT, AUTOMATED 111 10^3/uL (150-450); RED BLOOD COUNT 2.62 10^6/uL (4.30-6.10); WHITE BLOOD COUNT 7.9 10^3/uL (4.0-10.0)
[2022-05-14 05:55] LABS: BLOOD UREA NITROGEN 15 MG/DL (9-23); CALCIUM LEVEL 8.2 MG/DL (8.3-10.6); CARBON DIOXIDE LEVEL 25 MMOL/L (20-31); CHLORIDE LEVEL 113 MMOL/L (98-107); GLOMERULAR FILTRATION RATE > 60.0 (>49); GLUCOSE, FASTING 108 MG/DL (74-106); POTASSIUM SERUM 3.9 MMOL/L (3.5-5.1); SODIUM LEVEL 144 MMOL/L (136-145)
[2022-05-14] MEDS: LEVEMIR (INSULIN DETEMIR) 1 UNITS/0.01ML SC SCH (08:49)
[2022-05-14] MEDS: SILVER SULFADIAZINE 1% CR 50 GM JAR TOP SCH (08:52)
[2022-05-14] MEDS: INSULIN LISPRO (NovoLOG) PER UNIT SC SCH ×4 (09:33→21:00)
[2022-05-14] MEDS: ENOXAPARIN 40MG/0.4ML SYRINGE (J1650 PER 10MG) SC SCH ×2 (09:34→21:37)
[2022-05-14] MEDS: MAGNESIUM OXIDE 400MG TAB (MAG-OX) PO SCH ×3 (09:35→21:39)
[2022-05-14] MEDS: LACTOBACILLUS ACIDOPHILUS CAP (BACID) PO SCH (09:36)
[2022-05-14] MEDS: MELOXICAM (MOBIC) 7.5 MG TAB PO SCH (09:37)
[2022-05-14] MEDS: GABAPENTIN 300 MG CAP PO SCH ×2 (09:37→21:38)
[2022-05-14] MEDS: METOPROLOL SUCC (TopROL XL) 50MG **XL** TAB PO SCH (09:37)
[2022-05-14] MEDS: NYSTATIN 100,000 UNITS/GM TOPICAL PWD 15GM TOP SCH ×2 (09:38→21:39)
[2022-05-14] MEDS: SODIUM CHLORIDE 0.9% INJ 10 ML SYR IV SCH (09:38)
[2022-05-14] MEDS: LOMOTIL 2.5MG/0.025MG TABLET PO SCH ×3 (13:55→21:37)
[2022-05-14 14:00] VITALS: BP 124/70
[2022-05-14] MEDS: HYDROMORPHONE HCL 0.5 MG/ 0.5 ML SYRINGE IV PRN (15:23)
[2022-05-14 20:40] VITALS: BP 133/68
[2022-05-15 04:50] VITALS: BP 128/68
[2022-05-15] MEDS: NORCO, ANEXSIA 5/325MG TABLET (HYDROcodone/ACETAMINOPHEN) PO PRN ×3 (05:56→18:18)
[2022-05-15] MEDS: SODIUM CHLORIDE 0.9% INJ 10 ML SYR IV PRN ×3 (05:57→14:07)
[2022-05-15 06:17] LABS: HEMATOCRIT 27.9 % (42.0-52.0); HEMOGLOBIN 8.4 g/dl (13.5-17.5); MEAN CORPUSCULAR HEMOGLOBIN 31.5 pg (27.0-33.0); MEAN CORPUSCULAR HGB CONC 30.1 g/dl (32.0-36.5); MEAN CORPUSCULAR VOLUME 104.5 fl (80.0-96.0); PLATELET COUNT, AUTOMATED 108 10^3/uL (150-450); RED BLOOD COUNT 2.67 10^6/uL (4.30-6.10); WHITE BLOOD COUNT 6.8 10^3/uL (4.0-10.0)
[2022-05-15] MEDS: INSULIN LISPRO (NovoLOG) PER UNIT SC SCH ×4 (07:30→20:40)
[2022-05-15 08:02] LABS: ALBUMIN 2.2 G/DL (3.2-5.2); ALKALINE PHOSPHATASE 146 U/L (46-116); ALT/SGPT 26 U/L (7.0-40); AST/SGOT 27 U/L (<34); BILIRUBIN,TOTAL 0.4 MG/DL (0.3-1.2); BLOOD UREA NITROGEN 15 MG/DL (9-23); CALCIUM LEVEL 8.3 MG/DL (8.3-10.6); CARBON DIOXIDE LEVEL 24 MMOL/L (20-31); CHLORIDE LEVEL 111 MMOL/L (98-107); CREATININE FOR GFR 0.75 MG/DL (0.70-1.30); GLOMERULAR FILTRATION RATE > 60.0 (>49); GLUCOSE, FASTING 98 MG/DL (74-106); POTASSIUM SERUM 3.9 MMOL/L (3.5-5.1); SODIUM LEVEL 145 MMOL/L (136-145); TOTAL PROTEIN 5.5 G/DL (5.7-8.2)
[2022-05-15] MEDS: LACTOBACILLUS ACIDOPHILUS CAP (BACID) PO SCH (08:25)
[2022-05-15] MEDS: LOMOTIL 2.5MG/0.025MG TABLET PO SCH ×4 (08:25→20:42)
[2022-05-15] MEDS: GABAPENTIN 300 MG CAP PO SCH ×2 (08:25→20:40)
[2022-05-15] MEDS: METOPROLOL SUCC (TopROL XL) 50MG **XL** TAB PO SCH (08:27)
[2022-05-15] MEDS: SODIUM CHLORIDE 0.9% INJ 10 ML SYR IV SCH (08:28)
[2022-05-15] MEDS: LIDOCAINE 5% (LIDODERM) PATCH TOP PRN (08:29)
[2022-05-15] MEDS: ENOXAPARIN 40MG/0.4ML SYRINGE (J1650 PER 10MG) SC SCH ×2 (08:29→20:40)
[2022-05-15] MEDS: LEVEMIR (INSULIN DETEMIR) 1 UNITS/0.01ML SC SCH (08:29)
[2022-05-15] MEDS: MAGNESIUM OXIDE 400MG TAB (MAG-OX) PO SCH ×3 (08:30→20:40)
[2022-05-15] MEDS ORDERED: IRON SUCROSE 300 MG in NS 250 ML IV ONE (09:00)
[2022-05-15] MEDS: SILVER SULFADIAZINE 1% CR 50 GM JAR TOP SCH (09:00)
[2022-05-15] MEDS: MELOXICAM (MOBIC) 7.5 MG TAB PO SCH (09:17)
[2022-05-15] MEDS: NYSTATIN 100,000 UNITS/GM TOPICAL PWD 15GM TOP SCH ×2 (09:17→20:44)
[2022-05-15 11:27] LABS: HEMATOCRIT 26.6 % (42.0-52.0); HEMOGLOBIN 8.1 g/dl (13.5-17.5); MEAN CORPUSCULAR HEMOGLOBIN 32.1 pg (27.0-33.0); MEAN CORPUSCULAR HGB CONC 30.5 g/dl (32.0-36.5); MEAN CORPUSCULAR VOLUME 105.6 fl (80.0-96.0); PLATELET COUNT, AUTOMATED 114 10^3/uL (150-450); RED BLOOD COUNT 2.52 10^6/uL (4.30-6.10); WHITE BLOOD COUNT 7.9 10^3/uL (4.0-10.0)
[2022-05-15 14:00] VITALS: BP 128/71
[2022-05-15] MEDS: HYDROMORPHONE HCL 0.5 MG/ 0.5 ML SYRINGE IV PRN (14:06)
[2022-05-15 20:04] LABS: HEMATOCRIT 28.6 % (42.0-52.0); HEMOGLOBIN 8.6 g/dl (13.5-17.5)
[2022-05-15] MEDS: traMADol 50 MG TAB PO PRN (20:39)
[2022-05-15] MEDS: FERROUS SULFATE 325MG TAB PO SCH (20:40)
[2022-05-16] MEDS: NORCO, ANEXSIA 5/325MG TABLET (HYDROcodone/ACETAMINOPHEN) PO PRN ×4 (00:19→20:38)
[2022-05-16 04:40] VITALS: BP 129/71
[2022-05-16 04:44] LABS: HEMATOCRIT 26.8 % (42.0-52.0); HEMOGLOBIN 8.1 g/dl (13.5-17.5)
[2022-05-16 06:17] LABS: BASO % 0.6 % (0.0-1.0); EOS # 0.1 10^3/uL (0.0-0.5); EOS % 1.4 % (0.0-3.0); HEMATOCRIT 27.5 % (42.0-52.0); HEMOGLOBIN 8.4 g/dl (13.5-17.5); LYMPH # 0.7 10^3/uL (1.5-5.0); LYMPH % 11.5 % (24.0-44.0); MEAN CORPUSCULAR HEMOGLOBIN 32.3 pg (27.0-33.0); MEAN CORPUSCULAR HGB CONC 30.5 g/dl (32.0-36.5); MEAN CORPUSCULAR VOLUME 105.8 fl (80.0-96.0); MONO # 0.5 10^3/uL (0.0-0.8); MONO % 8.3 % (2.0-8.0); NEUTROPHILS # 4.9 10^3/uL (1.5-8.5); NEUTROPHILS % 75.6 % (36.0-66.0); PLATELET COUNT, AUTOMATED 118 10^3/uL (150-450); WHITE BLOOD COUNT 6.4 10^3/uL (4.0-10.0)
[2022-05-16] MEDS: INSULIN LISPRO (NovoLOG) PER UNIT SC SCH ×4 (07:30→21:00)
[2022-05-16] MEDS: SILVER SULFADIAZINE 1% CR 50 GM JAR TOP SCH (09:00)
[2022-05-16] MEDS: LIDOCAINE 5% (LIDODERM) PATCH TOP PRN (09:50)
[2022-05-16] MEDS: LOMOTIL 2.5MG/0.025MG TABLET PO SCH ×4 (09:53→20:45)
[2022-05-16] MEDS: LACTOBACILLUS ACIDOPHILUS CAP (BACID) PO SCH (09:53)
[2022-05-16] MEDS: GABAPENTIN 300 MG CAP PO SCH ×2 (09:53→20:36)
[2022-05-16] MEDS: FERROUS SULFATE 325MG TAB PO SCH ×2 (09:53→20:36)
[2022-05-16] MEDS: MAGNESIUM OXIDE 400MG TAB (MAG-OX) PO SCH ×3 (09:54→20:37)
[2022-05-16] MEDS: MELOXICAM (MOBIC) 7.5 MG TAB PO SCH (09:54)
[2022-05-16] MEDS: METOPROLOL SUCC (TopROL XL) 50MG **XL** TAB PO SCH (09:55)
[2022-05-16] MEDS: traMADol 50 MG TAB PO PRN (09:55)
[2022-05-16] MEDS: SODIUM CHLORIDE 0.9% INJ 10 ML SYR IV SCH (09:56)
[2022-05-16] MEDS: ENOXAPARIN 40MG/0.4ML SYRINGE (J1650 PER 10MG) SC SCH ×2 (09:56→20:39)
[2022-05-16] MEDS: LEVEMIR (INSULIN DETEMIR) 1 UNITS/0.01ML SC SCH (09:57)
[2022-05-16] MEDS: NYSTATIN 100,000 UNITS/GM TOPICAL PWD 15GM TOP SCH ×2 (15:19→20:39)
[2022-05-16] MEDS: HYDROMORPHONE HCL 0.5 MG/ 0.5 ML SYRINGE IV PRN (15:21)
[2022-05-17] MEDS: SODIUM CHLORIDE 0.9% INJ 10 ML SYR IV PRN (05:02)
[2022-05-17 05:11] LABS: BASO % 0.6 % (0.0-1.0); EOS # 0.1 10^3/uL (0.0-0.5); EOS % 1.9 % (0.0-3.0); HEMATOCRIT 27.8 % (42.0-52.0); HEMOGLOBIN 8.4 g/dl (13.5-17.5); LYMPH # 0.9 10^3/uL (1.5-5.0); LYMPH % 13.6 % (24.0-44.0); MEAN CORPUSCULAR HEMOGLOBIN 32.1 pg (27.0-33.0); MEAN CORPUSCULAR HGB CONC 30.2 g/dl (32.0-36.5); MEAN CORPUSCULAR VOLUME 106.1 fl (80.0-96.0); MONO # 0.6 10^3/uL (0.0-0.8); MONO % 8.8 % (2.0-8.0); NEUTROPHILS # 4.6 10^3/uL (1.5-8.5); NEUTROPHILS % 73.5 % (36.0-66.0); PLATELET COUNT, AUTOMATED 116 10^3/uL (150-450); RED BLOOD COUNT 2.62 10^6/uL (4.30-6.10); WHITE BLOOD COUNT 6.2 10^3/uL (4.0-10.0)
[2022-05-17] MEDS: NORCO, ANEXSIA 5/325MG TABLET (HYDROcodone/ACETAMINOPHEN) PO PRN ×3 (05:12→18:02)
[2022-05-17 06:00] VITALS: BP 153/74
[2022-05-17] MEDS: INSULIN LISPRO (NovoLOG) PER UNIT SC SCH ×4 (07:30→20:33)
[2022-05-17] MEDS: LIDOCAINE 5% (LIDODERM) PATCH TOP PRN (08:35)
[2022-05-17] MEDS: ENOXAPARIN 40MG/0.4ML SYRINGE (J1650 PER 10MG) SC SCH ×2 (08:35→20:53)
[2022-05-17] MEDS: LEVEMIR (INSULIN DETEMIR) 1 UNITS/0.01ML SC SCH (08:37)
[2022-05-17] MEDS: LACTOBACILLUS ACIDOPHILUS CAP (BACID) PO SCH (08:38)
[2022-05-17] MEDS: SODIUM CHLORIDE 0.9% INJ 10 ML SYR IV SCH (08:38)
[2022-05-17] MEDS: MELOXICAM (MOBIC) 7.5 MG TAB PO SCH (08:38)
[2022-05-17] MEDS: LOMOTIL 2.5MG/0.025MG TABLET PO SCH ×4 (08:38→21:02)
[2022-05-17] MEDS: GABAPENTIN 300 MG CAP PO SCH ×2 (08:38→20:50)
[2022-05-17] MEDS: FERROUS SULFATE 325MG TAB PO SCH ×2 (08:38→20:51)
[2022-05-17] MEDS: METOPROLOL SUCC (TopROL XL) 50MG **XL** TAB PO SCH (08:39)
[2022-05-17] MEDS: MAGNESIUM OXIDE 400MG TAB (MAG-OX) PO SCH ×3 (08:39→20:52)
[2022-05-17] MEDS: SILVER SULFADIAZINE 1% CR 50 GM JAR TOP SCH (08:40)
[2022-05-17] MEDS: NYSTATIN 100,000 UNITS/GM TOPICAL PWD 15GM TOP SCH ×2 (08:40→20:53)
[2022-05-17] MEDS: HYDROMORPHONE HCL 0.5 MG/ 0.5 ML SYRINGE IV PRN (15:08)
[2022-05-17] MEDS: ONDANSETRON 4MG TAB PO PRN (18:03)
[2022-05-17 19:49] VITALS: BP 117/67
[2022-05-17] MEDS: traMADol 50 MG TAB PO PRN (21:02)
[2022-05-18] MEDS: NORCO, ANEXSIA 5/325MG TABLET (HYDROcodone/ACETAMINOPHEN) PO PRN ×4 (00:28→20:08)
[2022-05-18] MEDS: SODIUM CHLORIDE 0.9% INJ 10 ML SYR IV PRN (05:30)
[2022-05-18 05:39] VITALS: BP 120/70
[2022-05-18 05:49] LABS: BASO % 0.5 % (0.0-1.0); EOS # 0.2 10^3/uL (0.0-0.5); EOS % 2.7 % (0.0-3.0); HEMATOCRIT 28.3 % (42.0-52.0); HEMOGLOBIN 8.5 g/dl (13.5-17.5); LYMPH # 0.7 10^3/uL (1.5-5.0); LYMPH % 12.7 % (24.0-44.0); MEAN CORPUSCULAR HEMOGLOBIN 31.8 pg (27.0-33.0); MONO # 0.5 10^3/uL (0.0-0.8); MONO % 9.1 % (2.0-8.0); NEUTROPHILS # 4.1 10^3/uL (1.5-8.5); NEUTROPHILS % 73.9 % (36.0-66.0); PLATELET COUNT, AUTOMATED 121 10^3/uL (150-450); RED BLOOD COUNT 2.67 10^6/uL (4.30-6.10); WHITE BLOOD COUNT 5.5 10^3/uL (4.0-10.0)
[2022-05-18] MEDS: INSULIN LISPRO (NovoLOG) PER UNIT SC SCH ×4 (07:29→20:50)
[2022-05-18] MEDS: LEVEMIR (INSULIN DETEMIR) 1 UNITS/0.01ML SC SCH (07:31)
[2022-05-18] MEDS: SILVER SULFADIAZINE 1% CR 50 GM JAR TOP SCH (09:00)
[2022-05-18] MEDS: LOMOTIL 2.5MG/0.025MG TABLET PO SCH ×4 (09:26→20:06)
[2022-05-18] MEDS: LACTOBACILLUS ACIDOPHILUS CAP (BACID) PO SCH (09:26)
[2022-05-18] MEDS: METOPROLOL SUCC (TopROL XL) 50MG **XL** TAB PO SCH (09:26)
[2022-05-18] MEDS: GABAPENTIN 300 MG CAP PO SCH ×2 (09:27→20:06)
[2022-05-18] MEDS: FERROUS SULFATE 325MG TAB PO SCH ×2 (09:27→20:06)
[2022-05-18] MEDS: MAGNESIUM OXIDE 400MG TAB (MAG-OX) PO SCH ×3 (09:27→20:07)
[2022-05-18] MEDS: MELOXICAM (MOBIC) 7.5 MG TAB PO SCH (09:27)
[2022-05-18] MEDS: NYSTATIN 100,000 UNITS/GM TOPICAL PWD 15GM TOP SCH ×2 (09:28→20:09)
[2022-05-18] MEDS: ENOXAPARIN 40MG/0.4ML SYRINGE (J1650 PER 10MG) SC SCH ×2 (09:28→20:06)
[2022-05-18] MEDS: LIDOCAINE 5% (LIDODERM) PATCH TOP PRN (13:27)
[2022-05-18] MEDS: HYDROMORPHONE HCL 0.5 MG/ 0.5 ML SYRINGE IV PRN (15:25)
[2022-05-18] MEDS: SODIUM CHLORIDE 0.9% INJ 10 ML SYR IV SCH (15:26)
[2022-05-18 19:43] VITALS: BP 119/67
[2022-05-19] MEDS: NORCO, ANEXSIA 5/325MG TABLET (HYDROcodone/ACETAMINOPHEN) PO PRN ×3 (02:59→18:37)
[2022-05-19 06:08] VITALS: BP 125/68
[2022-05-19] MEDS: SILVER SULFADIAZINE 1% CR 50 GM JAR TOP SCH (07:57)
[2022-05-19] MEDS: METOPROLOL SUCC (TopROL XL) 50MG **XL** TAB PO SCH (08:32)
[2022-05-19] MEDS: GABAPENTIN 300 MG CAP PO SCH ×2 (08:33→21:43)
[2022-05-19] MEDS: FERROUS SULFATE 325MG TAB PO SCH ×2 (08:33→21:43)
[2022-05-19] MEDS: MELOXICAM (MOBIC) 7.5 MG TAB PO SCH (08:33)
[2022-05-19] MEDS: MAGNESIUM OXIDE 400MG TAB (MAG-OX) PO SCH ×3 (08:33→21:45)
[2022-05-19] MEDS: LACTOBACILLUS ACIDOPHILUS CAP (BACID) PO SCH (08:33)
[2022-05-19] MEDS: LEVEMIR (INSULIN DETEMIR) 1 UNITS/0.01ML SC SCH (08:34)
[2022-05-19] MEDS: LOMOTIL 2.5MG/0.025MG TABLET PO SCH ×4 (08:34→21:43)
[2022-05-19] MEDS: INSULIN LISPRO (NovoLOG) PER UNIT SC SCH ×4 (08:35→21:00)
[2022-05-19] MEDS: ENOXAPARIN 40MG/0.4ML SYRINGE (J1650 PER 10MG) SC SCH ×2 (08:35→21:43)
[2022-05-19] MEDS: NYSTATIN 100,000 UNITS/GM TOPICAL PWD 15GM TOP SCH ×2 (08:36→21:44)
[2022-05-19] MEDS: SODIUM CHLORIDE 0.9% INJ 10 ML SYR IV SCH (08:36)
[2022-05-19] MEDS: LIDOCAINE 5% (LIDODERM) PATCH TOP PRN (08:36)
[2022-05-19] MEDS: SODIUM CHLORIDE 0.9% INJ 10 ML SYR IV PRN (15:27)
[2022-05-19] MEDS: HYDROMORPHONE HCL 0.5 MG/ 0.5 ML SYRINGE IV PRN (15:28)
[2022-05-20] MEDS: NORCO, ANEXSIA 5/325MG TABLET (HYDROcodone/ACETAMINOPHEN) PO PRN ×3 (01:10→17:55)
[2022-05-20 05:10] VITALS: BP 134/63
[2022-05-20 06:25] LABS: BASO # 0.1 10^3/uL (0.0-0.2); BASO % 0.8 % (0.0-1.0); EOS # 0.2 10^3/uL (0.0-0.5); EOS % 2.7 % (0.0-3.0); HEMATOCRIT 28.6 % (42.0-52.0); HEMOGLOBIN 8.6 g/dl (13.5-17.5); LYMPH # 0.8 10^3/uL (1.5-5.0); LYMPH % 13.2 % (24.0-44.0); MEAN CORPUSCULAR HGB CONC 30.1 g/dl (32.0-36.5); MEAN CORPUSCULAR VOLUME 106.3 fl (80.0-96.0); MONO # 0.6 10^3/uL (0.0-0.8); NEUTROPHILS # 4.6 10^3/uL (1.5-8.5); NEUTROPHILS % 73.5 % (36.0-66.0); PLATELET COUNT, AUTOMATED 125 10^3/uL (150-450); RED BLOOD COUNT 2.69 10^6/uL (4.30-6.10); WHITE BLOOD COUNT 6.3 10^3/uL (4.0-10.0)
[2022-05-20] MEDS: ENOXAPARIN 40MG/0.4ML SYRINGE (J1650 PER 10MG) SC SCH ×2 (08:58→22:21)
[2022-05-20] MEDS: GABAPENTIN 300 MG CAP PO SCH ×2 (08:59→22:22)
[2022-05-20] MEDS: LOMOTIL 2.5MG/0.025MG TABLET PO SCH ×4 (08:59→22:22)
[2022-05-20] MEDS: LACTOBACILLUS ACIDOPHILUS CAP (BACID) PO SCH (08:59)
[2022-05-20] MEDS: LEVEMIR (INSULIN DETEMIR) 1 UNITS/0.01ML SC SCH (08:59)
[2022-05-20] MEDS: INSULIN LISPRO (NovoLOG) PER UNIT SC SCH ×4 (09:00→21:00)
[2022-05-20] MEDS: SILVER SULFADIAZINE 1% CR 50 GM JAR TOP SCH (09:00)
[2022-05-20] MEDS: MELOXICAM (MOBIC) 7.5 MG TAB PO SCH (09:01)
[2022-05-20] MEDS: METOPROLOL SUCC (TopROL XL) 50MG **XL** TAB PO SCH (09:02)
[2022-05-20] MEDS: MAGNESIUM OXIDE 400MG TAB (MAG-OX) PO SCH ×3 (09:02→22:23)
[2022-05-20] MEDS: FERROUS SULFATE 325MG TAB PO SCH ×2 (09:02→22:22)
[2022-05-20] MEDS: SODIUM CHLORIDE 0.9% INJ 10 ML SYR IV SCH (09:03)
[2022-05-20] MEDS: NYSTATIN 100,000 UNITS/GM TOPICAL PWD 15GM TOP SCH ×2 (09:03→22:22)
[2022-05-20] MEDS: LIDOCAINE 5% (LIDODERM) PATCH TOP PRN (09:04)
[2022-05-20] MEDS: HYDROMORPHONE HCL 0.5 MG/ 0.5 ML SYRINGE IV PRN (22:07)
[2022-05-21] MEDS: NORCO, ANEXSIA 5/325MG TABLET (HYDROcodone/ACETAMINOPHEN) PO PRN ×4 (00:37→23:16)
[2022-05-21 06:00] VITALS: BP 145/78
[2022-05-21] MEDS: INSULIN LISPRO (NovoLOG) PER UNIT SC SCH ×4 (07:30→20:47)
[2022-05-21] MEDS: SILVER SULFADIAZINE 1% CR 50 GM JAR TOP SCH (09:00)
[2022-05-21] MEDS: LEVEMIR (INSULIN DETEMIR) 1 UNITS/0.01ML SC SCH (09:00)
[2022-05-21] MEDS: LACTOBACILLUS ACIDOPHILUS CAP (BACID) PO SCH (09:38)
[2022-05-21] MEDS: LOMOTIL 2.5MG/0.025MG TABLET PO SCH ×4 (09:39→20:46)
[2022-05-21] MEDS: FERROUS SULFATE 325MG TAB PO SCH ×2 (09:39→20:46)
[2022-05-21] MEDS: MAGNESIUM OXIDE 400MG TAB (MAG-OX) PO SCH ×3 (09:39→20:47)
[2022-05-21] MEDS: GABAPENTIN 300 MG CAP PO SCH ×2 (09:39→20:45)
[2022-05-21] MEDS: MELOXICAM (MOBIC) 7.5 MG TAB PO SCH (09:39)
[2022-05-21] MEDS: METOPROLOL SUCC (TopROL XL) 50MG **XL** TAB PO SCH (09:40)
[2022-05-21] MEDS: ENOXAPARIN 40MG/0.4ML SYRINGE (J1650 PER 10MG) SC SCH ×2 (09:41→20:45)
[2022-05-21] MEDS: NYSTATIN 100,000 UNITS/GM TOPICAL PWD 15GM TOP SCH ×2 (09:42→20:47)
[2022-05-21] MEDS: LIDOCAINE 5% (LIDODERM) PATCH TOP PRN (10:24)
[2022-05-21] MEDS: HYDROMORPHONE HCL 0.5 MG/ 0.5 ML SYRINGE IV PRN (15:16)
[2022-05-21] MEDS: SODIUM CHLORIDE 0.9% INJ 10 ML SYR IV SCH (15:18)
[2022-05-22] MEDS: ACETAMINOPHEN TAB 650MG DOSE (2X325MG) PO PRN (04:01)
[2022-05-22 05:00] VITALS: BP 164/89
[2022-05-22] MEDS: LEVEMIR (INSULIN DETEMIR) 1 UNITS/0.01ML SC SCH (08:08)
[2022-05-22] MEDS: INSULIN LISPRO (NovoLOG) PER UNIT SC SCH ×4 (08:09→21:00)
[2022-05-22] MEDS: ENOXAPARIN 40MG/0.4ML SYRINGE (J1650 PER 10MG) SC SCH ×2 (08:09→21:29)
[2022-05-22] MEDS: LACTOBACILLUS ACIDOPHILUS CAP (BACID) PO SCH (08:10)
[2022-05-22] MEDS: LOMOTIL 2.5MG/0.025MG TABLET PO SCH ×4 (08:10→21:28)
[2022-05-22] MEDS: MELOXICAM (MOBIC) 7.5 MG TAB PO SCH (08:11)
[2022-05-22] MEDS: LIDOCAINE 5% (LIDODERM) PATCH TOP PRN (08:11)
[2022-05-22] MEDS: NORCO, ANEXSIA 5/325MG TABLET (HYDROcodone/ACETAMINOPHEN) PO PRN ×3 (08:11→23:22)
[2022-05-22] MEDS: NYSTATIN 100,000 UNITS/GM TOPICAL PWD 15GM TOP SCH ×2 (08:12→21:29)
[2022-05-22] MEDS: METOPROLOL SUCC (TopROL XL) 50MG **XL** TAB PO SCH (08:12)
[2022-05-22] MEDS: FERROUS SULFATE 325MG TAB PO SCH ×2 (08:12→21:28)
[2022-05-22] MEDS: GABAPENTIN 300 MG CAP PO SCH ×2 (08:12→21:28)
[2022-05-22] MEDS: MAGNESIUM OXIDE 400MG TAB (MAG-OX) PO SCH ×3 (08:14→21:28)
[2022-05-22] MEDS: SODIUM CHLORIDE 0.9% INJ 10 ML SYR IV SCH (09:00)
[2022-05-22] MEDS: SODIUM CHLORIDE 0.9% INJ 10 ML SYR IV PRN (14:38)
[2022-05-22] MEDS: HYDROMORPHONE HCL 0.5 MG/ 0.5 ML SYRINGE IV PRN (14:38)
[2022-05-23] MEDS: ACETAMINOPHEN TAB 650MG DOSE (2X325MG) PO PRN (02:25)
[2022-05-23 05:45] VITALS: BP 140/78
[2022-05-23] MEDS: NORCO, ANEXSIA 5/325MG TABLET (HYDROcodone/ACETAMINOPHEN) PO PRN ×3 (05:49→21:38)
[2022-05-23] MEDS: LEVEMIR (INSULIN DETEMIR) 1 UNITS/0.01ML SC SCH (07:41)
[2022-05-23] MEDS: SODIUM CHLORIDE 0.9% INJ 10 ML SYR IV SCH (09:00)
[2022-05-23] MEDS: INSULIN LISPRO (NovoLOG) PER UNIT SC SCH ×5 (09:02→22:08)
[2022-05-23] MEDS: MELOXICAM (MOBIC) 7.5 MG TAB PO SCH (09:03)
[2022-05-23] MEDS: FERROUS SULFATE 325MG TAB PO SCH ×2 (09:03→21:37)
[2022-05-23] MEDS: LOMOTIL 2.5MG/0.025MG TABLET PO SCH (09:03)
[2022-05-23] MEDS: GABAPENTIN 300 MG CAP PO SCH ×2 (09:03→21:37)
[2022-05-23] MEDS: LACTOBACILLUS ACIDOPHILUS CAP (BACID) PO SCH (09:03)
[2022-05-23] MEDS: METOPROLOL SUCC (TopROL XL) 50MG **XL** TAB PO SCH (09:04)
[2022-05-23] MEDS: MAGNESIUM OXIDE 400MG TAB (MAG-OX) PO SCH ×3 (09:04→21:37)
[2022-05-23] MEDS: NYSTATIN 100,000 UNITS/GM TOPICAL PWD 15GM TOP SCH ×2 (09:05→21:38)
[2022-05-23] MEDS: ENOXAPARIN 40MG/0.4ML SYRINGE (J1650 PER 10MG) SC SCH ×2 (09:05→21:38)
[2022-05-23] MEDS: LIDOCAINE 5% (LIDODERM) PATCH TOP PRN (09:05)
[2022-05-23] MEDS: HYDROMORPHONE HCL 0.5 MG/ 0.5 ML SYRINGE IV PRN (15:27)
[2022-05-23] MEDS ORDERED: LOMOTIL 2.5MG/0.025MG TABLET PO PRN (17:00)
[2022-05-23] MEDS: traMADol 50 MG TAB PO PRN (19:42)
[2022-05-24] MEDS: NORCO, ANEXSIA 5/325MG TABLET (HYDROcodone/ACETAMINOPHEN) PO PRN ×3 (03:42→18:11)
[2022-05-24 06:00] VITALS: BP 124/81
[2022-05-24] MEDS: MELOXICAM (MOBIC) 7.5 MG TAB PO SCH (08:08)
[2022-05-24] MEDS: LEVEMIR (INSULIN DETEMIR) 1 UNITS/0.01ML SC SCH (08:08)
[2022-05-24] MEDS: ENOXAPARIN 40MG/0.4ML SYRINGE (J1650 PER 10MG) SC SCH ×2 (08:08→20:51)
[2022-05-24] MEDS: INSULIN LISPRO (NovoLOG) PER UNIT SC SCH ×4 (08:08→20:40)
[2022-05-24] MEDS: LACTOBACILLUS ACIDOPHILUS CAP (BACID) PO SCH (08:09)
[2022-05-24] MEDS: MAGNESIUM OXIDE 400MG TAB (MAG-OX) PO SCH ×3 (08:10→20:49)
[2022-05-24] MEDS: GABAPENTIN 300 MG CAP PO SCH ×2 (08:10→20:49)
[2022-05-24] MEDS: FERROUS SULFATE 325MG TAB PO SCH ×2 (08:11→20:50)
[2022-05-24] MEDS: METOPROLOL SUCC (TopROL XL) 50MG **XL** TAB PO SCH (08:11)
[2022-05-24] MEDS: SODIUM CHLORIDE 0.9% INJ 10 ML SYR IV SCH (08:13)
[2022-05-24] MEDS: NYSTATIN 100,000 UNITS/GM TOPICAL PWD 15GM TOP SCH ×2 (08:13→20:56)
[2022-05-24] MEDS: LIDOCAINE 5% (LIDODERM) PATCH TOP PRN (11:13)
[2022-05-24] MEDS: HYDROMORPHONE HCL 0.5 MG/ 0.5 ML SYRINGE IV PRN (16:30)
[2022-05-24] MEDS: SODIUM CHLORIDE 0.9% INJ 10 ML SYR IV PRN (16:30)
[2022-05-25] MEDS: NORCO, ANEXSIA 5/325MG TABLET (HYDROcodone/ACETAMINOPHEN) PO PRN ×4 (00:26→21:54)
[2022-05-25] MEDS: ACETAMINOPHEN TAB 650MG DOSE (2X325MG) PO PRN (04:25)
[2022-05-25 05:41] VITALS: BP 148/46
[2022-05-25] MEDS: LEVEMIR (INSULIN DETEMIR) 1 UNITS/0.01ML SC SCH (07:41)
[2022-05-25] MEDS: LIDOCAINE 5% (LIDODERM) PATCH TOP PRN (08:22)
[2022-05-25] MEDS: INSULIN LISPRO (NovoLOG) PER UNIT SC SCH ×4 (08:23→21:00)
[2022-05-25] MEDS: ENOXAPARIN 40MG/0.4ML SYRINGE (J1650 PER 10MG) SC SCH ×2 (08:23→21:53)
[2022-05-25] MEDS: NYSTATIN 100,000 UNITS/GM TOPICAL PWD 15GM TOP SCH ×2 (08:24→21:53)
[2022-05-25] MEDS: LACTOBACILLUS ACIDOPHILUS CAP (BACID) PO SCH (08:24)
[2022-05-25] MEDS: MAGNESIUM OXIDE 400MG TAB (MAG-OX) PO SCH ×3 (08:24→21:52)
[2022-05-25] MEDS: GABAPENTIN 300 MG CAP PO SCH ×2 (08:24→21:52)
[2022-05-25] MEDS: FERROUS SULFATE 325MG TAB PO SCH ×2 (08:25→21:52)
[2022-05-25] MEDS: METOPROLOL SUCC (TopROL XL) 50MG **XL** TAB PO SCH (08:25)
[2022-05-25] MEDS: MELOXICAM (MOBIC) 7.5 MG TAB PO SCH (08:25)
[2022-05-25] MEDS: SODIUM CHLORIDE 0.9% INJ 10 ML SYR IV SCH (08:26)
[2022-05-25] MEDS: HYDROMORPHONE HCL 0.5 MG/ 0.5 ML SYRINGE IV PRN (14:58)
[2022-05-25] MEDS: SODIUM CHLORIDE 0.9% INJ 10 ML SYR IV PRN (14:59)
[2022-05-25 21:30] VITALS: BP 127/79
[2022-05-25] MEDS: CALCIUM CARBONATE 500 MG CHEW U/D PO PRN (21:53)
[2022-05-25 23:37] LABS: HEMATOCRIT 31.2 % (42.0-52.0); HEMOGLOBIN 9.6 g/dl (13.5-17.5)
[2022-05-26] MEDS: ACETAMINOPHEN TAB 650MG DOSE (2X325MG) PO PRN (02:48)
[2022-05-26] MEDS: NORCO, ANEXSIA 5/325MG TABLET (HYDROcodone/ACETAMINOPHEN) PO PRN ×4 (04:14→23:27)
[2022-05-26 08:20] VITALS: BP 128/77
[2022-05-26] MEDS: NYSTATIN 100,000 UNITS/GM TOPICAL PWD 15GM TOP SCH ×2 (08:43→23:26)
[2022-05-26] MEDS: ENOXAPARIN 40MG/0.4ML SYRINGE (J1650 PER 10MG) SC SCH ×2 (08:44→23:26)
[2022-05-26] MEDS: FERROUS SULFATE 325MG TAB PO SCH ×2 (08:44→23:25)
[2022-05-26] MEDS: GABAPENTIN 300 MG CAP PO SCH ×2 (08:44→23:26)
[2022-05-26] MEDS: MAGNESIUM OXIDE 400MG TAB (MAG-OX) PO SCH ×3 (08:45→23:26)
[2022-05-26] MEDS: METOPROLOL SUCC (TopROL XL) 50MG **XL** TAB PO SCH (08:45)
[2022-05-26] MEDS: MELOXICAM (MOBIC) 7.5 MG TAB PO SCH (08:45)
[2022-05-26] MEDS: LEVEMIR (INSULIN DETEMIR) 1 UNITS/0.01ML SC SCH (08:46)
[2022-05-26] MEDS: INSULIN LISPRO (NovoLOG) PER UNIT SC SCH ×4 (08:46→23:27)
[2022-05-26] MEDS: LACTOBACILLUS ACIDOPHILUS CAP (BACID) PO SCH (08:46)
[2022-05-26] MEDS: SODIUM CHLORIDE 0.9% INJ 10 ML SYR IV SCH (08:46)
[2022-05-26] MEDS: LIDOCAINE 5% (LIDODERM) PATCH TOP PRN (08:58)
[2022-05-26] MEDS: HYDROMORPHONE HCL 0.5 MG/ 0.5 ML SYRINGE IV PRN (13:43)
[2022-05-26] MEDS: DIMETHICONE 2% OINTMENT(VANICREAM) 70GM TUBE TOP PRN (23:29)
[2022-05-27] MEDS: traMADol 50 MG TAB PO PRN (01:25)
[2022-05-27] MEDS: traZODone 100 MG TAB PO PRN ×2 (01:25→23:23)
[2022-05-27 06:00] VITALS: BP 121/77
[2022-05-27] MEDS: SODIUM CHLORIDE 0.9% INJ 10 ML SYR IV PRN (06:10)
[2022-05-27] MEDS: NORCO, ANEXSIA 5/325MG TABLET (HYDROcodone/ACETAMINOPHEN) PO PRN ×3 (06:11→19:15)
[2022-05-27 06:39] LABS: HEMATOCRIT 32.6 % (42.0-52.0); MEAN CORPUSCULAR HEMOGLOBIN 31.3 pg (27.0-33.0); MEAN CORPUSCULAR HGB CONC 30.7 g/dl (32.0-36.5); MEAN CORPUSCULAR VOLUME 101.9 fl (80.0-96.0); PLATELET COUNT, AUTOMATED 139 10^3/uL (150-450); WHITE BLOOD COUNT 6.5 10^3/uL (4.0-10.0)
[2022-05-27 07:03] LABS: ALBUMIN 2.8 G/DL (3.2-5.2); ALKALINE PHOSPHATASE 159 U/L (46-116); ALT/SGPT 51 U/L (7.0-40); AST/SGOT 39 U/L (<34); BILIRUBIN,TOTAL 0.6 MG/DL (0.3-1.2); BLOOD UREA NITROGEN 25 MG/DL (9-23); CALCIUM LEVEL 8.6 MG/DL (8.3-10.6); CARBON DIOXIDE LEVEL 26 MMOL/L (20-31); CHLORIDE LEVEL 107 MMOL/L (98-107); CREATININE FOR GFR 0.79 MG/DL (0.70-1.30); GLOMERULAR FILTRATION RATE > 60.0 (>49); GLUCOSE, FASTING 138 MG/DL (74-106); POTASSIUM SERUM 4.2 MMOL/L (3.5-5.1); SODIUM LEVEL 141 MMOL/L (136-145); TOTAL PROTEIN 6.2 G/DL (5.7-8.2)
[2022-05-27] MEDS: LEVEMIR (INSULIN DETEMIR) 1 UNITS/0.01ML SC SCH (08:32)
[2022-05-27] MEDS: INSULIN LISPRO (NovoLOG) PER UNIT SC SCH ×4 (08:33→21:00)
[2022-05-27] MEDS: MAGNESIUM OXIDE 400MG TAB (MAG-OX) PO SCH ×3 (08:34→22:06)
[2022-05-27] MEDS: GABAPENTIN 300 MG CAP PO SCH ×3 (08:34→22:06)
[2022-05-27] MEDS: MELOXICAM (MOBIC) 7.5 MG TAB PO SCH (08:40)
[2022-05-27] MEDS: LACTOBACILLUS ACIDOPHILUS CAP (BACID) PO SCH (08:40)
[2022-05-27] MEDS: FERROUS SULFATE 325MG TAB PO SCH ×2 (08:41→22:06)
[2022-05-27] MEDS: METOPROLOL SUCC (TopROL XL) 50MG **XL** TAB PO SCH (08:42)
[2022-05-27] MEDS: ENOXAPARIN 40MG/0.4ML SYRINGE (J1650 PER 10MG) SC SCH ×2 (08:44→22:05)
[2022-05-27] MEDS: SODIUM CHLORIDE 0.9% INJ 10 ML SYR IV SCH (08:45)
[2022-05-27] MEDS: NYSTATIN 100,000 UNITS/GM TOPICAL PWD 15GM TOP SCH ×2 (13:06→22:07)
[2022-05-27] MEDS: HYDROMORPHONE HCL 0.5 MG/ 0.5 ML SYRINGE IV PRN (15:42)
[2022-05-28] MEDS: LIDOCAINE 5% (LIDODERM) PATCH TOP PRN (01:21)
[2022-05-28] MEDS: NORCO, ANEXSIA 5/325MG TABLET (HYDROcodone/ACETAMINOPHEN) PO PRN ×4 (01:22→20:54)
[2022-05-28 06:00] VITALS: BP 115/81
[2022-05-28] MEDS: INSULIN LISPRO (NovoLOG) PER UNIT SC SCH ×4 (07:50→20:53)
[2022-05-28] MEDS: MAGNESIUM OXIDE 400MG TAB (MAG-OX) PO SCH ×3 (09:03→20:52)
[2022-05-28] MEDS: GABAPENTIN 300 MG CAP PO SCH ×3 (09:03→20:53)
[2022-05-28] MEDS: MELOXICAM (MOBIC) 7.5 MG TAB PO SCH (09:04)
[2022-05-28] MEDS: LACTOBACILLUS ACIDOPHILUS CAP (BACID) PO SCH (09:04)
[2022-05-28] MEDS: METOPROLOL SUCC (TopROL XL) 50MG **XL** TAB PO SCH (09:04)
[2022-05-28] MEDS: FERROUS SULFATE 325MG TAB PO SCH ×2 (09:05→20:52)
[2022-05-28] MEDS: LEVEMIR (INSULIN DETEMIR) 1 UNITS/0.01ML SC SCH (09:06)
[2022-05-28] MEDS: ENOXAPARIN 40MG/0.4ML SYRINGE (J1650 PER 10MG) SC SCH ×2 (09:08→20:53)
[2022-05-28] MEDS: SODIUM CHLORIDE 0.9% INJ 10 ML SYR IV SCH (09:11)
[2022-05-28] MEDS: NYSTATIN 100,000 UNITS/GM TOPICAL PWD 15GM TOP SCH ×2 (09:14→20:54)
[2022-05-28] MEDS: HYDROMORPHONE HCL 0.5 MG/ 0.5 ML SYRINGE IV PRN (15:53)
[2022-05-28] MEDS: ONDANSETRON 4MG TAB PO PRN (20:54)
[2022-05-28] MEDS: CALCIUM CARBONATE 500 MG CHEW U/D PO PRN (20:54)
[2022-05-29] MEDS: NORCO, ANEXSIA 5/325MG TABLET (HYDROcodone/ACETAMINOPHEN) PO PRN ×4 (03:01→22:23)
[2022-05-29 06:00] VITALS: BP 120/79
[2022-05-29] MEDS: METOPROLOL SUCC (TopROL XL) 50MG **XL** TAB PO SCH (09:00)
[2022-05-29] MEDS: NYSTATIN 100,000 UNITS/GM TOPICAL PWD 15GM TOP SCH ×2 (09:55→22:22)
[2022-05-29] MEDS: GABAPENTIN 300 MG CAP PO SCH ×3 (09:55→22:21)
[2022-05-29] MEDS: MAGNESIUM OXIDE 400MG TAB (MAG-OX) PO SCH ×3 (09:56→22:20)
[2022-05-29] MEDS: MELOXICAM (MOBIC) 7.5 MG TAB PO SCH (09:56)
[2022-05-29] MEDS: LACTOBACILLUS ACIDOPHILUS CAP (BACID) PO SCH (09:56)
[2022-05-29] MEDS: FERROUS SULFATE 325MG TAB PO SCH ×2 (09:56→22:20)
[2022-05-29] MEDS: INSULIN LISPRO (NovoLOG) PER UNIT SC SCH ×4 (09:59→22:21)
[2022-05-29] MEDS: LEVEMIR (INSULIN DETEMIR) 1 UNITS/0.01ML SC SCH (09:59)
[2022-05-29] MEDS: ENOXAPARIN 40MG/0.4ML SYRINGE (J1650 PER 10MG) SC SCH ×2 (10:01→22:22)
[2022-05-29] MEDS: SODIUM CHLORIDE 0.9% INJ 10 ML SYR IV SCH (10:02)
[2022-05-29] MEDS: ONDANSETRON 4MG TAB PO PRN (11:14)
[2022-05-29] MEDS: CALCIUM CARBONATE 500 MG CHEW U/D PO PRN (11:15)
[2022-05-29] MEDS: SODIUM CHLORIDE 0.9% INJ 10 ML SYR IV PRN (14:13)
[2022-05-29] MEDS: HYDROMORPHONE HCL 0.5 MG/ 0.5 ML SYRINGE IV PRN (14:14)
[2022-05-29] MEDS: DIMETHICONE 2% OINTMENT(VANICREAM) 70GM TUBE TOP PRN (22:22)
[2022-05-29] MEDS: traZODone 100 MG TAB PO PRN (23:48)
[2022-05-29] MEDS: traMADol 50 MG TAB PO PRN (23:48)
[2022-05-29] MEDS: LIDOCAINE 5% (LIDODERM) PATCH TOP PRN (23:49)
[2022-05-30] MEDS: SODIUM CHLORIDE 0.9% INJ 10 ML SYR IV PRN (05:55)
[2022-05-30] MEDS: NORCO, ANEXSIA 5/325MG TABLET (HYDROcodone/ACETAMINOPHEN) PO PRN ×3 (05:56→18:29)
[2022-05-30 06:00] VITALS: BP 145/77
[2022-05-30 06:14] LABS: HEMATOCRIT 31.3 % (42.0-52.0); HEMOGLOBIN 9.7 g/dl (13.5-17.5); MEAN CORPUSCULAR HEMOGLOBIN 31.3 pg (27.0-33.0); PLATELET COUNT, AUTOMATED 114 10^3/uL (150-450); WHITE BLOOD COUNT 6.3 10^3/uL (4.0-10.0)
[2022-05-30 07:22] LABS: ALBUMIN 2.8 G/DL (3.2-5.2); ALKALINE PHOSPHATASE 153 U/L (46-116); ALT/SGPT 62 U/L (7.0-40); AST/SGOT 45 U/L (<34); BILIRUBIN,TOTAL 0.6 MG/DL (0.3-1.2); BLOOD UREA NITROGEN 23 MG/DL (9-23); CALCIUM LEVEL 8.3 MG/DL (8.3-10.6); CARBON DIOXIDE LEVEL 26 MMOL/L (20-31); CHLORIDE LEVEL 103 MMOL/L (98-107); CREATININE FOR GFR 0.75 MG/DL (0.70-1.30); GLOMERULAR FILTRATION RATE > 60.0 (>49); GLUCOSE, FASTING 154 MG/DL (74-106); POTASSIUM SERUM 4.4 MMOL/L (3.5-5.1); SODIUM LEVEL 137 MMOL/L (136-145); TOTAL PROTEIN 6.4 G/DL (5.7-8.2)
[2022-05-30] MEDS: ENOXAPARIN 40MG/0.4ML SYRINGE (J1650 PER 10MG) SC SCH ×2 (09:00→21:54)
[2022-05-30] MEDS: INSULIN LISPRO (NovoLOG) PER UNIT SC SCH ×4 (09:26→21:00)
[2022-05-30] MEDS: LACTOBACILLUS ACIDOPHILUS CAP (BACID) PO SCH (09:27)
[2022-05-30] MEDS: GABAPENTIN 300 MG CAP PO SCH ×3 (09:27→21:48)
[2022-05-30] MEDS: MELOXICAM (MOBIC) 7.5 MG TAB PO SCH (09:27)
[2022-05-30] MEDS: LEVEMIR (INSULIN DETEMIR) 1 UNITS/0.01ML SC SCH (09:27)
[2022-05-30] MEDS: MAGNESIUM OXIDE 400MG TAB (MAG-OX) PO SCH ×3 (09:27→21:48)
[2022-05-30] MEDS: SODIUM CHLORIDE 0.9% INJ 10 ML SYR IV SCH (09:28)
[2022-05-30] MEDS: FERROUS SULFATE 325MG TAB PO SCH ×2 (09:28→21:47)
[2022-05-30] MEDS: NYSTATIN 100,000 UNITS/GM TOPICAL PWD 15GM TOP SCH ×2 (09:31→21:49)
[2022-05-30] MEDS: DIMETHICONE 2% OINTMENT(VANICREAM) 70GM TUBE TOP PRN (09:31)
[2022-05-30] MEDS: METOPROLOL SUCC (TopROL XL) 50MG **XL** TAB PO SCH (09:32)
[2022-05-30] MEDS: HYDROMORPHONE HCL 0.5 MG/ 0.5 ML SYRINGE IV PRN (15:24)
[2022-05-31] MEDS: NORCO, ANEXSIA 5/325MG TABLET (HYDROcodone/ACETAMINOPHEN) PO PRN ×4 (00:31→18:41)
[2022-05-31] MEDS: traZODone 100 MG TAB PO PRN ×2 (00:31→23:18)
[2022-05-31 06:00] VITALS: BP 143/84
[2022-05-31] MEDS: LEVEMIR (INSULIN DETEMIR) 1 UNITS/0.01ML SC SCH (08:58)
[2022-05-31] MEDS: INSULIN LISPRO (NovoLOG) PER UNIT SC SCH ×4 (08:58→20:27)
[2022-05-31] MEDS: MAGNESIUM OXIDE 400MG TAB (MAG-OX) PO SCH ×3 (08:59→20:23)
[2022-05-31] MEDS: GABAPENTIN 300 MG CAP PO SCH (08:59)
[2022-05-31] MEDS: METOPROLOL SUCC (TopROL XL) 50MG **XL** TAB PO SCH (09:00)
[2022-05-31] MEDS: SODIUM CHLORIDE 0.9% INJ 10 ML SYR IV SCH (09:00)
[2022-05-31] MEDS: LACTOBACILLUS ACIDOPHILUS CAP (BACID) PO SCH (09:00)
[2022-05-31] MEDS: MELOXICAM (MOBIC) 7.5 MG TAB PO SCH (09:00)
[2022-05-31] MEDS: FERROUS SULFATE 325MG TAB PO SCH ×2 (09:00→20:23)
[2022-05-31] MEDS: ENOXAPARIN 40MG/0.4ML SYRINGE (J1650 PER 10MG) SC SCH ×2 (09:01→20:23)
[2022-05-31] MEDS: NYSTATIN 100,000 UNITS/GM TOPICAL PWD 15GM TOP SCH ×2 (09:02→23:17)
[2022-05-31] MEDS: LIDOCAINE 5% (LIDODERM) PATCH TOP PRN (12:19)
[2022-05-31] MEDS: GABAPENTIN 400MG CAP PO SCH ×2 (16:50→20:24)
[2022-05-31] MEDS: HYDROMORPHONE HCL 0.5 MG/ 0.5 ML SYRINGE IV PRN (16:51)
[2022-05-31] MEDS ORDERED: CYCL5TAB PO (18:39)
[2022-05-31] MEDS ORDERED: MAGN400T2 PO (18:39)
[2022-05-31] MEDS ORDERED: RISATAB3 PO (18:39)
[2022-05-31] MEDS ORDERED: ACET1TAB55 PO (18:39)
[2022-05-31] MEDS ORDERED: NYST10006 TOP (18:39)
[2022-05-31] MEDS ORDERED: FERR1TAB8 PO (18:39)
[2022-05-31] MEDS ORDERED: GABA-283 PO (18:39)
[2022-05-31] MEDS: CYCLOBENZAPRINE 5MG TABLET PO PRN (20:22)
[2022-06-01] MEDS: NORCO, ANEXSIA 5/325MG TABLET (HYDROcodone/ACETAMINOPHEN) PO PRN (01:11)
[2022-06-01 05:30] VITALS: BP 109/66
[2022-06-01] MEDS: SODIUM CHLORIDE 0.9% INJ 10 ML SYR IV SCH (09:00)
[2022-06-01] MEDS: NYSTATIN 100,000 UNITS/GM TOPICAL PWD 15GM TOP SCH (09:00)
[2022-06-01] MEDS: LEVEMIR (INSULIN DETEMIR) 1 UNITS/0.01ML SC SCH (09:30)
[2022-06-01] MEDS: INSULIN LISPRO (NovoLOG) PER UNIT SC SCH (09:30)
[2022-06-01] MEDS: FERROUS SULFATE 325MG TAB PO SCH (09:31)
[2022-06-01] MEDS: GABAPENTIN 400MG CAP PO SCH (09:32)
[2022-06-01] MEDS: MELOXICAM (MOBIC) 7.5 MG TAB PO SCH (09:32)
[2022-06-01] MEDS: LACTOBACILLUS ACIDOPHILUS CAP (BACID) PO SCH (09:32)
[2022-06-01] MEDS: MAGNESIUM OXIDE 400MG TAB (MAG-OX) PO SCH (09:32)
[2022-06-01 09:33] VITALS: BP 118/74
[2022-06-01] MEDS: METOPROLOL SUCC (TopROL XL) 50MG **XL** TAB PO SCH (09:33)
[2022-06-01] MEDS: ENOXAPARIN 40MG/0.4ML SYRINGE (J1650 PER 10MG) SC SCH (10:58)
[2022-06-01] MEDS: HYDROMORPHONE HCL 0.5 MG/ 0.5 ML SYRINGE IV PRN (10:59)
[2022-06-01] MEDS: CYCLOBENZAPRINE 5MG TABLET PO PRN (11:00)
== END 2022-06-01 11:33 | DRG 710 ==
LOC: M ED 16:24 → M ED INP 22:37 → ENRESERV 05-08 14:25 → M MSPAV 05-08 17:05
PROVIDERS: ADMIT Internal Medicine; ATTEND General Practice
PROC: 0KBS0ZZ Excision of Right Lower Leg Muscle, Open Approach (ICD-10-PCS; principal; 2022-05-10 14:00)
PROC: 30233N1 Transfusion of Nonautologous Red Blood Cells into Peripheral Vein, Percutaneous Approach (ICD-10-PCS; 2022-05-11)
DX: A41.9 Sepsis, unspecified organism (principal); C78.00 Secondary malignant neoplasm of unspecified lung; E11.52 Type 2 diabetes mellitus with diabetic peripheral angiopathy with gangrene; C79.31 Secondary malignant neoplasm of brain; K92.2 Gastrointestinal hemorrhage, unspecified; L03.115 Cellulitis of right lower limb; E66.01 Morbid (severe) obesity due to excess calories; L03.116 Cellulitis of left lower limb; L97.219 Non-pressure chronic ulcer of right calf with unspecified severity; L97.229 Non-pressure chronic ulcer of left calf with unspecified severity; Z68.42 Body mass index [BMI] 45.0-49.9, adult; C18.9 Malignant neoplasm of colon, unspecified; K74.60 Unspecified cirrhosis of liver; B96.20 Unspecified Escherichia coli [E. coli] as the cause of diseases classified elsewhere; D50.9 Iron deficiency anemia, unspecified; I10 Essential (primary) hypertension; I87.2 Venous insufficiency (chronic) (peripheral); R19.7 Diarrhea, unspecified; G89.3 Neoplasm related pain (acute) (chronic); Z88.2 Allergy status to sulfonamides; Z79.899 Other long term (current) drug therapy